=== PATIENT | female | born 1935 | race Caucasian/White ===

== ENCOUNTER 2021-03-13 06:15 | Inpatient (IN) ==
[2021-03-13] MEDS ORDERED: ASPIRIN 81 MG TAB.CHEW CHEWED ONE (06:17)
[2021-03-13] MEDS ORDERED: FUROSEMIDE 40 MG/4 ML VIAL IV ONE ×2 (06:29→07:44)
--- NOTE | 2021-03-13 06:34 | Emergency Department Note ---
SOB HPI General Chief Complaint: Shortness of Breath/Dyspnea Stated Complaint: shortness of breath Time Seen by Provider: 03/13/21 06:17 Source: patient Mode of arrival: wheelchair Limitations: no limitations History of Present Illness HPI Narrative: Narrative: 85-year-old female presents the emergency department complaining of shortness of breath and chest pain as well as epigastric pain. She does have history of open heart surgery including 3 valve replacement including ASD repair as well as bypass. Said this happened back in 1992. States that she has been doing well since. Says she does take Coumadin. Says she does have history of A. fib is unsure how often said tonight she woke up and had a hard time breathing. She does have anxiety. Also CHF where she does take 80 mg of Lasix daily. She has had no cough no congestion denies any fevers. She says the epigastric pain is right in radiating says about a 6 out of 10 no change with eating drinking or laying down. Said that she is never had this pain before. She is denying any other symptoms otherwise. Related Data Home Medications Medication Instructions Recorded Confirmed flaxseed 1,200 mg PO DAILY 08/12/15 01/07/21 glipizide 10 mg PO DAILY 08/12/15 01/07/21 metformin [Glucophage] 1,000 mg PO BID 08/12/15 01/07/21 nitroglycerin 0.4 mg SL Q5M PRN 08/12/15 01/07/21 potassium chloride [K-Tab ER] 20 meq PO DAILY 08/12/15 01/07/21 cholecalciferol (vitamin D3) 1,000 unit PO DAILY 02/01/18 01/07/21 [Vitamin D3] [id number]-lutein 1 ea PO DAILY 02/01/18 01/07/21 [Centrum Silver Tablet] Saccharomyces boulardii 1 tab PO QDAY 10/04/20 01/07/21 albuterol sulfate 90 mcg/actuation 2 puff INHALATION Q4H PRN g 10/04/20 01/07/21 aerosol inhaler aspirin 81 mg tablet 81 mg PO QDAY 10/04/20 01/07/21 blood-glucose meter #1 each 10/04/20 01/07/21 cholecalciferol (vitamin D3) 25 25 mcg PO QDAY 10/04/20 01/07/21 mcg (1,000 unit) tablet clotrimazole 1 % topical cream 1 applic TOPICAL BID 10/04/20 01/07/21 fluticasone propionate 50 2 spray INTRANASAL QDAY 10/04/20 01/07/21 mcg/actuation nasal spray,suspension fosinopril 40 mg tablet 40 mg PO DAILY 10/04/20 01/07/21 furosemide 40 mg tablet 80 mg PO QAM tab 10/04/20 01/07/21 lorazepam 0.5 mg tablet 0.5 mg PO QDAY PRN 10/04/20 01/07/21 metoprolol tartrate 25 mg tablet 25 mg PO BID tab 10/04/20 01/07/21 [id number] 1 tab PO QDAY 10/04/20 01/07/21 omega-3 fatty acids 1 tab PO QDAY 10/04/20 01/07/21 prazosin 1 mg capsule 2 mg PO BID cap 10/04/20 01/07/21 semaglutide 0.25 mg SUB-Q QWEEK 10/04/20 01/07/21 simvastatin 40 mg tablet 40 mg PO QDAY tab 10/04/20 01/07/21 sodium chloride 2.65 % nasal spray 1 % INTRANASAL Q1H ml 10/04/20 01/07/21 aerosol spironolactone 25 mg tablet 25 mg PO QDAY 10/04/20 01/07/21 warfarin 5 mg tablet 7.5 mg PO DAILY 10/04/20 01/07/21 Previous Rx's Medication Instructions Recorded metoprolol tartrate 25 mg PO BID #30 tab 02/01/18 diclofenac sodium 1 % topical gel 2 g .ROUTE .COMPLEX PRN #100 g 01/07/21 Allergies Allergy/AdvReac Type Severity Reaction Status Date / Time cephalexin Allergy Unknown Hives Verified 01/07/21 10:11 clopidogrel [From Plavix] Allergy Unknown Headache, Verified 01/07/21 10:11 Nausea digoxin Allergy Unknown Unknown Verified 01/07/21 10:11 Enoxaparin [From Lovenox] Allergy Unknown Unknown Verified 01/07/21 10:11 hydrocodone Allergy Unknown Nausea Verified 01/07/21 10:11 levofloxacin [From LEVAQUIN] Allergy Unknown UNKNOWN Verified 01/07/21 10:11 meperidine Allergy Unknown Nausea Verified 01/07/21 10:11 metronidazole [From FLAGYL] Allergy Unknown UNKNOWN Verified 01/07/21 10:11 Sulfa (Sulfonamide Allergy Unknown Unknown Verified 01/07/21 10:11 Antibiotics) Beta-Blockers AdvReac Unknown Unknown Verified 01/07/21 10:11 (Beta-Adrenergic Bloc Review of Systems ROS ROS Narrative: Narrative: All systems ED: reviewed and negative except as stated. PFS Narrative Patient History Narrative: Narrative: Medical/Surgical/Family History All Active Problems Chest pain (Acute) Acute dyspnea (Acute) Pulmonary edema (Chronic) Cervicalgia (Chronic) Cervical spondylosis (Chronic) Degenerative cervical disc (Chronic) Facet arthropathy, cervical (Chronic) Cervical radiculopathy (Chronic) Chronic pain (Chronic) Easy bruising (Chronic) Memory loss (Chronic) Arthralgia (Chronic) Constipation (Chronic) Heart palpitations (Chronic) Sinus problem (Chronic) Dry mouth (Chronic) Dry eyes (Chronic) Weight loss (Chronic) Anxiety (Chronic) Fracture closed, nasal bone (Chronic) SOB (shortness of breath) (Chronic) Osteopenia (Chronic) Osteoporosis (Chronic) Joint pain, knee (Chronic) Menopause (Chronic) Edema (Chronic) Dyspnea (Chronic) Diabetes mellitus, type II (Chronic ~06/16/18) Costochondritis (Chronic) Chest pain (Chronic) Cellulitis (Chronic) Anemia (Chronic) Sinusitis (Chronic) Abdominal pain (Chronic) History of surgery (Chronic ~1992) History of appendectomy (Chronic ~11/15/1943) History of cholecystectomy (Chronic ~11/15/1953) History of coronary artery bypass graft (Chronic ~11/15/92) History of surgical removal of lesion (Chronic ~11/15/07) History of abdominal surgery (Chronic ~11/15/01) History of hysterectomy (Chronic ~11/15/01) History of partial surgical removal of colon (Chronic ~11/15/01) History of cataract surgery (Chronic ~11/15/06) History of lumpectomy (Chronic) History of colonoscopy (Chronic ~07/07/12) History of total knee arthroplasty (Chronic) Vocal cord cancer (Chronic) History of throat surgery (Chronic) Malignant tumor of breast (Chronic ~06/16/18) Hypertensive disorder (Chronic ~02/08/18) Hyperlipidemia (Chronic ~02/08/18) Complicated grieving (Chronic ~03/27/18) History of coronary artery stent placement (Chronic ~2006) Coronary arteriosclerosis (Chronic ~06/16/18) Osteoarthritis (Chronic ~06/16/18) Atrial septal defect (Chronic ~06/16/18) Diverticular disease (Chronic ~06/16/18) Malignant tumor of larynx (Chronic ~06/16/18) Malignant neoplasm of skin (Chronic ~06/16/18) Diabetes mellitus (Chronic ~06/16/18) Chronic diastolic heart failure (Chronic ~03/28/19) On anticoagulant therapy (Chronic) Renovascular hypertension (Chronic ~12/21/19) 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) Bronchitis (Chronic) Congestive heart failure (Chronic) Paroxysmal SVT (supraventricular tachycardia) (Chronic) Atrial fibrillation (Chronic) S/P biopsy (Chronic 08/13/15) Medical History Abdominal pain Rt Lower Quadrant Anemia Anxiety Arthralgia Atrial fibrillation Atrial septal defect (~06/16/18) Bronchitis Cellulitis Chest Wall Cervical radiculopathy Cervical radiculopathy due to degenerative joint disease of spine Cervical spondylosis Cervicalgia Chest pain Chronic diastolic heart failure (~03/28/19) Chronic pain Complicated grieving (~03/27/18) Congestive heart failure Constipation Coronary arteriosclerosis (~06/16/18) Costochondritis Degenerative cervical disc Diabetes mellitus, type II (~06/16/18) Diverticular disease (~06/16/18) Dry eyes Dry mouth Dyspnea Easy bruising Edema Facet arthropathy, cervical Fracture closed, nasal bone Heart palpitations Hyperlipidemia (~02/08/18) Hypertensive disorder (~02/08/18) Joint pain, knee Malignant neoplasm of skin (~06/16/18) Malignant tumor of breast (~06/16/18) Right - Lumpectomy and Radiation Malignant tumor of larynx (~06/16/18) Memory loss Menopause On anticoagulant therapy Osteoarthritis (~06/16/18) Osteopenia Osteoporosis Paroxysmal SVT (supraventricular tachycardia) Renovascular hypertension (~12/21/19) Sinus problem Sinusitis SOB (shortness of breath) Vocal cord cancer Squamous Cell Carcinoma Weight loss Surgical History History of abdominal surgery (~11/15/01) Diverticular Abscess History of appendectomy (~11/15/1943) History of cataract surgery (~11/15/06) History of cholecystectomy (~11/15/1953) History of colonoscopy (~07/07/12) History of coronary artery bypass graft (~11/15/92) History of coronary artery stent placement (~2006) History of hysterectomy (~11/15/01) 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 Anish Quintanilla - Left Vocal Cord Family History Brother Acute myocardial infarction Diabetes mellitus Osteoarthritis Pneumonia Sister Diverticular disease Daughter Fibromyalgia Father Leukemia Osteoarthritis Malignant neoplasm of skin Mother , Age 53 CVA (cerebral vascular accident) Family/Other CVA (cerebral vascular accident) Other Colon cancer Social History Smoking Status: Former smoker Alcohol Intake Frequency: does not drink Substance Use: does not use Exam Narrative Narrative: Narrative: Vital signs noted General: Awake. Alert. No distress. Skin: Warm. Dry. No rash. HEENT: NCAT. PERRL. EOMI. No conjunctivitis. No nystagmus. No pharyngitis. Membranes moist. Neck: No PTP. Good ROM. No meningeal signs. No stridor. No thyromegaly. No JVD. Cardiovascular: Tachycardic and regular. No murmur. No rubs. No gallops. Respiratory: No respiratory distress. Breath sounds equal. Lungs clear. Gastrointestinal: Abdomen soft. No tenderness. No distention. Normal bowel sounds. No palpable organomegaly or masses. Back: No deformity. No CVAT. Musculoskeletal: No tenderness. No swelling. No erythema. 2+ bilateral pedal edema. Good peripheral pulses x 4 Lymphatic: No palpable adenopathy. Neurological: No focal neurological deficits observed. General Limitations: no limitations Course Vital Signs Vital signs: Vital Signs Temperature 97.1 F 03/13/21 06:17 Pulse Rate 105 H 03/13/21 06:17 Respiratory Rate 18 03/13/21 06:17 Blood Pressure 152/108 03/13/21 06:17 Pulse Oximetry (%) 95 03/13/21 06:17 Temperature 97.1 F 03/13/21 06:17 Pulse Rate 105 H 03/13/21 06:17 Respiratory Rate 18 03/13/21 06:17 Blood Pressure 152/108 03/13/21 06:17 Pulse Oximetry (%) 95 03/13/21 06:17 MDM MDM Narrative Medical decision making narrative: Narrative: Patient looks well on exam. She does have pitting edema. I did look at her previous history she is always in a BSA on all of her old previous EKGs so this is not new onset of atrial fibrillation. She originally was having a heart rate around 105 when I does show tachycardia in A. fib at 131. I think this is all secondary to most likely fluid overload. Chest x-ray I did interpret myself and does show vascular congestion throughout so I did give patient 40 mg of IV Lasix to help with the diuresis at this time. She also received aspirin to decrease mortality for ACS. Will get basic labs including CBC CMP troponin as well as a BNP. We will also get a lipase secondary to patient having his epigastric pain. Disposition will be pending results Patient still here at the end of my shift will be signed out to the daytime physician. Patient signed out in stable condition please refer to their note for further plan and disposition. Lab Data Result diagrams: 03/13/21 06:25 03/13/21 06:24 Discharge Plan Patient/Caregiver Discharge Instructions Pt seen by EMERGENCY ROOM DOCTOR/PA only: No Clinical Impression: Chest pain, Acute dyspnea Patient Disposition: Still a Patient Follow up with: Miranda Sinha MD [Primary Care Provider] - Prescriptions: No Action aspirin 81 mg tablet 81 mg PO QDAY RF: 0 [place] Allergy and Sinus 2.65 % aerosol,spray 1 % INTRANASAL Q1H RF: 0 [id number] 1 tab PO QDAY RF: 0 clotrimazole 1 % cream 1 applic TOPICAL BID RF: 0 (DME) blood-glucose meter [Contour Next Meter] Misc See Rx Instructions .ROUTE .MEDSUPPLY Qty: 1 RF: 0 omega-3 fatty acids 1 tab PO QDAY RF: 0 fluticasone propionate 50 mcg/actuation spray,suspension 2 spray INTRANASAL QDAY RF: 0 furosemide 40 mg tablet 80 mg PO QAM RF: 0 lorazepam 0.5 mg tablet 0.5 mg PO QDAY PRN (Reason: Anxiety) RF: 0 Ozempic 0.25 mg or 0.5 mg(2 mg/1.5 mL) pen injector 0.25 mg SUB-Q QWEEK RF: 0 Saccharomyces boulardii 1 tab PO QDAY RF: 0 spironolactone 25 mg tablet 25 mg PO QDAY RF: 0 albuterol sulfate [Ventolin HFA] 90 mcg/actuation HFA aerosol inhaler 2 puff INHALATION Q4H PRN (Reason: Shortness Of Breath) RF: 0 cholecalciferol (vitamin D3) 25 mcg (1,000 unit) tablet 25 mcg PO QDAY RF: 0 diclofenac sodium 1 % gel 2 g .ROUTE .COMPLEX PRN (Reason: pain) Qty: 100 RF: 0 metformin [Glucophage] 500 MG tablet 1,000 mg PO BID RF: 0 nitroglycerin 0.4 MG tablet, sublingual 0.4 mg SL Q5M PRN (Reason: Chest Pain) RF: 0 glipizide 5 MG tablet 10 mg PO DAILY RF: 0 flaxseed 1,000 MG capsule 1,200 mg PO DAILY RF: 0 potassium chloride [K-Tab] 20 MEQ tablet extended release 20 meq PO DAILY RF: 0 fosinopril 40 mg tablet 40 mg PO DAILY RF: 0 metoprolol tartrate 25 mg tablet 25 mg PO BID RF: 0 prazosin [Minipress] 1 mg capsule 2 mg PO BID RF: 0 simvastatin 40 mg tablet 40 mg PO QDAY RF: 0 warfarin [Jantoven] 5 mg tablet 7.5 mg PO DAILY RF: 0 Centrum Silver 1 EACH tablet 1 ea PO DAILY RF: 0 cholecalciferol (vitamin D3) [Vitamin D3] 1,000 UNIT tablet 1,000 unit PO DAILY RF: 0 metoprolol tartrate 25 MG tablet 25 mg PO BID Qty: 30 RF: 0
[2021-03-13 07:01] LABS: Basophils # (Auto) 0.07 K/mcL (0.00-0.20); Basophils % (Auto) 0.7 % (0.0-2.0); Lymphocytes # (Auto) 1.21 K/mcL (1.50-4.80); Mean Cell Volume 99.7 fL (80.0-100.0); Mean Corpuscular HGB Conc 33.3 g/dL (31.0-36.0); Mean Platelet Volume 10.4 fL (7.4-10.4); Monocytes # (Auto) 0.93 K/mcL (0.10-0.90); Monocytes % (Auto) 9.2 % (1.0-12.0); Neutrophils % (Auto) 76.1 % (38.0-78.0); Platelet Count 213 K/mcL (140-440); RBC 3.61 M/mcL (4.00-5.20); WBC 10.1 K/mcL (4.5-11.0)
[2021-03-13 07:37] LABS: ALT/SGPT 25 U/L (<40); AST/SGOT 29 U/L (<32); Albumin 4.3 gm/dL (3.2-5.2); Albumin/Globulin Ratio 1.8 (1.0-2.3); Alkaline Phosphatase 81 U/L (39-117); Bilirubin,Total 0.5 mg/dL (0.1-1.0); Blood Urea Nitrogen 19 mg/dL (8-23); Calcium 8.8 mg/dL (8.6-10.4); Carbon Dioxide 24 mmol/L (22-30); Chloride 102 mmol/L (96-108); Globulin 2.4 gm/dL (2.2-3.7); Glomerular Filtration Rate 51; Glucose 225 mg/dL (70-105)
[2021-03-13] MEDS ORDERED: DILTIAZEM 25 MG/5 ML VIAL IV ONE (07:39)
[2021-03-13] MEDS ORDERED: DILTIAZEM 125 MG in DEXTROSE 5% IN WATER 100 ML IV SCH (07:45)
--- NOTE | 2021-03-13 09:02 | Emergency Department Note ---
SOB HPI General Chief Complaint: Shortness of Breath/Dyspnea Stated Complaint: shortness of breath Time Seen by Provider: 03/13/21 06:17 Source: patient Mode of arrival: wheelchair Limitations: no limitations History of Present Illness HPI Narrative: Narrative: Related Data Home Medications Medication Instructions Recorded Confirmed flaxseed 1,200 mg PO DAILY 08/12/15 01/07/21 glipizide 10 mg PO DAILY 08/12/15 01/07/21 metformin [Glucophage] 1,000 mg PO BID 08/12/15 01/07/21 nitroglycerin 0.4 mg SL Q5M PRN 08/12/15 01/07/21 potassium chloride [K-Tab ER] 20 meq PO DAILY 08/12/15 01/07/21 cholecalciferol (vitamin D3) 1,000 unit PO DAILY 02/01/18 01/07/21 [Vitamin D3] [id number]-lycopen-lutein 1 ea PO DAILY 02/01/18 01/07/21 [Centrum Silver Tablet] Saccharomyces boulardii 1 tab PO QDAY 10/04/20 01/07/21 albuterol sulfate 90 mcg/actuation 2 puff INHALATION Q4H PRN g 10/04/20 01/07/21 aerosol inhaler aspirin 81 mg tablet 81 mg PO QDAY 10/04/20 01/07/21 blood-glucose meter #1 each 10/04/20 01/07/21 cholecalciferol (vitamin D3) 25 25 mcg PO QDAY 10/04/20 01/07/21 mcg (1,000 unit) tablet clotrimazole 1 % topical cream 1 applic TOPICAL BID 10/04/20 01/07/21 fluticasone propionate 50 2 spray INTRANASAL QDAY 10/04/20 01/07/21 mcg/actuation nasal spray,suspension fosinopril 40 mg tablet 40 mg PO DAILY 10/04/20 01/07/21 furosemide 40 mg tablet 80 mg PO QAM tab 10/04/20 01/07/21 lorazepam 0.5 mg tablet 0.5 mg PO QDAY PRN 10/04/20 01/07/21 metoprolol tartrate 25 mg tablet 25 mg PO BID tab 10/04/20 01/07/21 cocatpueaodo-zohgzark-hitfve 1 tab PO QDAY 10/04/20 01/07/21 omega-3 fatty acids 1 tab PO QDAY 10/04/20 01/07/21 prazosin 1 mg capsule 2 mg PO BID cap 10/04/20 01/07/21 semaglutide 0.25 mg SUB-Q QWEEK 10/04/20 01/07/21 simvastatin 40 mg tablet 40 mg PO QDAY tab 10/04/20 01/07/21 sodium chloride 2.65 % nasal spray 1 % INTRANASAL Q1H ml 10/04/20 01/07/21 aerosol spironolactone 25 mg tablet 25 mg PO QDAY 10/04/20 01/07/21 warfarin 5 mg tablet 7.5 mg PO DAILY 10/04/20 01/07/21 Previous Rx's Medication Instructions Recorded metoprolol tartrate 25 mg PO BID #30 tab 02/01/18 diclofenac sodium 1 % topical gel 2 g .ROUTE .COMPLEX PRN #100 g 01/07/21 Allergies Allergy/AdvReac Type Severity Reaction Status Date / Time cephalexin Allergy Unknown Hives Verified 01/07/21 10:11 clopidogrel [From Plavix] Allergy Unknown Headache, Verified 01/07/21 10:11 Nausea digoxin Allergy Unknown Unknown Verified 01/07/21 10:11 Enoxaparin [From Lovenox] Allergy Unknown Unknown Verified 01/07/21 10:11 hydrocodone Allergy Unknown Nausea Verified 01/07/21 10:11 levofloxacin [From LEVAQUIN] Allergy Unknown UNKNOWN Verified 01/07/21 10:11 meperidine Allergy Unknown Nausea Verified 01/07/21 10:11 metronidazole [From FLAGYL] Allergy Unknown UNKNOWN Verified 01/07/21 10:11 Sulfa (Sulfonamide Allergy Unknown Unknown Verified 01/07/21 10:11 Antibiotics) Beta-Blockers AdvReac Unknown Unknown Verified 01/07/21 10:11 (Beta-Adrenergic Bloc Review of Systems ROS ROS Narrative: Narrative: PFSH Narrative Patient History Narrative: Narrative: Medical/Surgical/Family History All Active Problems Chest pain (Acute) Acute dyspnea (Acute) Pulmonary edema (Acute) Pulmonary edema (Chronic) Cervicalgia (Chronic) Cervical spondylosis (Chronic) Degenerative cervical disc (Chronic) Facet arthropathy, cervical (Chronic) Cervical radiculopathy (Chronic) Chronic pain (Chronic) Easy bruising (Chronic) Memory loss (Chronic) Arthralgia (Chronic) Constipation (Chronic) Heart palpitations (Chronic) Sinus problem (Chronic) Dry mouth (Chronic) Dry eyes (Chronic) Weight loss (Chronic) Anxiety (Chronic) Fracture closed, nasal bone (Chronic) SOB (shortness of breath) (Chronic) Osteopenia (Chronic) Osteoporosis (Chronic) Joint pain, knee (Chronic) Menopause (Chronic) Edema (Chronic) Dyspnea (Chronic) Diabetes mellitus, type II (Chronic ~06/16/18) Costochondritis (Chronic) Chest pain (Chronic) Cellulitis (Chronic) Anemia (Chronic) Sinusitis (Chronic) Abdominal pain (Chronic) History of surgery (Chronic ~1992) History of appendectomy (Chronic ~11/15/1943) History of cholecystectomy (Chronic ~11/15/1953) History of coronary artery bypass graft (Chronic ~11/15/92) History of surgical removal of lesion (Chronic ~11/15/07) History of abdominal surgery (Chronic ~11/15/01) History of hysterectomy (Chronic ~11/15/01) History of partial surgical removal of colon (Chronic ~11/15/01) History of cataract surgery (Chronic ~11/15/06) History of lumpectomy (Chronic) History of colonoscopy (Chronic ~07/07/12) History of total knee arthroplasty (Chronic) Vocal cord cancer (Chronic) History of throat surgery (Chronic) Malignant tumor of breast (Chronic ~06/16/18) Hypertensive disorder (Chronic ~02/08/18) Hyperlipidemia (Chronic ~02/08/18) Complicated grieving (Chronic ~03/27/18) History of coronary artery stent placement (Chronic ~2006) Coronary arteriosclerosis (Chronic ~06/16/18) Osteoarthritis (Chronic ~06/16/18) Atrial septal defect (Chronic ~06/16/18) Diverticular disease (Chronic ~06/16/18) Malignant tumor of larynx (Chronic ~06/16/18) Malignant neoplasm of skin (Chronic ~06/16/18) Diabetes mellitus (Chronic ~06/16/18) Chronic diastolic heart failure (Chronic ~03/28/19) On anticoagulant therapy (Chronic) Renovascular hypertension (Chronic ~12/21/19) 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) Bronchitis (Chronic) Congestive heart failure (Chronic) Paroxysmal SVT (supraventricular tachycardia) (Chronic) Atrial fibrillation (Chronic) S/P biopsy (Chronic 08/13/15) Medical History Abdominal pain Rt Lower Quadrant Anemia Anxiety Arthralgia Atrial fibrillation Atrial septal defect (~06/16/18) Bronchitis Cellulitis Chest Wall Cervical radiculopathy Cervical radiculopathy due to degenerative joint disease of spine Cervical spondylosis Cervicalgia Chest pain Chronic diastolic heart failure (~03/28/19) Chronic pain Complicated grieving (~03/27/18) Congestive heart failure Constipation Coronary arteriosclerosis (~06/16/18) Costochondritis Degenerative cervical disc Diabetes mellitus, type II (~06/16/18) Diverticular disease (~06/16/18) Dry eyes Dry mouth Dyspnea Easy bruising Edema Facet arthropathy, cervical Fracture closed, nasal bone Heart palpitations Hyperlipidemia (~02/08/18) Hypertensive disorder (~02/08/18) Joint pain, knee Malignant neoplasm of skin (~06/16/18) Malignant tumor of breast (~06/16/18) Right - Lumpectomy and Radiation Malignant tumor of larynx (~06/16/18) Memory loss Menopause On anticoagulant therapy Osteoarthritis (~06/16/18) Osteopenia Osteoporosis Paroxysmal SVT (supraventricular tachycardia) Renovascular hypertension (~12/21/19) Sinus problem Sinusitis SOB (shortness of breath) Vocal cord cancer Squamous Cell Carcinoma Weight loss Surgical History History of abdominal surgery (~11/15/01) Diverticular Abscess History of appendectomy (~11/15/1943) History of cataract surgery (~11/15/06) History of cholecystectomy (~11/15/1953) History of colonoscopy (~07/07/12) History of coronary artery bypass graft (~11/15/92) History of coronary artery stent placement (~2006) History of hysterectomy (~11/15/01) 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 Anish Quintanilla - Left Vocal Cord Family History Brother Acute myocardial infarction Diabetes mellitus Osteoarthritis Pneumonia Sister Diverticular disease Daughter Fibromyalgia Father Leukemia Osteoarthritis Malignant neoplasm of skin Mother , Age 53 CVA (cerebral vascular accident) Family/Other CVA (cerebral vascular accident) Other Colon cancer Social History Smoking Status: Former smoker Alcohol Intake Frequency: does not drink Substance Use: does not use Exam Narrative Narrative: Narrative: General Limitations: no limitations Course Vital Signs Vital signs: Vital Signs Temperature 97.1 F 03/13/21 06:17 Pulse Rate 105 H 03/13/21 06:17 Respiratory Rate 18 03/13/21 06:17 Blood Pressure 152/108 03/13/21 06:17 Pulse Oximetry (%) 95 03/13/21 06:17 Temperature 97.1 F 03/13/21 06:17 Pulse Rate 64 03/13/21 08:43 Respiratory Rate 21 03/13/21 08:43 Blood Pressure 135/80 03/13/21 08:35 Pulse Oximetry (%) 95 03/13/21 08:43 MDM MDM Narrative Medical decision making narrative: Narrative: Lab Data Lab results reviewed: Yes I reviewed the patient's lab results. Result diagrams: 03/13/21 06:25 03/13/21 06:24 Labs: Lab Results 03/13/21 03/13/21 03/13/21 Range/Units 06:24 06:24 06:25 WBC 10.1 (4.5-11.0) K/mcL RBC 3.61 L (4.00-5.20) M/mcL Hgb 12.0 (12.0-15.0) g/dL Hct 36.0 (36.0-48.0) % MCV 99.7 (80.0-100.0) fL MCH 33.2 (26.0-34.0) pg MCHC 33.3 (31.0-36.0) g/dL RDW 14.0 (11.5-14.5) % Plt Count 213 (140-440) K/mcL MPV 10.4 (7.4-10.4) fL Neut % (Auto) 76.1 (38.0-78.0) % Lymph % (Auto) 12.0 L (15.0-49.0) % [place] % (Auto) 9.2 (1.0-12.0) % Eos % (Auto) 2.0 (0.0-7.0) % Baso % (Auto) 0.7 (0.0-2.0) % Lymph # (Auto) 1.21 L (1.50-4.80) K/mcL [place] # (Auto) 0.93 H (0.10-0.90) K/mcL Eos # (Auto) 0.20 (0.00-0.70) K/mcL Baso # (Auto) 0.07 (0.00-0.20) K/mcL Absolute Neutrophils 7.67 (1.80-8.00) K/mcL Sodium 139 (133-145) mmol/L Potassium 3.9 (3.3-5.1) mmol/L Chloride 102 (96-108) mmol/L Carbon Dioxide 24 (22-30) mmol/L Anion Gap 13.0 (8.0-16.0) BUN 19 (8-23) mg/dL Creatinine 1.0 (0.6-1.1) mg/dL GFR Calculation 51 Glucose 225 H (70-105) mg/dL Calcium 8.8 (8.6-10.4) mg/dL Total Bilirubin 0.5 (0.1-1.0) mg/dL AST 29 (<32) U/L ALT 25 (<40) U/L Alkaline Phosphatase 81 (39-117) U/L Troponin T < 0.01 (<0.03) ng/mL NT-Pro-B Natriuret Pep 4235.0 H (<450.0) pg/mL Total Protein 6.7 (5.9-8.4) gm/dL Albumin 4.3 (3.2-5.2) gm/dL Globulin 2.4 (2.2-3.7) gm/dL Albumin/Globulin Ratio 1.8 (1.0-2.3) Lipase 34 (7-60) U/L Radiology Data Radiology results reviewed: Yes I reviewed the patient's radiology results. EKG Data EKG #1: EKG attestation: Yes I reviewed and interpreted this EKG., Yes There are no EKG findings of acute coronary syndrome and Yes This EKG will be read by service aide EKG results narrative: Atrial fibrillation, rate 131, nonspecific interventricular conduction delay Rhythm Strip Data Rhythm Strip Rate: 130 Interpretation: Atrial fibrillation with rapid ventricular response Pulse Oximetry Data Pulse Ox %: 95 Interpretation: Room air, normal CC TIME Critical Care Time Critical Care Time: Yes Total Critical Care Time: 30 Attestation: Approximately 30 minutes of critical care time was used in order to assess and manage the high probability of imminent or life threatening deterioration which required my highest level of preparedness and interventions with frequent patient assessments. This time is excluding time spent on separately billable procedures. I assumed care at the beginning of my shift at 0700 from the initial treating provider. I have reviewed the patient's history at the bedside and examined the patient. I have also reviewed the initial treating provider's documentation. The patient is in atrial fibrillation with rapid ventricular response. The patient was given Cardizem 10 mg IV followed by a drip at 5 mg an hour. The patient's rate was well controlled in the 70-80 range after this medication. The patient does take Lasix 80 mg orally per day and an additional dose of Lasix at 40 mg IV was given by myself for a total of 80 mg. Kamara catheter was placed. On repeat examination the patient is feeling much better. Her labs are unremarkable. The patient will benefit from admission for continued diuresis and rate control I have discussed the case with the admitting hospitalist, Dr. Brady. We will admit to the PCU. Discharge Plan Patient/Caregiver Discharge Instructions Pt seen by TICKET SELLER/PA only: No Clinical Impression: Chest pain, Acute dyspnea, Atrial fibrillation, Pulmonary edema Patient Disposition: Xfer As Inpt ([facility]) Follow up with: Miranda Sinha MD [Primary Care Provider] - Prescriptions: No Action aspirin 81 mg tablet 81 mg PO QDAY RF: 0 [place] Allergy and Sinus 2.65 % aerosol,spray 1 % INTRANASAL Q1H RF: 0 [id number]-swfsktcq-jkdmrt 1 tab PO QDAY RF: 0 clotrimazole 1 % cream 1 applic TOPICAL BID RF: 0 (DME) blood-glucose meter [Contour Next Meter] Misc See Rx Instructions .ROUTE .MEDSUPPLY Qty: 1 RF: 0 omega-3 fatty acids 1 tab PO QDAY RF: 0 fluticasone propionate 50 mcg/actuation spray,suspension 2 spray INTRANASAL QDAY RF: 0 furosemide 40 mg tablet 80 mg PO QAM RF: 0 lorazepam 0.5 mg tablet 0.5 mg PO QDAY PRN (Reason: Anxiety) RF: 0 Ozempic 0.25 mg or 0.5 mg(2 mg/1.5 mL) pen injector 0.25 mg SUB-Q QWEEK RF: 0 Saccharomyces boulardii 1 tab PO QDAY RF: 0 spironolactone 25 mg tablet 25 mg PO QDAY RF: 0 albuterol sulfate [Ventolin HFA] 90 mcg/actuation HFA aerosol inhaler 2 puff INHALATION Q4H PRN (Reason: Shortness Of Breath) RF: 0 cholecalciferol (vitamin D3) 25 mcg (1,000 unit) tablet 25 mcg PO QDAY RF: 0 diclofenac sodium 1 % gel 2 g .ROUTE .COMPLEX PRN (Reason: pain) Qty: 100 RF: 0 metformin [Glucophage] 500 MG tablet 1,000 mg PO BID RF: 0 nitroglycerin 0.4 MG tablet, sublingual 0.4 mg SL Q5M PRN (Reason: Chest Pain) RF: 0 glipizide 5 MG tablet 10 mg PO DAILY RF: 0 flaxseed 1,000 MG capsule 1,200 mg PO DAILY RF: 0 potassium chloride [K-Tab] 20 MEQ tablet extended release 20 meq PO DAILY RF: 0 fosinopril 40 mg tablet 40 mg PO DAILY RF: 0 metoprolol tartrate 25 mg tablet 25 mg PO BID RF: 0 prazosin [Minipress] 1 mg capsule 2 mg PO BID RF: 0 simvastatin 40 mg tablet 40 mg PO QDAY RF: 0 warfarin [Jantoven] 5 mg tablet 7.5 mg PO DAILY RF: 0 Centrum Silver 1 EACH tablet 1 ea PO DAILY RF: 0 cholecalciferol (vitamin D3) [Vitamin D3] 1,000 UNIT tablet 1,000 unit PO DAILY RF: 0 metoprolol tartrate 25 MG tablet 25 mg PO BID Qty: 30 RF: 0
--- NOTE | 2021-03-13 09:22 | XRay Report ---
CLINICAL INFORMATION: dyspnea COMPARISON: 12/25/2020 plain film and chest CT 02/01/2018 FINDINGS: Heart is markedly enlarged-increased. Mediastinum shows mild widening. Pulmonary vessels are moderately distended with moderate interstitial edema throughout both lungs. Underlying chronic bronchitis known from 02/01/[address] IMPRESSION: Moderate CHF. Chronic bronchitis. Interpreted and Authenticated by: Raghavendra Snow 03/13/21
--- NOTE | 2021-03-13 09:22 | Internal Med History&Physical ---
HPI History of Present Illness Patient information: Note initiated : 03/13/21 at 9:16 am Service Date, if different from initiated Date: [] Patient: Carly Jaime 85 y/o F admitted on for Shortness of breath. Chief Complaint: [] History of present illness: Ms. Jaime is a 85 year old F Presents to ED with shortness of breath that started several hours prior to presenting to the ED. She says she went to bed woke up with shortness of breath. She had some abdominal achy pain no chest pain she says but she says it was a little tight. In the ED she was found to be in A. fib RVR. Troponin was unremarkable. Chest x-ray showed CHF. She was given diltiazem bolus and drip and Lasix with improvement in her symptoms. Heart rate was up to 130s better controlled this point. Vital signs are stable. Laboratory unremarkable except for elevated blood glucose. And proBNP quite elevated. She denies any increased swelling in her legs. Does not remember the last time she had an echocardiogram. She does have a mild cough she feels related to allergies. In the ED she had over 775 cc of urine output after the Lasix Review of Systems: Pertinent positives as above plus headache. Denies /fever/chills/nausea/vomiting/diarrhea. Remaining 10 point review of system reviewed negative PFSH PFSH All Active Problems Chest pain (Acute) Acute dyspnea (Acute) Pulmonary edema (Acute) Pulmonary edema (Chronic) Cervicalgia (Chronic) Cervical spondylosis (Chronic) Degenerative cervical disc (Chronic) Facet arthropathy, cervical (Chronic) Cervical radiculopathy (Chronic) Chronic pain (Chronic) Easy bruising (Chronic) Memory loss (Chronic) Arthralgia (Chronic) Constipation (Chronic) Heart palpitations (Chronic) Sinus problem (Chronic) Dry mouth (Chronic) Dry eyes (Chronic) Weight loss (Chronic) Anxiety (Chronic) Fracture closed, nasal bone (Chronic) SOB (shortness of breath) (Chronic) Osteopenia (Chronic) Osteoporosis (Chronic) Joint pain, knee (Chronic) Menopause (Chronic) Edema (Chronic) Dyspnea (Chronic) Diabetes mellitus, type II (Chronic ~06/16/18) Costochondritis (Chronic) Chest pain (Chronic) Cellulitis (Chronic) Anemia (Chronic) Sinusitis (Chronic) Abdominal pain (Chronic) History of surgery (Chronic ~1992) History of appendectomy (Chronic ~11/15/1943) History of cholecystectomy (Chronic ~11/15/1953) History of coronary artery bypass graft (Chronic ~11/15/92) History of surgical removal of lesion (Chronic ~11/15/07) History of abdominal surgery (Chronic ~11/15/01) History of hysterectomy (Chronic ~11/15/01) History of partial surgical removal of colon (Chronic ~11/15/01) History of cataract surgery (Chronic ~11/15/06) History of lumpectomy (Chronic) History of colonoscopy (Chronic ~07/07/12) History of total knee arthroplasty (Chronic) Vocal cord cancer (Chronic) History of throat surgery (Chronic) Malignant tumor of breast (Chronic ~06/16/18) Hypertensive disorder (Chronic ~02/08/18) Hyperlipidemia (Chronic ~02/08/18) Complicated grieving (Chronic ~03/27/18) History of coronary artery stent placement (Chronic ~2006) Coronary arteriosclerosis (Chronic ~06/16/18) Osteoarthritis (Chronic ~06/16/18) Atrial septal defect (Chronic ~06/16/18) Diverticular disease (Chronic ~06/16/18) Malignant tumor of larynx (Chronic ~06/16/18) Malignant neoplasm of skin (Chronic ~06/16/18) Diabetes mellitus (Chronic ~06/16/18) Chronic diastolic heart failure (Chronic ~03/28/19) On anticoagulant therapy (Chronic) Renovascular hypertension (Chronic ~12/21/19) 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) Bronchitis (Chronic) Congestive heart failure (Chronic) Paroxysmal SVT (supraventricular tachycardia) (Chronic) Atrial fibrillation (Chronic) S/P biopsy (Chronic 08/13/15) Medical History Abdominal pain Rt Lower Quadrant Anemia Anxiety Arthralgia Atrial fibrillation Atrial septal defect (~06/16/18) Bronchitis Cellulitis Chest Wall Cervical radiculopathy Cervical radiculopathy due to degenerative joint disease of spine Cervical spondylosis Cervicalgia Chest pain Chronic diastolic heart failure (~03/28/19) Chronic pain Complicated grieving (~03/27/18) Congestive heart failure Constipation Coronary arteriosclerosis (~06/16/18) Costochondritis Degenerative cervical disc Diabetes mellitus, type II (~06/16/18) Diverticular disease (~06/16/18) Dry eyes Dry mouth Dyspnea Easy bruising Edema Facet arthropathy, cervical Fracture closed, nasal bone Heart palpitations Hyperlipidemia (~02/08/18) Hypertensive disorder (~02/08/18) Joint pain, knee Malignant neoplasm of skin (~06/16/18) Malignant tumor of breast (~06/16/18) Right - Lumpectomy and Radiation Malignant tumor of larynx (~06/16/18) Memory loss Menopause On anticoagulant therapy Osteoarthritis (~06/16/18) Osteopenia Osteoporosis Paroxysmal SVT (supraventricular tachycardia) Renovascular hypertension (~12/21/19) Sinus problem Sinusitis SOB (shortness of breath) Vocal cord cancer Squamous Cell Carcinoma Weight loss Surgical History History of abdominal surgery (~11/15/01) Diverticular Abscess History of appendectomy (~11/15/1943) History of cataract surgery (~11/15/06) History of cholecystectomy (~11/15/1953) History of colonoscopy (~07/07/12) History of coronary artery bypass graft (~11/15/92) History of coronary artery stent placement (~2006) History of hysterectomy (~11/15/01) 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 Anish Quintanilla - Left Vocal Cord Family History Brother Acute myocardial infarction Diabetes mellitus Osteoarthritis Pneumonia Sister Diverticular disease Daughter Fibromyalgia Father Leukemia Osteoarthritis Malignant neoplasm of skin Mother , Age 53 CVA (cerebral vascular accident) Family/Other CVA (cerebral vascular accident) Other Colon cancer Social History (Updated 10/08/20 @ 15:50 by Little Gibson) marital status: education level: high school occupational status: retired sexually active: No well-balanced diet: daily or most days alcohol intake frequency: does not drink substance use type: does not use seatbelt use: always firearms in home: Yes MEDS/ALLERGIES Home Medications and Allergies Home Medications Medication Instructions Recorded Confirmed Type flaxseed 1,200 mg PO DAILY 08/12/15 01/07/21 History glipizide 10 mg PO DAILY 08/12/15 01/07/21 History metformin [Glucophage] 1,000 mg PO BID 08/12/15 01/07/21 History nitroglycerin 0.4 mg SL Q5M PRN 08/12/15 01/07/21 History potassium chloride [K-Tab ER] 20 meq PO DAILY 08/12/15 01/07/21 History cholecalciferol (vitamin D3) 1,000 unit PO DAILY 02/01/18 01/07/21 History [Vitamin D3] metoprolol tartrate 25 mg PO BID #30 tab 02/01/18 01/07/21 Rx mcepuiqz-wxv-ZT-lycopen-lutein 1 ea PO DAILY 02/01/18 01/07/21 History [Centrum Silver Tablet] Saccharomyces boulardii 1 tab PO QDAY 10/04/20 01/07/21 History albuterol sulfate 90 mcg/actuation 2 puff INHALATION Q4H PRN g 10/04/2012/17 History aerosol inhaler aspirin 81 mg tablet 81 mg PO QDAY 10/04/20 01/07/21 History blood-glucose meter #1 each 10/04/20 01/07/21 History cholecalciferol (vitamin D3) 25 25 mcg PO QDAY 10/04/20 01/07/21 History mcg (1,000 unit) tablet clotrimazole 1 % topical cream 1 applic TOPICAL BID 10/04/20 01/07/21 History fluticasone propionate 50 2 spray INTRANASAL QDAY 10/04/20 01/07/21 History mcg/actuation nasal spray,suspension fosinopril 40 mg tablet 40 mg PO DAILY 10/04/20 01/07/21 History furosemide 40 mg tablet 80 mg PO QAM tab 10/04/20 01/07/21 History lorazepam 0.5 mg tablet 0.5 mg PO QDAY PRN 10/04/20 01/07/21 History metoprolol tartrate 25 mg tablet 25 mg PO BID tab 10/04/20 01/07/21 History kyhwkrqgbqgw-chqzrebi-zqeuka 1 tab PO QDAY 10/04/20 01/07/21 History omega-3 fatty acids 1 tab PO QDAY 10/04/20 01/07/21 History prazosin 1 mg capsule 2 mg PO BID cap 10/04/20 01/07/21 History semaglutide 0.25 mg SUB-Q QWEEK 10/04/20 01/07/21 History simvastatin 40 mg tablet 40 mg PO QDAY tab 10/04/20 01/07/21 History sodium chloride 2.65 % nasal spray 1 % INTRANASAL Q1H ml 10/04/20 01/07/21 History aerosol spironolactone 25 mg tablet 25 mg PO QDAY 10/04/20 01/07/21 History warfarin 5 mg tablet 7.5 mg PO DAILY 10/04/20 01/07/21 History diclofenac sodium 1 % topical gel 2 g .ROUTE .COMPLEX PRN #100 g 01/07/21 01/07/21 Rx Allergies Allergy/AdvReac Type Severity Reaction Status Date / Time cephalexin Allergy Unknown Hives Verified 01/07/21 10:11 clopidogrel [From Plavix] Allergy Unknown Headache, Verified 01/07/21 10:11 Nausea digoxin Allergy Unknown Unknown Verified 01/07/21 10:11 Enoxaparin [From Lovenox] Allergy Unknown Unknown Verified 01/07/21 10:11 hydrocodone Allergy Unknown Nausea Verified 01/07/21 10:11 levofloxacin [From LEVAQUIN] Allergy Unknown UNKNOWN Verified 01/07/21 10:11 meperidine Allergy Unknown Nausea Verified 01/07/21 10:11 metronidazole [From FLAGYL] Allergy Unknown UNKNOWN Verified 01/07/21 10:11 Sulfa (Sulfonamide Allergy Unknown Unknown Verified 01/07/21 10:11 Antibiotics) Beta-Blockers AdvReac Unknown Unknown Verified 01/07/21 10:11 (Beta-Adrenergic Bloc EXAM Constitutional Vitals: Temp Pulse Resp BP Pulse Ox 97.1 F 64 21 135/80 95 03/13/21 06:17 03/13/21 08:43 03/13/21 08:43 03/13/21 08:35 03/13/21 08:43 Exam: General: Alert, Awake, No acute Distress Eyes/N/T: EOMI, PERRL, Head/Neck: neck supple, normocephalic atraumatic, hepatojugular reflux CV: irreg irreg, No murmurs, normal s1/s2 Pulm: Clear b/l, no wheezing/rhonchi/rales Abd: soft, nontender, +BS x4 Ext: no clubbing/cyanosis, trace b/l LE edema Neuro: Alert, no focal deficits, moves all extremities, CN 2-12 grossly intact, symmetrical strength b/l upper/lower, sensations intact b/l upper/lower Skin: warm/dry DATA Data Completed and Pending Labs: Labs from last 24 hours 03/13/21 03/13/21 03/13/21 08:30 06:25 06:24 WBC 10.1 RBC 3.61 L Hgb 12.0 Hct 36.0 MCV 99.7 MCH 33.2 MCHC 33.3 RDW 14.0 Plt Count 213 MPV 10.4 Neut % (Auto) 76.1 Lymph % (Auto) 12.0 L [place] % (Auto) 9.2 Eos % (Auto) 2.0 Baso % (Auto) 0.7 Lymph # (Auto) 1.21 L [place] # (Auto) 0.93 H Eos # (Auto) 0.20 Baso # (Auto) 0.07 Absolute Neutrophils 7.67 PT Pending INR Pending Sodium Potassium Chloride Carbon Dioxide Anion Gap BUN Creatinine GFR Calculation Glucose Calcium Total Bilirubin AST ALT Alkaline Phosphatase Troponin T < 0.01 NT-Pro-B Natriuret Pep Total Protein Albumin Globulin Albumin/Globulin Ratio Lipase 03/13/21 06:24 WBC RBC Hgb Hct MCV MCH MCHC RDW Plt Count MPV Neut % (Auto) Lymph % (Auto) [place] % (Auto) Eos % (Auto) Baso % (Auto) Lymph # (Auto) [place] # (Auto) Eos # (Auto) Baso # (Auto) Absolute Neutrophils PT INR Sodium 139 Potassium 3.9 Chloride 102 Carbon Dioxide 24 Anion Gap 13.0 BUN 19 Creatinine 1.0 GFR Calculation 51 Glucose 225 H Calcium 8.8 Total Bilirubin 0.5 AST 29 ALT 25 Alkaline Phosphatase 81 Troponin T NT-Pro-B Natriuret Pep 4235.0 H Total Protein 6.7 Albumin 4.3 Globulin 2.4 Albumin/Globulin Ratio 1.8 Lipase 34 A/P Narrative A/P Narrative: A: *A. fib with RVR: *Acute on chronic CHF: *CAD w/CABG-stent: *DM: *Anxiety: *CKD III: *anemia, chronic P: -Wean off diltiazem drip to beta-aliza -IV Lasix,monitor I/o,weights, uop -echo pending -adjust home BB as needed for rate control -cont ACEI, cont ASA/statin -Basal insulin and SSI -clarify meds - -PT/OT -ppx: lovenox-warfarin bridge per pharm DNR Time Spent With Patient Time: Total time spent is greater than 50% in coordination of care (as documented) at patient's floor/unit and/or counseling patient:
[2021-03-13 09:26] LABS: INR 1.3 (0.9-1.1); Prothrombin Time 16.5 sec (11.9-14.5)
[2021-03-13] MEDS ORDERED: ONDANSETRON 4 MG/2 ML VIAL IV PRN (11:23)
[2021-03-13] MEDS ORDERED: LACTULOSE 20 GM/30 ML ORAL.SOL PO PRN (11:23)
[2021-03-13] MEDS ORDERED: SENNOSIDES 1 TABLET PO PRN (11:23)
[2021-03-13] MEDS ORDERED: IPRATROPIUM/ALBUTEROL 3 ML AMPUL.NEB NEB PRN (11:23)
[2021-03-13] MEDS ORDERED: METOPROLOL TARTRATE 5 MG/5 ML VIAL IV PRN (11:23)
[2021-03-13] MEDS ORDERED: POTASSIUM CHLORIDE 20 MEQ TABLET PO PRN ×2 (11:23)
[2021-03-13] MEDS ORDERED: DEXTROSE 31 GM ORAL.SUSP PO PRN (11:23)
[2021-03-13] MEDS ORDERED: POTASSIUM CHLORIDE 40 MEQ in DEXTROSE 5% IN WATER 500 ML IV PRN (11:23)
[2021-03-13] MEDS ORDERED: MAGNESIUM SULFATE 2 GM/50 ML BAG IV PRN (11:23)
[2021-03-13] MEDS ORDERED: DEXTROSE 50% 50 ML VIAL IV PRN (11:23)
[2021-03-13] MEDS: METOPROLOL TARTRATE 25 MG TABLET PO SCH ×2 (12:02→20:09)
[2021-03-13] MEDS: INSULIN LISPRO 1 UNIT/0.01 ML UNIT SQ SCH ×3 (12:10→20:10)
[2021-03-13] MEDS: 0.9 % SODIUM CHLORIDE 10 ML SYRINGE IV SCH ×2 (15:50→20:11)
[2021-03-13] MEDS: ENOXAPARIN 80 MG/0.8 ML SYRINGE SQ SCH (15:52)
[2021-03-13] MEDS: FUROSEMIDE 40 MG/4 ML VIAL IV SCH (16:38)
[2021-03-13] MEDS: DOCUSATE SODIUM 100 MG CAPSULE PO SCH (20:09)
[2021-03-13] MEDS: INSULIN GLARGINE, HUMAN 1 UNIT/0.01 ML SQ SCH (20:10)
[2021-03-14] MEDS: ENOXAPARIN 80 MG/0.8 ML SYRINGE SQ SCH ×3 (01:05→20:33)
[2021-03-14] MEDS: 0.9 % SODIUM CHLORIDE 10 ML SYRINGE IV SCH ×3 (05:04→20:34)
[2021-03-14] MEDS: FUROSEMIDE 40 MG/4 ML VIAL IV SCH (08:11)
[2021-03-14] MEDS: INSULIN LISPRO 1 UNIT/0.01 ML UNIT SQ SCH ×4 (08:19→20:33)
[2021-03-14 08:31] LABS: Basophils # (Auto) 0.08 K/mcL (0.00-0.20); Eosinophils # (Auto) 0.32 K/mcL (0.00-0.70); Eosinophils % (Auto) 4.2 % (0.0-7.0); Hematocrit 39.8 % (36.0-48.0); Hemoglobin 13.1 g/dL (12.0-15.0); Lymphocytes # (Auto) 1.45 K/mcL (1.50-4.80); Lymphocytes % (Auto) 18.9 % (15.0-49.0); Mean Corpuscular HGB Conc 32.9 g/dL (31.0-36.0); Monocytes % (Auto) 11.7 % (1.0-12.0); Neutrophils % (Auto) 64.2 % (38.0-78.0); Platelet Count 221 K/mcL (140-440); RBC 4.02 M/mcL (4.00-5.20); Red Cell Distribution Width 13.7 % (11.5-14.5); WBC 7.7 K/mcL (4.5-11.0)
[2021-03-14 08:52] LABS: ALT/SGPT 22 U/L (<40); AST/SGOT 20 U/L (<32); Albumin 4.3 gm/dL (3.2-5.2); Albumin/Globulin Ratio 1.7 (1.0-2.3); Alkaline Phosphatase 92 U/L (39-117); Bilirubin,Direct 0.2 mg/dL (<0.3); Blood Urea Nitrogen 25 mg/dL (8-23); Calcium 9.3 mg/dL (8.6-10.4); Carbon Dioxide 29 mmol/L (22-30); Chloride 97 mmol/L (96-108); Globulin 2.5 gm/dL (2.2-3.7); Glomerular Filtration Rate 51; Glucose 181 mg/dL (70-105); Lactate Dehydrogenase 191 U/L (135-225); Phosphorous 3.1 mg/dL (2.5-4.5); Triglycerides 128 mg/dL (<150); Uric Acid 7.4 mg/dL (2.5-8.0)
[2021-03-14] MEDS ORDERED: ALBUTEROL SULFATE 200 PUFF INHALER INH PRN (09:04)
[2021-03-14] MEDS ORDERED: NITROGLYCERIN 0.4 MG TAB.SUBL SL PRN (09:10)
[2021-03-14] MEDS ORDERED: SODIUM CHLORIDE NASAL 1 SPRAY BOTTLE NAS PRN (09:22)
--- NOTE | 2021-03-14 09:22 | Internal Med Progress Note ---
SUBJECTIVE Subjective Patient information: Note initiated : 03/14/21 at 9:18 am Service Date, if different from initiated Date: [] Patient: Carly Jaime 85 y/o F admitted on 03/13/21 for Shortness of breath. Chief Complaint: [CHF exacerbation and atrial fibrillation] History of present illness: Ms. Jaime is a 85 year old F Presents to ED with shortness of breath that started several hours prior to presenting to the ED. She says she went to bed woke up with shortness of breath. She had some abdominal achy pain no chest pain she says but she says it was a little tight. In the ED she was found to be in A. fib RVR. Troponin was unremarkable. Chest x-ray showed CHF. She was given diltiazem bolus and drip and Lasix with improvement in her symptoms. Heart rate was up to 130s better controlled this point. Vital signs are stable. Laboratory unremarkable except for elevated blood glucose. And proBNP quite elevated. She denies any increased swelling in her legs. Does not remember the last time she had an echocardiogram. She does have a mild cough she feels related to allergies. In the ED she had over 775 cc of urine output after the Lasix 03/14: Negative fluid balance of -2000cc over the past 24 hours as per nurse. On supplemental oxygen up to 2L/min overnight, currently on room air. c/o general body weakness, mild. Denies SOB. Denies chest pain or palpitation. Constitutional Vitals: Vital Signs Temp Pulse Resp BP Pulse Ox 36.5 C 71 20 130/93 97 03/14/21 08:00 03/14/21 08:00 03/14/21 08:00 03/14/21 08:00 03/14/21 08:00 Period Temp Pulse Resp BP Sys/Ho Pulse Ox Last 24 Hr 36.2 C-36.9 C 50-111 14-25 109-176/50-120 93-100 Intake and Output 03/13/21 03/14/21 03/14/21 21:59 05:59 13:59 Intake Total 900 0 300 Output Total 1825 152 127 Balance -925 -152 173 Weight 83.064 kg Intake & Output: Intake & Output 03/13/21 03/14/21 03/14/21 21:59 05:59 13:59 Intake Total 900 0 300 Output Total 1825 152 127 Balance -925 -152 173 Weight 83.064 kg Intake: Oral 900 0 300 Output: Urine Catheter Amount 1300 Void Amount 525 150 125 # of times incontinent of urine 2 2 Other: Meal Dinner Breakfast Percent of Meal Consumed 100% 100% Feeding Ability Assist with Tray Set Up Independent Urine Appearance Clear Clear Clear Urine Color Pale Bright Yellow Bright Yellow Urine Odor Normal Strong General appearance: cooperative and no acute distress Head Head exam: Present atraumatic and normocephalic Eye Eye exam: Present EOMI and PERRL ENT ENT exam: Present mucous membranes moist, normal exam and normal external ear exam Neck Neck exam: Present normal inspection; Absent lymphadenopathy, tenderness and thyromegaly Respiratory Respiratory exam: Absent accessory muscle use, respiratory distress and wheezes Cardiovascular Cardiovascular exam: Present irregular rhythm and systolic murmur; Absent JVD GI/Abdominal GI/Abdominal exam: Present normal bowel sounds and soft; Absent organomegaly and tenderness Extremities Exam Extremities exam: Present full ROM, normal capillary refill, normal inspection and pedal edema; Absent tenderness Neurological Exam Neurological exam: Present alert, CN II-XII intact and oriented X3; Absent motor sensory deficit Psychiatric Psychiatric exam: Present normal affect and normal mood; Absent anxious and depressed Skin Skin exam: Present dry and intact OBJ DATA Labs CBC & Chem 7: 03/14/21 06:15 03/14/21 06:15 Labs: Abnormal Lab Results 03/14/21 03/14/21 03/13/21 06:15 06:15 08:30 RBC MPV 11.0 H Lymph % (Auto) Lymph # (Auto) 1.45 L [place] # (Auto) PT 16.5 H INR 1.3 H BUN 25 H Glucose 181 H NT-Pro-B Natriuret Pep 03/13/21 03/13/21 06:25 06:24 RBC 3.61 L MPV Lymph % (Auto) 12.0 L Lymph # (Auto) 1.21 L [place] # (Auto) 0.93 H PT INR BUN Glucose 225 H NT-Pro-B Natriuret Pep 4235.0 H Meds: Medications Acetaminophen (Acetaminophen 325 Mg Tablet) 650 mg PO Q6HP PRN PRN Reason: PAIN/FEVER > 101 Albuterol Sulfate (Albuterol Sulfate 200 Puff Inhaler) 2 puff INH Q4HP PRN PRN Reason: Shortness Of Breath Albuterol/Ipratropium (Ipratropium/Albuterol 3 Ml Ampul.Neb) 3 ml NEB Q4HP PRN PRN Reason: Shortness Of Breath Aspirin (Aspirin 81 Mg Tab.Chew) 81 mg PO DAILY [facility] Clotrimazole (Clotrimazole Crm 1% 1 Dose Tube) dose TOPICAL BID JAMIN Dextrose (Dextrose 50% 50 Ml Vial) 0 ml IV UD PRN PRN Reason: Hypoglycemia Diagnostic Test (Pha) (Accu-Chek 1 Each Strip) 1 each [facility] Last Admin: 03/14/21 07:45 Dose: 1 each Documented by: Docusate Sodium (Docusate Sodium 100 Mg Capsule) 100 mg PO BID [facility] Last Admin: 03/13/21 20:09 Dose: 100 mg Documented by: Enoxaparin Sodium (Enoxaparin 80 Mg/0.8 Ml Syringe) 80 mg SQ BID [facility] Last Admin: 03/14/21 01:05 Dose: 80 mg Documented by: Fish Oil (Fish Oil 1,000 Mg Capsule) 1,000 mg PO DAILY [facility] Fluticasone Propionate (Fluticasone Propionate Burney.Merlin) 2 spray NS HS [facility] Furosemide (Furosemide 40 Mg Tablet) 80 mg PO QAM [facility] Glucose (Dextrose 31 Gm Oral.Susp) 15 gm PO PRN PRN PRN Reason: Hypoglycemia Potassium Chloride 40 meq/ (Dextrose) 520 mls @ 130 mls/hr IV UD PRN PRN Reason: Potassium < 3 Magnesium Sulfate (Magnesium Sulfate) 2 gm in 50 mls @ 50 mls/hr IV UD PRN PRN Reason: Magnesium </= 1.6 Insulin Glargine (Insulin Glargine, Human 1 Unit/0.01 Ml) 10 unit SQ [facility] Last Admin: 03/13/21 20:10 Dose: 10 unit Documented by: Insulin Human Lispro (Insulin Lispro 1 Unit/0.01 Ml Unit) 0 unit SQ [facility]; Protocol Last Admin: 03/14/21 08:19 Dose: 4 unit Documented by: Iron Carb/Multivit/City [employer]r/Folic Acid (Multivit,Ther Iron,Ca,Fa & Min 1 Tablet) 1 tab PO DAILY [facility] Lactulose (Lactulose 20 Gm/30 Ml Oral.Callie) 20 gm PO DAILYP PRN PRN Reason: Constipation Lisinopril (Lisinopril 20 Mg Tablet) 20 mg PO DAILY [facility] Lorazepam (Lorazepam 0.5 Mg Tablet) 0.5 mg PO DAILYP PRN PRN Reason: Anxiety Metoprolol Tartrate (Metoprolol Tartrate 5 Mg/5 Ml Vial) 5 mg IV Q2HP PRN PRN Reason: Tachyarrhythmias HR>110 Metoprolol Tartrate (Metoprolol Tartrate 25 Mg Tablet) 25 mg PO BID [facility] Last Admin: 03/13/21 20:09 Dose: 25 mg Documented by: Nitroglycerin (Nitroglycerin 0.4 Mg Tab.Subl) 0.4 mg SL Q5M PRN PRN Reason: Chest Pain Non-Formulary Medication (Sodium Chloride [[place] Allergy And Sinus]) 1 % INTRANASAL Q1H PRN PRN Reason: Congestion Non-Formulary Medication (Diclofenac Sodium) 2 g .ROUTE .COMPLEX PRN PRN Reason: pain Ondansetron HCl (Ondansetron 4 Mg/2 Ml Vial) 4 mg IV Q4HP PRN PRN Reason: Nausea And Vomiting Potassium Chloride (Potassium Chloride 20 Meq Tablet) 40 meq PO UD PRN PRN Reason: Potssium is 3-3.5 Potassium Chloride (Potassium Chloride 20 Meq Tablet) 40 meq PO UD PRN PRN Reason: Potassium < 3 Prazosin HCl (Prazosin 1 Mg Capsule) 2 mg PO BID [facility] Senna (Sennosides 1 Tablet) 2 tab PO DAILYP PRN PRN Reason: Constipation Simvastatin (Simvastatin 40 Mg Tablet) 20 mg PO QDAY [facility] Sodium Chloride (0.9 % Sodium Chloride 10 Ml Syringe) 10 ml IV Q8 [facility] Last Admin: 03/14/21 05:04 Dose: 10 ml Documented by: Spironolactone (Spironolactone 25 Mg Tablet) 25 mg PO QDAY [facility] Vitamin D (Vitamin D3 1,000 Unit Tablet) 1,000 unit PO QDAY [facility] Warfarin Sodium (Warfarin 5 Mg Tablet) 5 mg PO DAILY [facility] A/P Assessment and plan (1) Diabetes mellitus, type II: Status: Chronic (2) Chronic diastolic heart failure: Status: Chronic (3) Atrial fibrillation: Status: Chronic Narrative A/P Narrative: 1. CHF exacerbation: Stays in inpatient PCU Supplemental oxygen as needed titrate to achieve spo2 >=92% 2D echocardiogram performed, results pending Strict intake and output Daily weigh 2L fluid restriction Metoprolol tartrate Lasix-->transition from 40mg IV BID to 80mg PO daily Resume Aldactone Resume Lisinopril 2. Atrial fibrillation: Continue Metoprolol tartrate PO for rate control Warfarin with daily INR for dose adjustment. Goal INR 2-3 Lovenox bridging 3. T2DM: HgA1c Insulin Lantus 10 unit HS for better glycemic control Correctional scale insulin AC HS Accu Chek Ac HS Hypoglycemia protocol Diabetic diet 4. h/o CAD: Continue Aspirin Continue statin Continue Metoprolol tartrate Time Spent With Patient Time: Total time spent is greater than 50% in coordination of care (as documented) at patient's floor/unit and/or counseling patient: Total time spent with greater than 50% in coordination of care (as documented) at patient's floor/unit and/or counseling patient:: 15 - 24 minutes QUALITY VTE Deep Vein Thrombosis/Pulmonary Embolism Present on Admission: No
[2021-03-14 09:34] LABS: POC INR 1.4 (0.8-1.2); POC Pro Time 16.4 sec (11.9-14.5)
[2021-03-14] MEDS: DOCUSATE SODIUM 100 MG CAPSULE PO SCH ×2 (09:49→20:17)
[2021-03-14] MEDS: METOPROLOL TARTRATE 25 MG TABLET PO SCH ×2 (09:50→20:32)
[2021-03-14] MEDS ORDERED: Diclofenac Sodium 1 % gel TOPICAL PRN (10:14)
[2021-03-14] MEDS ORDERED: WARFARIN 5 MG TABLET PO ONE (14:00)
[2021-03-14] MEDS: FLUTICASONE PROPIONATE SPRAY.NAS NS SCH (20:23)
[2021-03-14] MEDS: PRAZOSIN 1 MG CAPSULE PO SCH (20:32)
[2021-03-14] MEDS: INSULIN GLARGINE, HUMAN 1 UNIT/0.01 ML SQ SCH (20:33)
[2021-03-14] MEDS: CLOTRIMAZOLE CRM 1% 1 DOSE TUBE TOPICAL SCH (20:34)
[2021-03-15] MEDS: LORazepam 0.5 MG TABLET PO PRN ×2 (00:27→22:03)
[2021-03-15] MEDS: ACETAMINOPHEN 325 MG TABLET PO PRN ×2 (00:27→13:04)
[2021-03-15] MEDS: 0.9 % SODIUM CHLORIDE 10 ML SYRINGE IV SCH ×3 (05:19→20:08)
[2021-03-15 07:28] LABS: Basophils # (Auto) 0.07 K/mcL (0.00-0.20); Eosinophils % (Auto) 2.9 % (0.0-7.0); Hematocrit 37.1 % (36.0-48.0); Hemoglobin 12.4 g/dL (12.0-15.0); Lymphocytes # (Auto) 1.38 K/mcL (1.50-4.80); Lymphocytes % (Auto) 20.4 % (15.0-49.0); Mean Cell Volume 98.7 fL (80.0-100.0); Mean Corpuscular HGB Conc 33.4 g/dL (31.0-36.0); Mean Platelet Volume 10.7 fL (7.4-10.4); Monocytes # (Auto) 0.77 K/mcL (0.10-0.90); Monocytes % (Auto) 11.4 % (1.0-12.0); Neutrophils % (Auto) 64.3 % (38.0-78.0); Platelet Count 197 K/mcL (140-440); RBC 3.76 M/mcL (4.00-5.20); Red Cell Distribution Width 13.5 % (11.5-14.5); WBC 6.8 K/mcL (4.5-11.0)
[2021-03-15 07:45] LABS: INR 1.2 (0.9-1.1)
[2021-03-15] MEDS: INSULIN LISPRO 1 UNIT/0.01 ML UNIT SQ SCH ×4 (07:59→20:07)
[2021-03-15] MEDS: PRAZOSIN 1 MG CAPSULE PO SCH ×2 (08:23→20:03)
[2021-03-15] MEDS: SPIRONOLACTONE 25 MG TABLET PO SCH (08:23)
[2021-03-15 08:27] LABS: ALT/SGPT 15 U/L (<40); AST/SGOT 15 U/L (<32); Albumin 3.7 gm/dL (3.2-5.2); Albumin/Globulin Ratio 1.4 (1.0-2.3); Alkaline Phosphatase 79 U/L (39-117); Bilirubin,Total 0.7 mg/dL (0.1-1.0); Blood Urea Nitrogen 29 mg/dL (8-23); Carbon Dioxide 29 mmol/L (22-30); Chloride 98 mmol/L (96-108); Globulin 2.7 gm/dL (2.2-3.7); Glomerular Filtration Rate 51; Glucose 180 mg/dL (70-105)
--- NOTE | 2021-03-15 08:36 | Internal Med Progress Note ---
SUBJECTIVE Subjective Patient information: Note initiated : 03/15/21 at 8:30 am Service Date, if different from initiated Date: [] Patient: Carly Jaime 85 y/o F admitted on 03/13/21 for Shortness of breath. Chief Complaint: [CHF exacerbation] History of present illness: Ms. Jaime is a 85 year old F Presents to ED with shortness of breath that started several hours prior to presenting to the ED. She says she went to bed woke up with shortness of breath. She had some abdominal achy pain no chest pain she says but she says it was a little tight. In the ED she was found to be in A. fib RVR. Troponin was unremarkable. Chest x-ray showed CHF. She was given diltiazem bolus and drip and Lasix with improvement in her symptoms. Heart rate was up to 130s better controlled this point. Vital signs are stable. Laboratory unremarkable except for elevated blood glucose. And proBNP quite elevated. She denies any increased swelling in her legs. Does not remember the last time she had an echocardiogram. She does have a mild cough she feels related to allergies. In the ED she had over 775 cc of urine output after the Lasix 03/14: Negative fluid balance of -2000cc over the past 24 hours as per nurse. On supplemental oxygen up to 2L/min overnight, currently on room air. c/o general body weakness, mild. Denies SOB. Denies chest pain or palpitation. 03/15: On between 0-2L/min oxygen overnight. Soft blood pressure as low as 80s/50s mmHg overnight. Currently denies any SOB or general body weakness or dizziness/lightheadedness. Constitutional Vitals: Vital Signs Temp Pulse Resp BP Pulse Ox 36.1 C L 71 20 129/92 94 03/15/21 08:02 03/14/21 08:00 03/15/21 08:02 03/15/21 08:02 03/15/21 08:02 Period Temp Pulse Resp BP Sys/Ho Pulse Ox Last 24 Hr 36.1 C-36.6 C 14-24 69-133/37-107 88-98 Intake and Output 03/14/21 03/15/21 03/15/21 21:59 05:59 13:59 Intake Total 0 360 Output Total 645 202 Balance -645 158 Weight 82.599 kg Intake & Output: Intake & Output 03/14/21 03/15/21 03/15/21 21:59 05:59 13:59 Intake Total 0 360 Output Total 645 202 Balance -645 158 Weight 82.599 kg Intake: IV 0 Cardizem 125 mg In Dextrose 5% 0 in Water 100 ml @ 5 MG/HR 5 mls /hr IV Q12H JAMIN Rx#:[id number] Oral 360 Output: Void Amount 645 200 # of times incontinent of urine 2 Other: Urine Appearance Clear Urine Color Bright Yellow Bright Yellow Urine Odor Strong Stool Size Smear Stool Color Brown Stool Consistency Soft General appearance: cooperative and no acute distress Head Head exam: Present atraumatic and normocephalic Eye Eye exam: Present EOMI and PERRL ENT ENT exam: Present mucous membranes moist, normal exam and normal external ear exam Neck Neck exam: Present normal inspection; Absent lymphadenopathy, tenderness and thyromegaly Respiratory Respiratory exam: Absent accessory muscle use, respiratory distress and wheezes Cardiovascular Cardiovascular exam: Present irregular rhythm and systolic murmur; Absent JVD GI/Abdominal GI/Abdominal exam: Present normal bowel sounds and soft; Absent organomegaly and tenderness Extremities Exam Extremities exam: Present full ROM, normal capillary refill, normal inspection and pedal edema; Absent tenderness Neurological Exam Neurological exam: Present alert, CN II-XII intact and oriented X3; Absent motor sensory deficit Psychiatric Psychiatric exam: Present normal affect and normal mood; Absent anxious and depressed Skin Skin exam: Present dry and intact OBJ DATA Labs CBC & Chem 7: 03/15/21 05:05 03/15/21 05:05 Labs: Abnormal Lab Results 03/15/21 03/15/21 03/15/21 05:05 05:05 05:05 RBC 3.76 L MPV 10.7 H Lymph % (Auto) Lymph # (Auto) 1.38 L Dent # (Auto) POC PT PT 16.0 H POC INR INR 1.2 H BUN 29 H Glucose 180 H NT-Pro-B Natriuret Pep 03/14/21 03/14/21 03/14/21 09:27 06:15 06:15 RBC MPV 11.0 H Lymph % (Auto) Lymph # (Auto) 1.45 L Dent # (Auto) POC PT 16.4 H PT POC INR 1.4 H INR BUN 25 H Glucose 181 H NT-Pro-B Natriuret Pep 03/13/21 03/13/21 03/13/21 08:30 06:25 06:24 RBC 3.61 L MPV Lymph % (Auto) 12.0 L Lymph # (Auto) 1.21 L Dent # (Auto) 0.93 H POC PT PT 16.5 H POC INR INR 1.3 H BUN Glucose 225 H NT-Pro-B Natriuret Pep 4235.0 H Meds: Medications Acetaminophen (Acetaminophen 325 Mg Tablet) 650 mg PO Q6HP PRN PRN Reason: PAIN/FEVER > 101 Last Admin: 03/15/21 00:27 Dose: 650 mg Documented by: Albuterol Sulfate (Albuterol Sulfate 200 Puff Inhaler) 2 puff INH Q4HP PRN PRN Reason: Shortness Of Breath Albuterol/Ipratropium (Ipratropium/Albuterol 3 Ml Ampul.Neb) 3 ml NEB Q4HP PRN PRN Reason: Shortness Of Breath Aspirin (Aspirin 81 Mg Tab.Chew) 81 mg PO DAILY [facility] Clotrimazole (Clotrimazole Crm 1% 1 Dose Tube) 1 dose TOPICAL BID [facility] Last Admin: 03/14/21 20:34 Dose: Not Given Documented by: Dextrose (Dextrose 50% 50 Ml Vial) 0 ml IV UD PRN PRN Reason: Hypoglycemia Diagnostic Test (Pha) (Accu-Chek 1 Each Strip) 1 each FS ACHS [facility] Last Admin: 03/15/21 07:56 Dose: 1 each Documented by: Docusate Sodium (Docusate Sodium 100 Mg Capsule) 100 mg PO BID [facility] Last Admin: 03/14/21 20:17 Dose: Not Given Documented by: Enoxaparin Sodium (Enoxaparin 80 Mg/0.8 Ml Syringe) 80 mg SQ BID [facility] Last Admin: 03/14/21 20:33 Dose: 80 mg Documented by: Fish Oil (Fish Oil 1,000 Mg Capsule) 1,000 mg PO DAILY [facility] Fluticasone Propionate (Fluticasone Propionate [place]) 2 spray NS HS [facility] Last Admin: 03/14/21 20:23 Dose: Not Given Documented by: Furosemide (Furosemide 40 Mg Tablet) 80 mg PO QAM [facility] Glucose (Dextrose 31 Gm Oral.Susp) 15 gm PO PRN PRN PRN Reason: Hypoglycemia Potassium Chloride 40 meq/ (Dextrose) 520 mls @ 130 mls/hr IV UD PRN PRN Reason: Potassium < 3 Magnesium Sulfate (Magnesium Sulfate) 2 gm in 50 mls @ 50 mls/hr IV UD PRN PRN Reason: Magnesium </= 1.6 Insulin Glargine (Insulin Glargine, Human 1 Unit/0.01 Ml) 10 unit SQ HS [facility] Last Admin: 03/14/21 20:33 Dose: 10 unit Documented by: Insulin Human Lispro (Insulin Lispro 1 Unit/0.01 Ml Unit) 0 unit SQ ACHS [facility]; Protocol Last Admin: 03/15/21 07:59 Dose: 2 unit Documented by: Iron Carb/Multivit/[place]/Folic Acid (Multivit,Ther Iron,Ca,Fa & Min 1 Tablet) 1 tab PO DAILY [facility] Lactulose (Lactulose 20 Gm/30 Ml Oral.Callie) 20 gm PO DAILYP PRN PRN Reason: Constipation Lisinopril (Lisinopril 20 Mg Tablet) 2.5 mg PO DAILY [facility] Lorazepam (Lorazepam 0.5 Mg Tablet) 0.5 mg PO DAILYP PRN PRN Reason: Anxiety Last Admin: 03/15/21 00:27 Dose: 0.5 mg Documented by: Metoprolol Tartrate (Metoprolol Tartrate 5 Mg/5 Ml Vial) 5 mg IV Q2HP PRN PRN Reason: Tachyarrhythmias HR>110 Metoprolol Tartrate (Metoprolol Tartrate 25 Mg Tablet) 25 mg PO BID [facility] Last Admin: 03/14/21 20:32 Dose: 25 mg Documented by: Nitroglycerin (Nitroglycerin 0.4 Mg Tab.Subl) 0.4 mg SL Q5M PRN PRN Reason: Chest Pain Ondansetron HCl (Ondansetron 4 Mg/2 Ml Vial) 4 mg IV Q4HP PRN PRN Reason: Nausea And Vomiting Diclofenac Sodium 1 (% Gel) 1 dose TOPICAL TIDP PRN PRN Reason: Pain Potassium Chloride (Potassium Chloride 20 Meq Tablet) 40 meq PO UD PRN PRN Reason: Potssium is 3-3.5 Potassium Chloride (Potassium Chloride 20 Meq Tablet) 40 meq PO UD PRN PRN Reason: Potassium < 3 Prazosin HCl (Prazosin 1 Mg Capsule) 2 mg PO BID [facility] Last Admin: 03/15/21 08:23 Dose: Not Given Documented by: Senna (Sennosides 1 Tablet) 2 tab PO DAILYP PRN PRN Reason: Constipation Simvastatin (Simvastatin 40 Mg Tablet) 20 mg PO QDAY [facility] Sodium Chloride (0.9 % Sodium Chloride 10 Ml Syringe) 10 ml IV Q8 [facility] Last Admin: 03/15/21 05:19 Dose: 10 ml Documented by: Sodium Chloride (Sodium Chloride Nasal 1 [place] Bottle) 1 spray DAWSON Q1HP PRN PRN Reason: Congestion Spironolactone (Spironolactone 25 Mg Tablet) 25 mg PO QDAY [facility] Last Admin: 03/15/21 08:23 Dose: Not Given Documented by: Trazodone HCl (Trazodone Hcl 50 Mg Tablet) 50 mg PO HSP PRN PRN Reason: Insomnia Vitamin D (Vitamin D3 1,000 Unit Tablet) 1,000 unit PO QDAY [facility] Warfarin Sodium (Warfarin Per Pharmacy) 1 order PO UD [facility] Warfarin Sodium (Warfarin 5 Mg Tablet) 5 mg PO ONCE@1400 ONE Stop: 03/15/21 14:01 A/P Assessment and plan (1) Diabetes mellitus, type II: Status: Chronic (2) Chronic diastolic heart failure: Status: Chronic (3) Atrial fibrillation: Status: Chronic Narrative A/P Narrative: 1. CHF exacerbation: Stays in inpatient PCU Supplemental oxygen as needed titrate to achieve spo2 >=92% 2D echocardiogram performed-->systolic dysfunction with LVEF 25-30%, with moderate aortic stenosis and mild to moderate aortic regurgitation Strict intake and output Daily weigh 2L fluid restriction Metoprolol tartrate Lasix 80mg PO daily Hold Aldactone today given soft blood pressure overnight Hold Lisinopril today given soft blood pressure overnight , Lisinopril 20-->2.5mg PO daily starting tomorrow 2. Atrial fibrillation: Continue Metoprolol tartrate PO for rate control Warfarin with daily INR for dose adjustment. Goal INR 2-3 Lovenox bridging 3. T2DM: HgA1c Insulin Lantus 10 unit HS Correctional scale insulin AC HS Accu Chek Ac HS Hypoglycemia protocol Diabetic diet 4. h/o CAD: Continue Aspirin Continue statin Continue Metoprolol tartrate Time Spent With Patient Time: Total time spent is greater than 50% in coordination of care (as documente d) at patient's floor/unit and/or counseling patient: QUALITY VTE Deep Vein Thrombosis/Pulmonary Embolism Present on Admission: No
[2021-03-15] MEDS ORDERED: LISINOPRIL 20 MG TABLET PO SCH (09:00)
[2021-03-15] MEDS ORDERED: FLAXSEED 1000 MG PO SCH (09:00)
[2021-03-15] MEDS: MULTIVIT,THER IRON,CA,FA & MIN 1 TABLET PO SCH (09:02)
[2021-03-15] MEDS: ENOXAPARIN 80 MG/0.8 ML SYRINGE SQ SCH ×2 (09:02→20:07)
[2021-03-15] MEDS: METOPROLOL TARTRATE 25 MG TABLET PO SCH ×2 (09:03→20:07)
[2021-03-15] MEDS: FUROSEMIDE 40 MG TABLET PO SCH (09:03)
[2021-03-15] MEDS: DOCUSATE SODIUM 100 MG CAPSULE PO SCH ×2 (09:03→20:03)
[2021-03-15] MEDS: ASPIRIN 81 MG TAB.CHEW PO SCH (09:03)
[2021-03-15] MEDS: CLOTRIMAZOLE CRM 1% 1 DOSE TUBE TOPICAL SCH ×2 (09:04→20:03)
[2021-03-15] MEDS: LISINOPRIL 2.5 MG TABLET PO SCH (09:06)
[2021-03-15] MEDS: VITAMIN D3 1,000 UNIT TABLET PO SCH (09:15)
[2021-03-15] MEDS: FISH OIL 1,000 MG CAPSULE PO SCH (09:15)
[2021-03-15] MEDS: SIMVASTATIN 40 MG TABLET PO SCH (09:15)
[2021-03-15] MEDS ORDERED: WARFARIN 5 MG TABLET PO ONE (14:00)
[2021-03-15] MEDS: FLUTICASONE PROPIONATE SPRAY.NAS NS SCH (20:03)
[2021-03-15] MEDS: INSULIN GLARGINE, HUMAN 1 UNIT/0.01 ML SQ SCH (20:08)
[2021-03-15] MEDS ORDERED: traZODone HCL 50 MG TABLET PO PRN (21:00)
[2021-03-16] MEDS: ACETAMINOPHEN 325 MG TABLET PO PRN (02:18)
[2021-03-16] MEDS: 0.9 % SODIUM CHLORIDE 10 ML SYRINGE IV SCH (05:46)
[2021-03-16 07:44] LABS: INR 1.2 (0.9-1.1); Prothrombin Time 15.7 sec (11.9-14.5)
[2021-03-16 08:03] LABS: ALT/SGPT 18 U/L (<40); AST/SGOT 15 U/L (<32); Albumin 4.1 gm/dL (3.2-5.2); Albumin/Globulin Ratio 1.5 (1.0-2.3); Alkaline Phosphatase 89 U/L (39-117); Bilirubin,Total 0.5 mg/dL (0.1-1.0); Blood Urea Nitrogen 34 mg/dL (8-23); Calcium 9.1 mg/dL (8.6-10.4); Carbon Dioxide 29 mmol/L (22-30); Chloride 98 mmol/L (96-108); Globulin 2.7 gm/dL (2.2-3.7); Glomerular Filtration Rate 45; Glucose 138 mg/dL (70-105)
[2021-03-16 08:06] LABS: Basophils # (Auto) 0.08 K/mcL (0.00-0.20); Basophils % (Auto) 1.3 % (0.0-2.0); Eosinophils # (Auto) 0.39 K/mcL (0.00-0.70); Eosinophils % (Auto) 6.5 % (0.0-7.0); Hematocrit 40.7 % (36.0-48.0); Hemoglobin 13.3 g/dL (12.0-15.0); Lymphocytes # (Auto) 1.92 K/mcL (1.50-4.80); Lymphocytes % (Auto) 31.9 % (15.0-49.0); Mean Cell Volume 100.2 fL (80.0-100.0); Mean Corpuscular HGB Conc 32.7 g/dL (31.0-36.0); Mean Platelet Volume 10.7 fL (7.4-10.4); Monocytes # (Auto) 0.93 K/mcL (0.10-0.90); Monocytes % (Auto) 15.4 % (1.0-12.0); Neutrophils % (Auto) 44.9 % (38.0-78.0); Platelet Count 213 K/mcL (140-440); RBC 4.06 M/mcL (4.00-5.20); Red Cell Distribution Width 13.5 % (11.5-14.5)
--- NOTE | 2021-03-16 08:18 | Internal Med Progress Note ---
SUBJECTIVE Subjective Patient information: Note initiated : 03/16/21 at 8:12 am Service Date, if different from initiated Date: [] Patient: Carly Jaime 85 y/o F admitted on 03/13/21 for Shortness of breath. Chief Complaint: [CHF exacerbation] [facility]ime [address]OB[address] 1935 [address]Service Date:03/13/21 Admit Date: 03/13/21 [place], [place] [address]Wruvzr # [id number] Shane Krishnamurthy M.D. MR #: [id number] Internal Med Progress NoteSigned SUBJECTIVE Subjective Patient information: Note initiated : 03/15/21 at 8:30 am Service Date, if different from initiated Date: [] Patient: Carly Jaime 85 y/o F admitted on 03/13/21 for Shortness of breath. Chief Complaint: [CHF exacerbation] History of present illness: Ms. Jaime is a 85 year old F Presents to ED with shortness of breath that started several hours prior to presenting to the ED. She says she went to bed woke up with shortness of breath. She had some abdominal achy pain no chest pain she says but she says it was a little tight. In the ED she was found to be in A. fib RVR. Troponin was unremarkable. Chest x-ray showed CHF. She was given diltiazem bolus and drip and Lasix with improvement in her symptoms. Heart rate was up to 130s better controlled this point. Vital signs are stable. Laboratory unremarkable except for elevated blood glucose. And proBNP quite elevated. She denies any increased swelling in her legs. Does not remember the last time she had an echocardiogram. She does have a mild cough she feels related to allergies. In the ED she had over 775 cc of urine output after the Lasix 03/14: Negative fluid balance of -2000cc over the past 24 hours as per nurse. On supplemental oxygen up to 2L/min overnight, currently on room air. c/o general body weakness, mild. Denies SOB. Denies chest pain or palpitation. 03/15: On between 0-2L/min oxygen overnight. Soft blood pressure as low as 80s/50s mmHg overnight. Currently denies any SOB or general body weakness or dizziness/lightheadedness. 5/2: Been on room air overnight. Lowest blood pressure was 90s/70s overnight. INR still subtherapeutic at 1.2 this morning. Currently denies any SOB or general body weakness or dizziness/lightheadedness. Constitutional Vitals: Vital Signs Temp Pulse Resp BP Pulse Ox 36.6 C 71 16 150/85 97 03/16/21 04:01 03/14/21 08:00 03/16/21 06:01 03/16/21 06:01 03/16/21 06:42 Period Temp Pulse Resp BP Sys/Ho Pulse Ox Last 24 Hr 36.1 C-36.6 C 16-20 92-150/63-89 93-100 Intake and Output 03/15/21 03/16/21 03/16/21 21:59 05:59 13:59 Intake Total 300 Output Total 200 152 Balance 100 -152 Weight 82.582 kg Intake & Output: Intake & Output 03/15/21 03/16/21 03/16/21 21:59 05:59 13:59 Intake Total 300 Output Total 200 152 Balance 100 -152 Weight 82.582 kg Intake: Oral 300 Output: Void Amount 200 150 # of times incontinent of urine 2 Other: Meal Dinner Percent of Meal Consumed 100% Feeding Ability Independent Urine Appearance Clear Clear Urine Color Bright Yellow Bright Yellow Urine Odor Normal Stool Size Moderate Stool Color Brown Stool Consistency Soft Formed Loose # Bowel Movements 1 General appearance: cooperative and no acute distress Head Head exam: Present atraumatic and normocephalic Eye Eye exam: Present EOMI and PERRL ENT ENT exam: Present mucous membranes moist, normal exam and normal external ear exam Neck Neck exam: Present normal inspection; Absent lymphadenopathy, tenderness and thyromegaly Respiratory Respiratory exam: Absent accessory muscle use, respiratory distress and wheezes Cardiovascular Cardiovascular exam: Present normal rate and rhythm and irregular rhythm; Absent JVD GI/Abdominal GI/Abdominal exam: Present normal bowel sounds and soft; Absent organomegaly and tenderness Extremities Exam Extremities exam: Present full ROM, normal capillary refill and normal inspection; Absent tenderness Neurological Exam Neurological exam: Present alert, CN II-XII intact and oriented X3; Absent motor sensory deficit Psychiatric Psychiatric exam: Present normal affect and normal mood; Absent anxious and depressed Skin Skin exam: Present dry and intact OBJ DATA Labs CBC & Chem 7: 03/16/21 04:58 03/16/21 04:58 Labs: Abnormal Lab Results 03/16/21 03/16/21 03/16/21 04:58 04:58 04:58 RBC MCV 100.2 H MPV 10.7 H [place]pp % (Auto) 15.4 H Lymph # (Auto) [place] # (Auto) 0.93 H POC PT PT 15.7 H POC INR INR 1.2 H BUN 34 H Glucose 138 H 03/15/21 03/15/21 03/15/21 05:05 05:05 05:05 RBC 3.76 L MCV MPV 10.7 H [place]pp % (Auto) Lymph # (Auto) 1.38 L [place] # (Auto) POC PT PT 16.0 H POC INR INR 1.2 H BUN 29 H Glucose 180 H 03/14/21 03/14/21 03/14/21 09:27 06:15 06:15 RBC MCV MPV 11.0 H [place]pp % (Auto) Lymph # (Auto) 1.45 L [place] # (Auto) POC PT 16.4 H PT POC INR 1.4 H INR BUN 25 H Glucose 181 H 03/13/21 08:30 RBC MCV MPV [place] % (Auto) Lymph # (Auto) Tripp # (Auto) POC PT PT 16.5 H POC INR INR 1.3 H BUN Glucose Meds: Medications Acetaminophen (Acetaminophen 325 Mg Tablet) 650 mg PO Q6HP PRN PRN Reason: PAIN/FEVER > 101 Last Admin: 03/16/21 02:18 Dose: 650 mg Documented by: Albuterol Sulfate (Albuterol Sulfate 200 Puff Inhaler) 2 puff INH Q4HP PRN PRN Reason: Shortness Of Breath Albuterol/Ipratropium (Ipratropium/Albuterol 3 Ml Ampul.Neb) 3 ml NEB Q4HP PRN PRN Reason: Shortness Of Breath Aspirin (Aspirin 81 Mg Tab.Chew) 81 mg PO DAILY [facility] Last Admin: 03/15/21 09:03 Dose: 81 mg Documented by: Clotrimazole (Clotrimazole Crm 1% 1 Dose Tube) 1 dose TOPICAL BID [facility] Last Admin: 03/15/21 20:03 Dose: Not Given Documented by: Dextrose (Dextrose 50% 50 Ml Vial) 0 ml IV UD PRN PRN Reason: Hypoglycemia Diagnostic Test (Pha) (Accu-Chek 1 Each Strip) 1 each FS [facility] Last Admin: 03/16/21 08:08 Dose: 1 each Documented by: Docusate Sodium (Docusate Sodium 100 Mg Capsule) 100 mg PO BID [facility] Last Admin: 03/15/21 20:03 Dose: Not Given Documented by: Enoxaparin Sodium (Enoxaparin 80 Mg/0.8 Ml Syringe) 80 mg SQ BID [facility] Last Admin: 03/15/21 20:07 Dose: 80 mg Documented by: Fish Oil (Fish Oil 1,000 Mg Capsule) 1,000 mg PO DAILY [facility] Last Admin: 03/15/21 09:15 Dose: 1,000 mg Documented by: Fluticasone Propionate (Fluticasone Propionate [place]) 2 spray NS [facility] Last Admin: 03/15/21 20:03 Dose: Not Given Documented by: Furosemide (Furosemide 40 Mg Tablet) [facility] Last Admin: 03/15/21 09:03 Dose: 80 mg Documented by: Glucose (Dextrose 31 Gm Oral.Susp) 15 gm PO PRN PRN PRN Reason: Hypoglycemia Potassium Chloride 40 meq/ (Dextrose) 520 mls @ 130 mls/hr IV UD PRN PRN Reason: Potassium < 3 Magnesium Sulfate (Magnesium Sulfate) 2 gm in 50 mls @ 50 mls/hr IV UD PRN PRN Reason: Magnesium </= 1.6 Insulin Glargine (Insulin Glargine, Human 1 Unit/0.01 Ml) 10 unit SQ [facility] Last Admin: 03/15/21 20:08 Dose: 10 unit Documented by: Insulin Human Lispro (Insulin Lispro 1 Unit/0.01 Ml Unit) 0 unit SQ [facility]; Protocol Last Admin: 03/15/21 20:07 Dose: 6 unit Documented by: Iron Carb/Multivit/[place]/Folic Acid (Multivit,Ther Iron,Ca,Fa & Min 1 Tablet) 1 tab PO DAILY [facility] Last Admin: 03/15/21 09:02 Dose: 1 tab Documented by: Lactulose (Lactulose 20 Gm/30 Ml Oral.Callie) 20 gm PO DAILYP PRN PRN Reason: Constipation Lisinopril (Lisinopril 2.5 Mg Tablet) 2.5 mg PO DAILY [facility] Last Admin: 03/15/21 09:06 Dose: Not Given Documented by: Lorazepam (Lorazepam 0.5 Mg Tablet) 0.5 mg PO DAILYP PRN PRN Reason: Anxiety Last Admin: 03/15/21 22:03 Dose: 0.5 mg Documented by: Metoprolol Tartrate (Metoprolol Tartrate 5 Mg/5 Ml Vial) 5 mg IV Q2HP PRN PRN Reason: Tachyarrhythmias HR>110 Metoprolol Tartrate (Metoprolol Tartrate 25 Mg Tablet) 25 mg PO BID [facility] Last Admin: 03/15/21 20:07 Dose: 25 mg Documented by: Nitroglycerin (Nitroglycerin 0.4 Mg Tab.Subl) 0.4 mg SL Q5M PRN PRN Reason: Chest Pain Ondansetron HCl (Ondansetron 4 Mg/2 Ml Vial) 4 mg IV Q4HP PRN PRN Reason: Nausea And Vomiting Diclofenac Sodium 1 (% Gel) 1 dose TOPICAL TIDP PRN PRN Reason: Pain Potassium Chloride (Potassium Chloride 20 Meq Tablet) 40 meq PO UD PRN PRN Reason: Potssium is 3-3.5 Potassium Chloride (Potassium Chloride 20 Meq Tablet) 40 meq PO UD PRN PRN Reason: Potassium < 3 Prazosin HCl (Prazosin 1 Mg Capsule) 2 mg PO BID [facility] Last Admin: 03/15/21 20:03 Dose: Not Given Documented by: Senna (Sennosides 1 Tablet) 2 tab PO DAILYP PRN PRN Reason: Constipation Simvastatin (Simvastatin 40 Mg Tablet) 20 mg PO QDAY [facility] Last Admin: 03/15/21 09:15 Dose: 20 mg Documented by: Sodium Chloride (0.9 % Sodium Chloride 10 Ml Syringe) 10 ml IV Q8 [facility] Last Admin: 03/16/21 05:46 Dose: 10 ml Documented by: Sodium Chloride (Sodium Chloride Nasal 1 [place] Bottle) 1 spray DAWSON Q1HP PRN PRN Reason: Congestion Spironolactone (Spironolactone 25 Mg Tablet) 25 mg PO QDAY [facility] Last Admin: 03/15/21 08:23 Dose: Not Given Documented by: Trazodone HCl (Trazodone Hcl 50 Mg Tablet) 50 mg PO HSP PRN PRN Reason: Insomnia Vitamin D (Vitamin D3 1,000 Unit Tablet) 1,000 unit PO QDAY [facility] Last Admin: 03/15/21 09:15 Dose: 1,000 unit Documented by: Warfarin Sodium (Warfarin Per Pharmacy) 1 order PO UD [facility] A/P Assessment and plan (1) Diabetes mellitus, type II: Status: Chronic (2) Chronic diastolic heart failure: Status: Chronic (3) Atrial fibrillation: Status: Chronic Narrative A/P Narrative: 1. CHF exacerbation: Stays in inpatient PCU Supplemental oxygen as needed titrate to achieve spo2 >=92% 2D echocardiogram performed-->systolic dysfunction with LVEF 25-30%, with moderate aortic stenosis and mild to moderate aortic regurgitation Strict intake and output Daily weigh 2L fluid restriction Metoprolol tartrate 25mg PO BID Lasix 80mg PO daily Resume Aldactone 25mg PO daily Lisinopril 2.5mg PO daily 2. Atrial fibrillation: Continue Metoprolol tartrate 25mg PO BID for rate control Warfarin with daily INR for dose adjustment. Goal INR 2-3 Lovenox bridging 3. T2DM: HgA1c Insulin Lantus 10 unit HS Correctional scale insulin AC HS Accu Chek Ac HS Hypoglycemia protocol Diabetic diet 4. h/o CAD: Continue Aspirin Continue statin Continue Metoprolol tartrate 25mg PO BID Time Spent With Patient Time: Total time spent is greater than 50% in coordination of care (as do cumented) at patient's floor/unit and/or counseling patient: QUALITY VTE Deep Vein Thrombosis/Pulmonary Embolism Present on Admission: No
[2021-03-16] MEDS: INSULIN LISPRO 1 UNIT/0.01 ML UNIT SQ SCH (08:20)
[2021-03-16] MEDS: PRAZOSIN 1 MG CAPSULE PO SCH (08:21)
[2021-03-16] MEDS: ENOXAPARIN 80 MG/0.8 ML SYRINGE SQ SCH (08:51)
[2021-03-16] MEDS: MULTIVIT,THER IRON,CA,FA & MIN 1 TABLET PO SCH (08:52)
[2021-03-16] MEDS: FUROSEMIDE 40 MG TABLET PO SCH (08:52)
[2021-03-16] MEDS: DOCUSATE SODIUM 100 MG CAPSULE PO SCH (08:52)
[2021-03-16] MEDS: METOPROLOL TARTRATE 25 MG TABLET PO SCH (08:52)
[2021-03-16] MEDS: SPIRONOLACTONE 25 MG TABLET PO SCH (08:52)
[2021-03-16] MEDS: CLOTRIMAZOLE CRM 1% 1 DOSE TUBE TOPICAL SCH (08:52)
[2021-03-16] MEDS: ASPIRIN 81 MG TAB.CHEW PO SCH (08:52)
[2021-03-16] MEDS: LISINOPRIL 2.5 MG TABLET PO SCH (09:11)
[2021-03-16] MEDS: FISH OIL 1,000 MG CAPSULE PO SCH (09:11)
[2021-03-16] MEDS: SIMVASTATIN 40 MG TABLET PO SCH (09:11)
[2021-03-16] MEDS: VITAMIN D3 1,000 UNIT TABLET PO SCH (09:11)
--- NOTE | 2021-03-16 09:32 | Discharge Summary ---
Discharge Provider Provider Patient information: Note initiated : 03/16/21 at 9:29 am Service Date, if different from initiated Date: [] Patient: Carly Jaime 85 y/o F admitted on 03/13/21 for Shortness of breath. Chief Complaint: [CHF exacerbation ] Date of admission: 03/13/21 10:48 Discharge date: 03/16/21 Primary care physician: Miranda Sinha Consults: 03/13/21 Consult to Physician [CONS] Stat Comment: Consulting Provider: Ghassan aMrtinez Reason For Exam: Physician to Consult Discharge Meds Discharge Medications Home Medications flaxseed 1,200 mg PO DAILY 08/12/15 [History Confirmed 03/13/21 Last Taken 03/13/21 07:00] glipizide 10 mg PO DAILY 08/12/15 [History Confirmed 03/13/21 Last Taken 03/13/21 07:00] metformin [Glucophage] 1,000 mg PO BID 08/12/15 [History Confirmed 03/13/21 Last Taken 03/12/21 19:00] nitroglycerin 0.4 mg SL Q5M PRN 08/12/15 [History Confirmed 03/13/21 Last Taken Unknown] Centrum Silver 1 ea PO DAILY 02/01/18 [History Confirmed 03/13/21 Last Taken 03/13/21 07:00] metoprolol tartrate 25 mg PO BID #30 tab 02/01/18 [Rx Confirmed 03/13/21 Last Taken 03/12/21 19:00] albuterol sulfate 90 mcg/actuation aerosol inhaler 2 puff INHALATION Q4H PRN g 10/04/20 [History Confirmed 03/13/21 Last Taken Unknown] aspirin 81 mg tablet 81 mg PO QDAY 10/04/20 [History Confirmed 03/13/21 Last Taken 03/12/21 07:00] blood-glucose meter #1 each 10/04/20 [History Confirmed 03/13/21 Last Taken Unknown] cholecalciferol (vitamin D3) 25 mcg (1,000 unit) tablet 25 mcg PO QDAY 10/04/20 [History Confirmed 03/13/21 Last Taken 03/12/21 07:00] clotrimazole 1 % topical cream 1 applic TOPICAL BID 10/04/20 [History Confirmed 03/13/21 Last Taken 03/13/21 07:00] fluticasone propionate 50 mcg/actuation nasal spray,suspension 2 spray INTRANASAL QHS 10/04/20 [History Confirmed 03/13/21 Last Taken 03/12/21 19:00] fosinopril 40 mg tablet 40 mg PO DAILY 10/04/20 [History Confirmed 03/13/21 Last Taken 03/12/21 19:00] furosemide 40 mg tablet 80 mg PO QAM tab 10/04/20 [History Confirmed 03/13/21 Last Taken 03/12/21 03:00] lorazepam 0.5 mg tablet 0.5 mg PO QDAY PRN 10/04/20 [History Confirmed 03/13/21 Last Taken Unknown] omega-3 fatty acids 1 tab PO QDAY 10/04/20 [History Confirmed 03/13/21 Last Taken 03/13/21 07:00] simvastatin 40 mg tablet 20 mg PO QDAY tab 10/04/20 [History Confirmed 03/13/21 Last Taken Unknown] sodium chloride 2.65 % nasal spray aerosol 1 % INTRANASAL Q1H PRN ml 10/04/20 [History Confirmed 03/13/21 Last Taken 03/12/21 19:00] spironolactone 25 mg tablet 25 mg PO QDAY 10/04/20 [History Confirmed 03/13/21 Last Taken 03/12/21 19:00] warfarin 5 mg tablet 5 mg PO DAILY 10/04/20 [History Confirmed 03/13/21 Last Taken 03/12/21 07:00] diclofenac sodium 1 % topical gel 2 g .ROUTE .COMPLEX PRN #100 g 01/07/21 [Rx Confirmed 03/13/21 Last Taken Unknown] COURSE Hospital Course Hospital course: CHF exacerbation: Strict intake and output measurement, daily weigh, and 2L/day fluid restriction applied. Aggressive diuretics initially IV Lasix and later transitioned to oral Lasix, together with metoprolol, Lisinopril, and Spironolactone also provided. Supplemental oxygen provided to [facility] oxygen saturation >=92%. By 03/16/21 patient able to tolerate room air. Atrial fibrillation: Diltiazem drip was initially provided and later being transitioned to oral metoprolol tartrate for heart rate control. Warfarin dosage adjustment with daily INR check. INR goal 2-3. INR still subtherapeutic at 1.2 on 03/16/21, but patient insisted to be discharged home and stated instead that she would go to her PCP clinical to have her INR check daily for Warfarin dosage adjustment. Instruction also given to patient to call PCP office Wednesday to request 1 Week PCP follow up appointment. All questions answered prior to patient being physically discharged. Discharge diagnosis: CHF exacerbation Time Spent with Patient Time attestation: Total time spent providing and/or coordinating discharge services: Time spent: Greater than 30 minutes EXAM Constitutional Vitals: Temp Pulse Resp BP Pulse Ox 36.6 C 71 16 150/85 97 03/16/21 04:01 03/14/21 08:00 03/16/21 06:01 03/16/21 06:01 03/16/21 06:42 General appearance: cooperative and no acute distress Head Head exam: Present atraumatic and normocephalic Eye Eye exam: Present EOMI and PERRL ENT ENT exam: Present mucous membranes moist, normal exam and normal external ear exam Neck Neck exam: Present normal inspection; Absent lymphadenopathy, tenderness and thyromegaly Respiratory Respiratory exam: Absent accessory muscle use, respiratory distress and wheezes Cardiovascular Cardiovascular exam: Present normal rate and rhythm; Absent JVD GI/Abdominal GI/Abdominal exam: Present normal bowel sounds and soft; Absent organomegaly and tenderness Extremities Exam Extremities exam: Present full ROM, normal capillary refill and normal inspection; Absent tenderness Neurological Exam Neurological exam: Present alert, CN II-XII intact and oriented X3; Absent motor sensory deficit Psychiatric Psychiatric exam: Present normal affect and normal mood; Absent anxious and depressed Skin Skin exam: Present dry and intact Discharge Data Data Completed and Pending Labs on day of discharge: Labs from last 24 hours 03/16/21 03/16/21 03/16/21 04:58 04:58 04:58 WBC 6.0 RBC 4.06 Hgb 13.3 Hct 40.7 MCV 100.2 H MCH 32.8 MCHC 32.7 RDW 13.5 Plt Count 213 MPV 10.7 H Neut % (Auto) 44.9 Lymph % (Auto) 31.9 [place] % (Auto) 15.4 H Eos % (Auto) 6.5 Baso % (Auto) 1.3 Lymph # (Auto) 1.92 [place] # (Auto) 0.93 H Eos # (Auto) 0.39 Baso # (Auto) 0.08 Absolute Neutrophils 2.70 PT 15.7 H INR 1.2 H Sodium 139 Potassium 3.8 Chloride 98 Carbon Dioxide 29 Anion Gap 12.0 BUN 34 H Creatinine 1.1 GFR Calculation 45 Glucose 138 H Calcium 9.1 Total Bilirubin 0.5 AST 15 ALT 18 Alkaline Phosphatase 89 Total Protein 6.8 Albumin 4.1 Globulin 2.7 Albumin/Globulin Ratio 1.5 Discharge Plan Patient/Caregiver Discharge Instructions Activity: increase activity as tolerated Diet: Cardiac Instructions: Heart Failure (DC), A-fib (Atrial Fibrillation) (GEN) Activity Restrictions/Additional Instructions: This discharge packet is provided to you to help keep you informed about your care. We want to ensure you get everything you need when you go home. You will also be receiving a call from us in a few days to follow up with you and see how you are doing since your discharge. This gives us a chance to listen to any concerns you maybe experiencing since you were discharged or any additional needs you may have, as well as providing us feedback on your care experience. We strive to always provide excellent care and thank you for your feedback and for choosing [facility]. 1 week PCP follow up appointment Need daily INR check through clinic until INR is therapeutic 2-3 for Coumadin dosage adjustment. Prescriptions: Continued aspirin 81 mg tablet 81 mg PO QDAY RF: 0 [facility] 2.65 % aerosol,spray 1 % INTRANASAL Q1H PRN (Reason: Congestion) RF: 0 clotrimazole 1 % cream 1 applic TOPICAL BID RF: 0 (DME) blood-glucose meter [Contour Next Meter] Misc See Rx Instructions .ROUTE .MEDSUPPLY Qty: 1 RF: 0 omega-3 fatty acids 1 tab PO QDAY RF: 0 fluticasone propionate 50 mcg/actuation spray,suspension 2 spray INTRANASAL QHS RF: 0 furosemide 40 mg tablet 80 mg PO QAM RF: 0 lorazepam 0.5 mg tablet 0.5 mg PO QDAY PRN (Reason: Anxiety) RF: 0 spironolactone 25 mg tablet 25 mg PO QDAY RF: 0 albuterol sulfate [Ventolin HFA] 90 mcg/actuation HFA aerosol inhaler 2 puff INHALATION Q4H PRN (Reason: Shortness Of Breath) RF: 0 cholecalciferol (vitamin D3) 25 mcg (1,000 unit) tablet 25 mcg PO QDAY RF: 0 diclofenac sodium 1 % gel 2 g .ROUTE .COMPLEX PRN (Reason: pain) Qty: 100 RF: 0 metformin [Glucophage] 500 MG tablet 1,000 mg PO BID RF: 0 nitroglycerin 0.4 MG tablet, sublingual 0.4 mg SL Q5M PRN (Reason: Chest Pain) RF: 0 glipizide 5 MG tablet 10 mg PO DAILY RF: 0 flaxseed 1,000 MG capsule 1,200 mg PO DAILY RF: 0 fosinopril 40 mg tablet 40 mg PO DAILY RF: 0 simvastatin 40 mg tablet 20 mg PO QDAY RF: 0 warfarin [Jantoven] 5 mg tablet 5 mg PO DAILY RF: 0 Centrum Silver 1 EACH tablet 1 ea PO DAILY RF: 0 metoprolol tartrate 25 MG tablet 25 mg PO BID Qty: 30 RF: 0 Discontinued prazosin [Minipress] 1 mg capsule 2 mg PO BID RF: 0 Follow Up Plan Follow up with: Miranda Sinha MD [Primary Care Provider] - (The office is closed on Wednesday; please call on Wednesday to schedule a post hospital follow up appointment.) Patient Disposition: Home, Self-Care Rehab Potential: Good Overall status at discharge: patient is back to baseline Discharge Orders: Discharge Order (Routine); Ordered 03/16/21 Ordered By: Shane SHAW VTE Deep Vein Thrombosis/Pulmonary Embolism Present on Admission: No
[2021-03-16] MEDS ORDERED: WARFARIN 7.5 MG TABLET PO ONE (14:00)
== END 2021-03-16 11:48 | disposition home or self-care (01) | DRG 291 ==
LOC: ED 06:15 → ICU 10:48
PROVIDERS: ADMIT Internal Medicine; ATTEND Internal Medicine

== ENCOUNTER 2022-02-24 08:20 | Inpatient (IN) ==
--- NOTE | 2022-02-24 08:24 | Emergency Department Note ---
HPI General Chief complaint: Fall Stated complaint: fall, right arm pain, decreased ROM Time Seen by Provider: 02/24/22 08:24 Source: patient Mode of arrival: wheelchair Limitations: no limitations History of Present Illness HPI Narrative: 86-year-old female with past medical history of afib on warfarin, CHF, cervical radiculopathy, diabetes, hypertension, hyperlipidemia, and CAD presenting with right arm pain after fall. Patient reportedly fell sometime last night as she was found by staff at her living facility on the ground. Patient is not sure if she hit her head. She currently has pain in her right arm from the shoulder down to the elbow. Range of motion is limited secondary to pain. Denies any wr ist or hand pain. She has chronic cervical neck pain which is unchanged. She also endorses some mild pain in her midline lower back. No lower extremity pain. Denies fever, cough, shortness of breath, chest pain, vomiting, diarrhea, dysuria, blood in stool, melena, or abdominal pain. She has chronic bilateral lower extremity edema which is unchanged. She is on a diuretic. Has been compliant with her medications. Related Data Home Medications Medication Instructions Recorded Confirmed flaxseed 1,000 mg capsule 1,200 mg PO DAILY 08/12/15 09/16/21 glipizide 5 mg tablet 10 mg PO DAILY 08/12/15 09/16/21 metformin 500 mg tablet 1,000 mg PO BID 08/12/15 09/16/21 (Glucophage) nitroglycerin 0.4 mg sublingual 0.4 mg SL Q5M PRN 08/12/15 09/16/21 tablet [id number] acid 0.4 1 ea PO DAILY 02/01/18 09/16/21 mg-lycopene 300 mcg-lutein 250 mcg tablet (Centrum Silver) albuterol sulfate 90 mcg/actuation 2 puff INHALATION Q4H PRN g 10/04/20 09/16/21 aerosol inhaler (Ventolin HFA) aspirin 81 mg tablet 81 mg PO QDAY 10/04/20 09/16/21 blood-glucose meter (Contour Next #1 each 10/04/20 09/16/21 Meter) cholecalciferol (vitamin D3) 25 25 mcg PO QDAY 10/04/20 09/16/21 mcg (1,000 unit) tablet clotrimazole 1 % topical cream 1 applic TOPICAL BID 10/04/20 09/16/21 fluticasone propionate 50 2 spray INTRANASAL QHS 10/04/20 09/16/21 mcg/actuation nasal spray,suspension fosinopril 40 mg tablet 40 mg PO DAILY 10/04/20 09/16/21 furosemide 40 mg tablet 80 mg PO QAM tab 10/04/20 09/16/21 lorazepam 0.5 mg tablet 0.5 mg PO QDAY PRN 10/04/20 09/16/21 omega-3 fatty acids [Fish Oil 1 tab PO QDAY 10/04/20 09/16/21 Concentrate] simvastatin 40 mg tablet 20 mg PO QDAY tab 10/04/20 09/16/21 sodium chloride 2.65 % nasal spray 1 % INTRANASAL Q1H PRN ml 10/04/20 09/16/21 aerosol ([facility]) spironolactone 25 mg tablet 25 mg PO QDAY 10/04/20 09/16/21 warfarin 5 mg tablet (Jantoven) 5 mg PO DAILY 10/04/20 09/16/21 Previous Rx's Medication Instructions Recorded metoprolol tartrate 25 mg tablet 25 mg PO BID #30 tab 02/01/18 diclofenac sodium 1 % topical gel 2 g .ROUTE .COMPLEX PRN #100 g 01/07/21 naloxone 4 mg/actuation nasal spray 4 mg INTRANASAL Q2M #2 ea 08/18/21 tramadol 50 mg tablet 50 mg PO Q6-8H PRN #120 tab 09/16/21 Allergies Allergy/AdvReac Type Severity Reaction Status Date / Time digoxin Allergy Unknown Unknown Verified 02/24/22 08:25 cephalexin AdvReac Severe Hives Verified 02/24/22 08:25 Sulfa (Sulfonamide AdvReac Severe Rash Verified 02/24/22 08:25 Antibiotics) levofloxacin [From LEVAQUIN] AdvReac Intermediate Rash Verified 02/24/22 08:25 metronidazole [From FLAGYL] AdvReac Intermediate Rash Verified 02/24/22 08:25 clopidogrel [From Plavix] AdvReac Mild Headache, Verified 02/24/22 08:25 Nausea hydrocodone AdvReac Mild Nausea, Verified 02/24/22 08:25 confusion meperidine AdvReac Mild Confusion Verified 02/24/22 08:25 Review of Systems ROS ROS Narrative: Narrative: Constitutional: Denies fever or chills Eyes: Denies vision change ENT ED: Denies throat pain Cardiovascular: Denies chest pain Respiratory: Denies shortness of breath or cough Gastrointestinal: Denies abdominal pain, nausea, vomiting or diarrhea Genitourinary: Denies dysuria or hematuria Musculoskeletal: Reports back pain; Denies joint swelling Integumentary: Denies rash Neurological: Denies headache, weakness or dizziness Psychiatric: Denies anxiety Endocrine: Denies fatigue Hematological/Lymphatic: Denies easy bleeding PFSH Narrative Patient History Narrative: Narrative: Medical/Surgical/Family History All Active Problems Atrial fibrillation (Acute) Dyspnea (Acute) CHF (congestive heart failure) (Acute) Abrasion of skin (Acute) Supratherapeutic INR (Acute) CHF exacerbation (Acute) MARYCHUY (acute kidney injury) (Acute) CHF (congestive heart failure) (Acute) Supratherapeutic INR (Acute) Spondylosis without myelopathy or radiculopathy, cervical region (Acute) Chest pain (Acute) Acute dyspnea (Acute) Pulmonary edema (Acute) Pulmonary edema (Chronic) Cervicalgia (Chronic) Cervical spondylosis (Chronic) Degenerative cervical disc (Chronic) Facet arthropathy, cervical (Chronic) Cervical radiculopathy (Chronic) Chronic pain (Chronic) Easy bruising (Chronic) Memory loss (Chronic) Arthralgia (Chronic) Constipation (Chronic) Heart palpitations (Chronic) Sinus problem (Chronic) Dry mouth (Chronic) Dry eyes (Chronic) Weight loss (Chronic) Anxiety (Chronic) Fracture closed, nasal bone (Chronic) SOB (shortness of breath) (Chronic) Osteopenia (Chronic) Osteoporosis (Chronic) Joint pain, knee (Chronic) Menopause (Chronic) Edema (Chronic) Dyspnea (Chronic) Diabetes mellitus, type II (Chronic ~06/16/18) Costochondritis (Chronic) Chest pain (Chronic) Cellulitis (Chronic) Anemia (Chronic) Sinusitis (Chronic) Abdominal pain (Chronic) History of surgery (Chronic ~1992) History of appendectomy (Chronic ~11/15/1943) History of cholecystectomy (Chronic ~11/15/1953) History of coronary artery bypass graft (Chronic ~11/15/92) History of surgical removal of lesion (Chronic ~11/15/07) History of abdominal surgery (Chronic ~11/15/01) History of hysterectomy (Chronic ~11/15/01) History of partial surgical removal of colon (Chronic ~11/15/01) History of cataract surgery (Chronic ~11/15/06) History of lumpectomy (Chronic) History of colonoscopy (Chronic ~07/07/12) History of total knee arthroplasty (Chronic) Vocal cord cancer (Chronic) History of throat surgery (Chronic) Malignant tumor of breast (Chronic ~06/16/18) Hypertensive disorder (Chronic ~02/08/18) Hyperlipidemia (Chronic ~02/08/18) Complicated grieving (Chronic ~03/27/18) History of coronary artery stent placement (Chronic ~2006) Coronary arteriosclerosis (Chronic ~06/16/18) Osteoarthritis (Chronic ~06/16/18) Atrial septal defect (Chronic ~06/16/18) Diverticular disease (Chronic ~06/16/18) Malignant tumor of larynx (Chronic ~06/16/18) Malignant neoplasm of skin (Chronic ~06/16/18) Diabetes mellitus (Chronic ~06/16/18) Chronic diastolic heart failure (Chronic ~03/28/19) On anticoagulant therapy (Chronic) Renovascular hypertension (Chronic ~12/21/19) 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) Bronchitis (Chronic) Congestive heart failure (Chronic) Paroxysmal SVT (supraventricular tachycardia) (Chronic) Atrial fibrillation (Chronic) S/P biopsy (Chronic 08/13/15) Medical History Abdominal pain Rt Lower Quadrant Anemia Anxiety Arthralgia Atrial fibrillation Atrial septal defect (~06/16/18) Bronchitis Cellulitis Chest Wall Cervical radiculopathy Cervical radiculopathy due to degenerative joint disease of spine Cervical spondylosis Cervicalgia Chest pain Chronic diastolic heart failure (~03/28/19) Chronic pain Complicated grieving (~03/27/18) Congestive heart failure Constipation Coronary arteriosclerosis (~06/16/18) Costochondritis Degenerative cervical disc Diabetes mellitus, type II (~06/16/18) Diverticular disease (~06/16/18) Dry eyes Dry mouth Dyspnea Easy bruising Edema Facet arthropathy, cervical Fracture closed, nasal bone Heart palpitations Hyperlipidemia (~02/08/18) Hypertensive disorder (~02/08/18) Joint pain, knee Malignant neoplasm of skin (~06/16/18) Malignant tumor of breast (~06/16/18) Right - Lumpectomy and Radiation Malignant tumor of larynx (~06/16/18) Memory loss Menopause On anticoagulant therapy Osteoarthritis (~06/16/18) Osteopenia Osteoporosis Paroxysmal SVT (supraventricular tachycardia) Renovascular hypertension (~12/21/19) Sinus problem Sinusitis SOB (shortness of breath) Spondylosis without myelopathy or radiculopathy, cervical region Vocal cord cancer Squamous Cell Carcinoma Weight loss Surgical History History of abdominal surgery (~11/15/01) Diverticular Abscess History of appendectomy (~11/15/1943) History of cataract surgery (~11/15/06) History of cholecystectomy (~11/15/1953) History of colonoscopy (~07/07/12) History of coronary artery bypass graft (~11/15/92) History of coronary artery stent placement (~2006) History of hysterectomy (~11/15/01) 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 Anish Quintanilla - Left Vocal Cord Family History Brother Acute myocardial infarction Diabetes mellitus Osteoarthritis Pneumonia Sister Diverticular disease Daughter Fibromyalgia Father Leukemia Osteoarthritis Malignant neoplasm of skin Mother , Age 53 CVA (cerebral vascular accident) Family/Other CVA (cerebral vascular accident) Other Colon cancer Social History Smoking Status: Former smoker Alcohol Intake Frequency: does not drink Substance Use: does not use Exam Narrative Narrative: Narrative: General Limitations: no limitations General appearance: Present alert and in no apparent distress Head Head: Present atraumatic and normocephalic Eye Eye: Present normal appearance, PERRL, EOMI and visual lambert intact; Absent scleral icterus, conjunctival injection or nystagmus ENT ENT: Present mucous membranes moist Neck Neck: Present normal inspection, full ROM, trachea midline and other (No midline cervical tenderness to palpation); Absent lymphadenopathy Chest Chest: Present symmetric chest wall rise Respiratory Respiratory: Present normal lung sounds bilaterally; Absent respiratory distress, wheezes, stridor, accessory muscle use or prolonged expiratory phase Cardiovascular Cardiovascular: Present regular rate and normal rhythm; Absent systolic murmur or diastolic murmur Adbominal Abdominal: Present soft; Absent distention, tenderness, guarding, rebound, rigidity, organomegaly or mass Extremities Extremities: Present other (1+ bilateral lower extremity edema to the midcalf) Expanded Upper Extremity Shoulder: Present normal inspection, tenderness and other (Right shoulder range of motion limited secondary to pain); Absent deformity Arm: Present normal inspection and tenderness; Absent deformity Elbow: Present normal inspection, tenderness and other (Right elbow range of motion limited secondary to pain); Absent deformity Forearm/Wrist: Present normal inspection and full ROM; Absent tenderness, deformity or tenderness over anatomical snuff box Hand: Present normal inspection and full ROM; Absent tenderness or swelling Vascular: Normal capillary refill and radial pulse Back Back: Present L-S tenderness; Absent CVA tenderness (R) or CVA tenderness (L) Neurological Neurological: Present alert, oriented X3 and CN II-XII intact; Absent motor sensory deficit Psychiatric Psychiatric: Present normal affect and normal mood Skin Skin: Present warm (WNL) and dry Course Consultations Consultation #1: Dr. Martinez, hospitalist Time: 11:40 Vital Signs Vital signs: Vital Signs Temperature 96.8 F L 02/24/22 08:21 Pulse Rate 85 02/24/22 08:21 Respiratory Rate 18 02/24/22 08:21 Blood Pressure 111/65 02/24/22 08:21 Pulse Oximetry (%) 97 02/24/22 08:21 Temperature 96.8 F L 02/24/22 08:21 Pulse Rate 93 H 02/24/22 10:16 Respiratory Rate 18 02/24/22 08:21 Blood Pressure 102/66 02/24/22 11:31 Pulse Oximetry (%) 94 02/24/22 10:16 [facility] Narrative Medical decision making narrative: 86-year-old female presenting with right arm pain after a fall. Unknown head injury and she is on warfarin. No external signs of trauma but she does have limited range of motion in the right shoulder and elbow as well as tenderness. Neurovascularly intact. Will obtain labs including INR, EKG, x-rays, and CT head. 0920: EKG shows atrial fibrillation with no ischemic changes and is unchanged from previous EKG. 0925: Imaging negative for acute traumatic injury or fracture. 1200: Labs notable for acute on chronic renal insufficiency with a creatinine of 1.9. Baseline appears to be around 1.4. Potassium is mildly elevated at 5.5, no EKG changes noted. INR is supratherapeutic at 8.4. No evidence of acute bleeding, hemoglobin is stable at 11.6. 1mg vitamin K p.o. given. Given her MARYCHUY, supratherapeutic INR, and tenuous volume status with her history of CHF, I believe she should be admitted for gentle hydration and monitoring of her INR until it is in a more therapeutic range. She was given a 500cc normal saline bolus. Patient endorsed to Dr. Martinez for admission. Lab Data Lab results reviewed: Yes I reviewed the patient's lab results. Result diagrams: 02/24/22 09:14 Labs: Lab Results 02/24/22 02/24/22 02/24/22 Range/Units 09:14 09:14 09:14 WBC 10.3 (4.5-11.0) K/mcL RBC 3.55 L (3.59-5.38) M/mcL Hgb 11.6 (11.2-15.7) g/dL Hct 35.3 (34.1-44.9) % POC Hct 36 (36-48) % MCV 99.4 (80.0-100.0) fL MCH 32.7 (26.0-34.0) pg MCHC 32.9 (31.0-36.0) g/dL RDW 14.3 (11.5-14.5) % Plt Count 210 (140-440) K/mcL MPV 11.0 H (7.4-10.4) fL Neut % (Auto) 76.2 (38.0-78.0) % Lymph % (Auto) 12.9 L (15.5-49.0) % [place] % (Auto) 10.2 (1.0-12.0) % Eos % (Auto) 0.3 (0.0-7.0) % Baso % (Auto) 0.4 (0.0-2.0) % Lymph # (Auto) 1.33 L (1.50-4.80) K/mcL [place] # (Auto) 1.05 H (0.10-0.90) K/mcL Eos # (Auto) 0.03 (0.00-0.70) K/mcL Baso # (Auto) 0.04 (0.00-0.30) K/mcL Absolute Neutrophils 7.88 (1.80-8.00) K/mcL PT 73.1 H (11.9-14.5) sec INR 8.4 H* (0.9-1.1) POC Sodium 134 (133-145) mEq/L POC Potassium 5.5 H (3.3-5.1) mEql/L POC Chloride 101 (96-108) mEq/L POC Total CO2 22 (22-30) mmol/L POC BUN 43 H (6-20) mg/dL POC Creatinine 1.9 H (0.6-1.2) mg/dL POC Glucose 183 H (70-105) mg/dL POC WB Ioniz Calcium 1.20 (1.16-1.32) mmEq/L Radiology Data Radiology results reviewed: Yes I reviewed the patient's radiology results. Radiology results narrative: Ordering Physician:Lazaro Bull M.D. Date of Service:02/24/22 Procedure(s):CT head/brain wo con INDICATION: fall, on warfarin COMPARISON: None. TECHNIQUE: Axial noncontrast-enhanced images through the brain. Sagittally and coronally reformatted images. FINDINGS: Cerebral hemispheres:No acute intra-axial hemorrhage. There is cerebral atrophy with mildly enlarged superficial subarachnoid spaces and significant ventriculomegaly. There is severe white matter abnormality consistent with small vessel ischemic change in this 86-year-old patient. There is a focal area of encephalomalacia in the right frontal lobe. Appearance is consistent with nonacute infarction. This is probably watershed territory. No acute intra-axial abnormality. No localized mass effect. No midline shift. Brainstem and cerebellum:No intra-axial abnormality Extra-axial:No acute hemorrhage. No subdural or epidural hematoma. No subarachnoid hemorrhage. Basilar cisterns are normal Calvarial:No calvarial fracture. No lytic lesion Temporal bones are negative. No destructive lesions Soft tissue, orbits, sinuses:Orbits and visualized facial soft tissues and paranasal sinuses are negative IMPRESSION: 1. Cerebral atrophy and white matter abnormality as above 2. Nonacute right frontal infarction 3. No acute intracranial hemorrhage. No acute abnormality The exam was performed using radiation dose optimization techniques including, but not limited to, automated exposure control, adjustment of the mA and/or kV according to patient size and use of iterative reconstruction technique. Interpreted and Authenticated by: Raghavendra Chun 02/24/22 Ordering Physician:Lazaro Bull M.D. Date of Service:02/24/22 Procedure(s):XR elbow RT complete 3VW INDICATION: fall, R elbow pain TECHNIQUE: AP, oblique, lateral right elbow COMPARISON: None. FINDINGS: Degenerative joint disease. Degenerative changes are most severe in the ulnar trochlear joint. No right elbow fracture. No plain film evidence for hemarthrosis. No soft tissue gas or radiopaque foreign body IMPRESSION: 1. Degenerative joint disease 2. No right elbow fracture Interpreted and Authenticated by: Raghavendra Chun 02/24/22 Ordering Physician:Lazaro Bull M.D. Date of Service:02/24/22 Procedure(s):XR lumbar spine 2-3V INDICATION: fall, low back pain TECHNIQUE: AP, lateral, L5-S1 spot view COMPARISON: None FINDINGS: Intervertebral discs:Severe multilevel degenerative disc disease. There is marked disc narrowing at L1-2, L2-3, L3-4, L4-5, L5-S1. There are vacuum discs at L1-2, L2-3, L3-4. Vertebral bodies and facets:Normal lumbar vertebral body heights. No compression deformities. Facets are normally aligned. There is severe facet arthropathy at L3-4, L4-5, L5-S1. There is left convex lumbar scoliosis Sacrum and sacroiliac joints:No detectable sacral fracture. Soft tissues:There is calcification of the abdominal aorta. No abdominal aortic aneurysm. There is a stent in the left upper quadrant. IMPRESSION: 1. Severe multilevel degenerative disc disease and facet arthropathy 2. No acute posttraumatic abnormality Interpreted and Authenticated by: Raghavendra Chun 02/24/22 0 0 Pest Control Supervisor: <Electronically signed by Raghavendra Chun M.D. in OV> 02/24/22 09 Ordering Physician:Lazaro Bull M.D. Date of Service:02/24/22 Procedure(s):XR shoulder comp RT min 2VW INDICATION: fall, R shoulder pain TECHNIQUE: AP internal and external rotation, Y view COMPARISON: Previous right shoulder dated 03/07/2020 FINDINGS: Degenerative joint disease in the right acromioclavicular joint and glenohumeral joint. No acute fracture. No glenohumeral subluxation or dislocation. Scapula and clavicle are negative. Visualized right ribs are negative IMPRESSION: 1. Degenerative joint disease 2. No right shoulder fracture Interpreted and Authenticated by: Raghavendra Chun 02/24/22 3 3 Pest Control Supervisor: <Electronically signed by Raghavendra Chun M.D. in OV> 02/24/22 0916 EKG Data EKG #1: EKG attestation: Yes I reviewed and interpreted this EKG. and Yes There are no EKG findings of acute coronary syndrome EKG results narrative: Atrial fibrillation at [address] elevation or depression. Appears unchanged from previous EKG. When compared to previous EKG there are: no significant changes Interpretation: no acute changes Discharge Plan Patient/Caregiver Discharge Instructions Pt seen by MANUFACTURING PLANNER/PA only: No Clinical Impression: MARYCHUY (acute kidney injury), CHF (congestive heart failure), Supratherapeutic INR Patient Disposition: Xfer As Inpt ([facility]) Condition: Fair Follow up with: Tawnya Metz FNP [Primary Care Provider] - Prescriptions: No Action aspirin 81 mg tablet 81 mg PO QDAY 0RF [facility] Sinus 2.65 % aerosol,spray 1 % INTRANASAL Q1H PRN (Reason: Congestion) 0RF Rx Instructions: While Awake clotrimazole 1 % cream 1 applic TOPICAL BID 0RF (DME) blood-glucose meter [Contour Next Meter] Misc See Rx Instructions .ROUTE .MEDSUPPLY Qty: 1 0RF Rx Instructions: As directed omega-3 fatty acids 1 tab PO QDAY 0RF fluticasone propionate 50 mcg/actuation spray,suspension 2 spray INTRANASAL QHS 0RF Rx Instructions: administer into each nostril furosemide 40 mg tablet 80 mg PO QAM 0RF Rx Instructions: May take 1 addt'l tablet if you are short of breath lorazepam 0.5 mg tablet 0.5 mg PO QDAY PRN (Reason: Anxiety) 0RF spironolactone 25 mg tablet 25 mg PO QDAY 0RF albuterol sulfate [Ventolin HFA] 90 mcg/actuation HFA aerosol inhaler 2 puff INHALATION Q4H PRN (Reason: Shortness Of Breath) 0RF cholecalciferol (vitamin D3) 25 mcg (1,000 unit) tablet 25 mcg PO QDAY 0RF diclofenac sodium 1 % gel 2 g .ROUTE .COMPLEX PRN (Reason: pain) Qty: 100 0RF Rx Instructions: 2 grams ; apply 1-2 grams to neck area up to TID PRN; naloxone 4 mg/actuation spray,non-aerosol 4 mg intranasal Q2M Qty: 2 0RF Rx Instructions: spray 1 dose into ONE nostril; alternate nostrils w each dose until help arrives tramadol 50 mg tablet 50 mg PO Q6-8H PRN (Reason: pain) Qty: 120 1RF metformin [Glucophage] 500 MG tablet 1,000 mg PO BID 0RF nitroglycerin 0.4 MG tablet, sublingual 0.4 mg SL Q5M PRN (Reason: Chest Pain) 0RF Rx Instructions: May repeat in 5 minutes, if chest pain persists go to the ED. glipizide 5 MG tablet 10 mg PO DAILY 0RF flaxseed 1,000 MG capsule 1,200 mg PO DAILY 0RF fosinopril 40 mg tablet 40 mg PO DAILY 0RF Rx Instructions: Take only 1/2 tab if SBP less than 100 simvastatin 40 mg tablet 20 mg PO QDAY 0RF warfarin [Jantoven] 5 mg tablet 5 mg PO DAILY 0RF Centrum Silver 1 EACH tablet 1 ea PO DAILY 0RF metoprolol tartrate 25 MG tablet 25 mg PO BID Qty: 30 0RF
--- NOTE | 2022-02-24 09:08 | Cat Scan Report ---
INDICATION: fall, on warfarin COMPARISON: None. TECHNIQUE: Axial noncontrast-enhanced images through the brain. Sagittally and coronally reformatted images. FINDINGS: Cerebral hemispheres:No acute intra-axial hemorrhage. There is cerebral atrophy with mildly enlarged superficial subarachnoid spaces and significant ventriculomegaly. There is severe white matter abnormality consistent with small vessel ischemic change in this 86-year-old patient. There is a focal area of encephalomalacia in the right frontal lobe. Appearance is consistent with nonacute infarction. This is probably watershed territory. No acute intra-axial abnormality. No localized mass effect. No midline shift. Brainstem and cerebellum:No intra-axial abnormality Extra-axial:No acute hemorrhage. No subdural or epidural hematoma. No subarachnoid hemorrhage. Basilar cisterns are normal Calvarial:No calvarial fracture. No lytic lesion Temporal bones are negative. No destructive lesions Soft tissue, orbits, sinuses:Orbits and visualized facial soft tissues and paranasal sinuses are negative IMPRESSION: 1. Cerebral atrophy and white matter abnormality as above 2. Nonacute right frontal infarction 3. No acute intracranial hemorrhage. No acute abnormality The exam was performed using radiation dose optimization techniques including, but not limited to, automated exposure control, adjustment of the mA and/or kV according to patient size and use of iterative reconstruction technique. Interpreted and Authenticated by: Raghavendra Chun 02/24/22
--- NOTE | 2022-02-24 09:14 | XRay Report ---
INDICATION: fall, R elbow pain TECHNIQUE: AP, oblique, lateral right elbow COMPARISON: None. FINDINGS: Degenerative joint disease. Degenerative changes are most severe in the ulnar trochlear joint. No right elbow fracture. No plain film evidence for hemarthrosis. No soft tissue gas or radiopaque foreign body IMPRESSION: 1. Degenerative joint disease 2. No right elbow fracture Interpreted and Authenticated by: Raghavendra Chun 02/24/22
--- NOTE | 2022-02-24 09:17 | XRay Report ---
INDICATION: fall, low back pain TECHNIQUE: AP, lateral, L5-S1 spot view COMPARISON: None FINDINGS: Intervertebral discs:Severe multilevel degenerative disc disease. There is marked disc narrowing at L1-2, L2-3, L3-4, L4-5, L5-S1. There are vacuum discs at L1-2, L2-3, L3-4. Vertebral bodies and facets:Normal lumbar vertebral body heights. No compression deformities. Facets are normally aligned. There is severe facet arthropathy at L3-4, L4-5, L5-S1. There is left convex lumbar scoliosis Sacrum and sacroiliac joints:No detectable sacral fracture. Soft tissues:There is calcification of the abdominal aorta. No abdominal aortic aneurysm. There is a stent in the left upper quadrant. IMPRESSION: 1. Severe multilevel degenerative disc disease and facet arthropathy 2. No acute posttraumatic abnormality Interpreted and Authenticated by: Raghavendra Chun 02/24/22
--- NOTE | 2022-02-24 09:20 | XRay Report ---
INDICATION: fall, R shoulder pain TECHNIQUE: AP internal and external rotation, Y view COMPARISON: Previous right shoulder dated 03/07/2020 FINDINGS: Degenerative joint disease in the right acromioclavicular joint and glenohumeral joint. No acute fracture. No glenohumeral subluxation or dislocation. Scapula and clavicle are negative. Visualized right ribs are negative IMPRESSION: 1. Degenerative joint disease 2. No right shoulder fracture Interpreted and Authenticated by: Raghavendra Chun 02/24/22
[2022-02-24 09:21] LABS: POC Blood Urea Nitrogen 43 mg/dL (6-20); POC CO2 22 mmol/L (22-30); POC Chloride 101 mEq/L (96-108); POC Creatinine 1.9 mg/dL (0.6-1.2); POC Glucose, Random 183 mg/dL (70-105); POC Hematocrit 36 % (36-48); POC Potassium 5.5 mEql/L (3.3-5.1); POC Sodium 134 mEq/L (133-145)
[2022-02-24] MEDS ORDERED: 0.9 % SODIUM CHLORIDE 500 ML IV ONE (09:25)
[2022-02-24 09:44] LABS: Basophils # (Auto) 0.04 K/mcL (0.00-0.30); Basophils % (Auto) 0.4 % (0.0-2.0); Eosinophils # (Auto) 0.03 K/mcL (0.00-0.70); Eosinophils % (Auto) 0.3 % (0.0-7.0); Hematocrit 35.3 % (34.1-44.9); Hemoglobin 11.6 g/dL (11.2-15.7); Lymphocytes # (Auto) 1.33 K/mcL (1.50-4.80); Lymphocytes % (Auto) 12.9 % (15.5-49.0); Mean Cell Volume 99.4 fL (80.0-100.0); Mean Corpuscular HGB Conc 32.9 g/dL (31.0-36.0); Monocytes # (Auto) 1.05 K/mcL (0.10-0.90); Monocytes % (Auto) 10.2 % (1.0-12.0); Neutrophils % (Auto) 76.2 % (38.0-78.0); Platelet Count 210 K/mcL (140-440); RBC 3.55 M/mcL (3.59-5.38); Red Cell Distribution Width 14.3 % (11.5-14.5); WBC 10.3 K/mcL (4.5-11.0)
[2022-02-24 10:20] LABS: INR 8.4 (0.9-1.1); Prothrombin Time 73.1 sec (11.9-14.5)
[2022-02-24] MEDS ORDERED: PHYTONADIONE 10 MG/ML AMPUL PO ONE (10:27)
--- NOTE | 2022-02-24 11:59 | Internal Med History&Physical ---
HPI History of Present Illness Patient information: Note initiated : 02/24/22 at 11:50 am Service Date, if different from initiated Date: [] Patient: Carly Jaime 86 y/o F admitted on for Fall, Rt Arm Pain, Decreased ROM. Chief Complaint: [] History of present illness: Ms. Jaime is a 86 year old F Presents the ED after a fall last night at her care facility. She was found sitting on the ground. She does not know if she hit her head. 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 She has pain on her right arm and did have x-rays which were unremarkable. No chest pain cough or shortness of breath. No headaches. She did have some upset stomach and nausea last night. Did have diarrhea several days ago. She had [id number]-[id number] lab testing which showed an INR of 8.4. Creatinine is 1.9 with previous readings in January and early February reading 1.4 and 1.5. Testing mildly elevated at 5.5. Patient was seen on February 17 for shortness of breath was treated for CHF exacerbation and told to take extra Lasix for 5 days. Last INR in our system is from January 25 which shows 4.3. Review of Systems: Pertinent positives as above. Denies headache/fever/chills/nausea/vomiting/chest pain/cough/dyspnea/diarrhea. Remaining 10 point review of system reviewed negative. PFSH PFSH All Active Problems Atrial fibrillation (Acute) Dyspnea (Acute) CHF (congestive heart failure) (Acute) Abrasion of skin (Acute) Supratherapeutic INR (Acute) CHF exacerbation (Acute) MARYCHUY (acute kidney injury) (Acute) CHF (congestive heart failure) (Acute) Supratherapeutic INR (Acute) Spondylosis without myelopathy or radiculopathy, cervical region (Acute) Chest pain (Acute) Acute dyspnea (Acute) Pulmonary edema (Acute) Pulmonary edema (Chronic) Cervicalgia (Chronic) Cervical spondylosis (Chronic) Degenerative cervical disc (Chronic) Facet arthropathy, cervical (Chronic) Cervical radiculopathy (Chronic) Chronic pain (Chronic) Easy bruising (Chronic) Memory loss (Chronic) Arthralgia (Chronic) Constipation (Chronic) Heart palpitations (Chronic) Sinus problem (Chronic) Dry mouth (Chronic) Dry eyes (Chronic) Weight loss (Chronic) Anxiety (Chronic) Fracture closed, nasal bone (Chronic) SOB (shortness of breath) (Chronic) Osteopenia (Chronic) Osteoporosis (Chronic) Joint pain, knee (Chronic) Menopause (Chronic) Edema (Chronic) Dyspnea (Chronic) Diabetes mellitus, type II (Chronic ~06/16/18) Costochondritis (Chronic) Chest pain (Chronic) Cellulitis (Chronic) Anemia (Chronic) Sinusitis (Chronic) Abdominal pain (Chronic) History of surgery (Chronic ~1992) History of appendectomy (Chronic ~11/15/1943) History of cholecystectomy (Chronic ~11/15/1953) History of coronary artery bypass graft (Chronic ~11/15/92) History of surgical removal of lesion (Chronic ~11/15/07) History of abdominal surgery (Chronic ~11/15/01) History of hysterectomy (Chronic ~11/15/01) History of partial surgical removal of colon (Chronic ~11/15/01) History of cataract surgery (Chronic ~11/15/06) History of lumpectomy (Chronic) History of colonoscopy (Chronic ~07/07/12) History of total knee arthroplasty (Chronic) Vocal cord cancer (Chronic) History of throat surgery (Chronic) Malignant tumor of breast (Chronic ~06/16/18) Hypertensive disorder (Chronic ~02/08/18) Hyperlipidemia (Chronic ~02/08/18) Complicated grieving (Chronic ~03/27/18) History of coronary artery stent placement (Chronic ~2006) Coronary arteriosclerosis (Chronic ~06/16/18) Osteoarthritis (Chronic ~06/16/18) Atrial septal defect (Chronic ~06/16/18) Diverticular disease (Chronic ~06/16/18) Malignant tumor of larynx (Chronic ~06/16/18) Malignant neoplasm of skin (Chronic ~06/16/18) Diabetes mellitus (Chronic ~06/16/18) Chronic diastolic heart failure (Chronic ~03/28/19) On anticoagulant therapy (Chronic) Renovascular hypertension (Chronic ~12/21/19) 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) Bronchitis (Chronic) Congestive heart failure (Chronic) Paroxysmal SVT (supraventricular tachycardia) (Chronic) Atrial fibrillation (Chronic) S/P biopsy (Chronic 09/29/15) Medical History Abdominal pain Rt Lower Quadrant Anemia Anxiety Arthralgia Atrial fibrillation Atrial septal defect (~06/16/18) Bronchitis Cellulitis Chest Wall Cervical radiculopathy Cervical radiculopathy due to degenerative joint disease of spine Cervical spondylosis Cervicalgia Chest pain Chronic diastolic heart failure (~03/28/19) Chronic pain Complicated grieving (~03/27/18) Congestive heart failure Constipation Coronary arteriosclerosis (~06/16/18) Costochondritis Degenerative cervical disc Diabetes mellitus, type II (~06/16/18) Diverticular disease (~06/16/18) Dry eyes Dry mouth Dyspnea Easy bruising Edema Facet arthropathy, cervical Fracture closed, nasal bone Heart palpitations Hyperlipidemia (~02/08/18) Hypertensive disorder (~02/08/18) Joint pain, knee Malignant neoplasm of skin (~06/16/18) Malignant tumor of breast (~06/16/18) Right - Lumpectomy and Radiation Malignant tumor of larynx (~06/16/18) Memory loss Menopause On anticoagulant therapy Osteoarthritis (~06/16/18) Osteopenia Osteoporosis Paroxysmal SVT (supraventricular tachycardia) Renovascular hypertension (~12/21/19) Sinus problem Sinusitis SOB (shortness of breath) Spondylosis without myelopathy or radiculopathy, cervical region Vocal cord cancer Squamous Cell Carcinoma Weight loss Surgical History History of abdominal surgery (~11/15/01) Diverticular Abscess History of appendectomy (~11/15/1943) History of cataract surgery (~11/15/06) History of cholecystectomy (~11/15/1953) History of colonoscopy (~07/07/12) History of coronary artery bypass graft (~11/15/92) History of coronary artery stent placement (~2006) History of hysterectomy (~11/15/01) 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 Anish Quintanilla - Left Vocal Cord Family History Brother Acute myocardial infarction Diabetes mellitus Osteoarthritis Pneumonia Sister Diverticular disease Daughter Fibromyalgia Father Leukemia Osteoarthritis Malignant neoplasm of skin Mother , Age 53 CVA (cerebral vascular accident) Family/Other CVA (cerebral vascular accident) Other Colon cancer Social History (Updated 10/08/20 @ 15:50 by Little Gibson) marital status: education level: high school occupational status: retired sexually active: No well-balanced diet: daily or most days alcohol intake frequency: does not drink substance use type: does not use seatbelt use: always firearms in home: Yes MEDS/ALLERGIES Home Medications and Allergies Home Medications Medication Instructions Recorded Confirmed Type flaxseed 1,000 mg capsule 1,200 mg PO DAILY 08/12/15 09/16/21 History glipizide 5 mg tablet 10 mg PO DAILY 08/12/15 09/16/21 History metformin 500 mg tablet 1,000 mg PO BID 08/12/15 09/16/21 History (Glucophage) nitroglycerin 0.4 mg sublingual 0.4 mg SL Q5M PRN 08/12/15 09/16/21 History tablet metoprolol tartrate 25 mg tablet 25 mg PO BID #30 tab 02/01/18 09/16/21 Rx kvnnodjf-ftl-ruuvc acid 0.4 1 ea PO DAILY 02/01/18 09/16/21 History mg-lycopene 300 mcg-lutein 250 mcg tablet (Centrum Silver) albuterol sulfate 90 mcg/actuation 2 puff INHALATION Q4H PRN g 10/04/20 09/16/21 History aerosol inhaler (Ventolin HFA) aspirin 81 mg tablet 81 mg PO QDAY 10/04/20 09/16/21 History blood-glucose meter (Contour Next #1 each 10/04/20 09/16/21 History Meter) cholecalciferol (vitamin D3) 25 25 mcg PO QDAY 10/04/20 09/16/21 History mcg (1,000 unit) tablet clotrimazole 1 % topical cream 1 applic TOPICAL BID 10/04/20 09/16/21 History fluticasone propionate 50 2 spray INTRANASAL QHS 10/04/20 09/16/21 History mcg/actuation nasal spray,suspension fosinopril 40 mg tablet 40 mg PO DAILY 10/04/20 09/16/21 History furosemide 40 mg tablet 80 mg PO QAM tab 10/04/20 09/16/21 History lorazepam 0.5 mg tablet 0.5 mg PO QDAY PRN 10/04/20 09/16/21 History omega-3 fatty acids [Fish Oil 1 tab PO QDAY 10/04/20 09/16/21 History Concentrate] simvastatin 40 mg tablet 20 mg PO QDAY tab 10/04/20 09/16/21 History sodium chloride 2.65 % nasal spray 1 % INTRANASAL Q1H PRN ml 10/04/20 09/16/21 History aerosol (Reading Allergy and Sinus) spironolactone 25 mg tablet 25 mg PO QDAY 10/04/20 09/16/21 History warfarin 5 mg tablet (Jantoven) 5 mg PO DAILY 10/04/20 09/16/21 History diclofenac sodium 1 % topical gel 2 g .ROUTE .COMPLEX PRN #100 g 01/07/21 09/16/21 Rx naloxone 4 mg/actuation nasal spray 4 mg INTRANASAL Q2M #2 ea 08/18/21 09/16/21 Rx tramadol 50 mg tablet 50 mg PO Q6-8H PRN #120 tab 09/16/21 09/16/21 Rx Allergies Allergy/AdvReac Type Severity Reaction Status Date / Time digoxin Allergy Unknown Unknown Verified 02/24/22 08:25 cephalexin AdvReac Severe Hives Verified 02/24/22 08:25 Sulfa (Sulfonamide AdvReac Severe Rash Verified 02/24/22 08:25 Antibiotics) levofloxacin [From LEVAQUIN] AdvReac Intermediate Rash Verified 02/24/22 08:25 metronidazole [From FLAGYL] AdvReac Intermediate Rash Verified 02/24/22 08:25 clopidogrel [From Plavix] AdvReac Mild Headache, Verified 02/24/22 08:25 Nausea hydrocodone AdvReac Mild Nausea, Verified 02/24/22 08:25 confusion meperidine AdvReac Mild Confusion Verified 02/24/22 08:25 EXAM Constitutional Vitals: Temp Pulse Resp BP Pulse Ox 96.8 F L 93 H 18 102/66 94 02/24/22 08:21 02/24/22 10:16 02/24/22 08:21 02/24/22 11:31 02/24/22 10:16 Exam: General: Alert, Awake, No acute Distress Eyes/N/T: EOMI, PERRL, dryMM Head/Neck: neck supple, normocephalic atraumatic CV: irreg irreg, 2/6 SM, normal s1/s2 Pulm: Mild bibasilar Rales, no wheezing Abd: soft, nontender, +BS x4 Ext: no clubbing/cyanosis, 1-2+ b/l LE edema Neuro: Alert, no focal deficits, moves all extremities, CN 2-12 grossly intact, symmetrical strength b/l upper/lower, sensations intact b/l upper/lower Skin: warm/dry DATA Data Completed and Pending Labs: Labs from last 24 hours 02/24/22 02/24/22 02/24/22 09:14 09:14 09:14 WBC 10.3 RBC 3.55 L Hgb 11.6 Hct 35.3 POC Hct 36 MCV 99.4 MCH 32.7 MCHC 32.9 RDW 14.3 Plt Count 210 MPV 11.0 H Neut % (Auto) 76.2 Lymph % (Auto) 12.9 L [place] % (Auto) 10.2 Eos % (Auto) 0.3 Baso % (Auto) 0.4 Lymph # (Auto) 1.33 L [place] # (Auto) 1.05 H Eos # (Auto) 0.03 Baso # (Auto) 0.04 Absolute Neutrophils 7.88 PT 73.1 H INR 8.4 H* POC Sodium 134 POC Potassium 5.5 H POC Chloride 101 POC Total CO2 22 POC BUN 43 H POC Creatinine 1.9 H POC Glucose 183 H POC WB Ioniz Calcium 1.20 A/P Narrative A/P Narrative: A: *Fall/generalized weakness: *MARYCHUY on CKD III: *Hyperkalemia, mild *h/o systolic(25-30) CHF & RV heart failure: *Afib: on wafarin *INR supratherapeutic: *CAD w/CABG-stent: *HTN/HLD: *DM: *Anxiety: *CKD III: *anemia, chronic *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
[2022-02-24] MEDS ORDERED: POTASSIUM CHLORIDE 20 MEQ TABLET PO PRN ×2 (12:37)
[2022-02-24] MEDS ORDERED: POTASSIUM CHLORIDE 40 MEQ in DEXTROSE 5% IN WATER 500 ML IV PRN (12:37)
[2022-02-24] MEDS ORDERED: METOCLOPRAMIDE 10 MG/2 ML VIAL IV PRN (12:37)
[2022-02-24] MEDS ORDERED: POLYETHYLENE GLYCOL 3350 17 GM PACKET PO PRN (12:37)
[2022-02-24] MEDS ORDERED: ONDANSETRON 4 MG/2 ML VIAL IV PRN (12:37)
[2022-02-24] MEDS ORDERED: MAGNESIUM SULFATE 2 GM/50 ML BAG IV PRN (12:37)
[2022-02-24 15:47] LABS: Prothrombin Time 70.4 sec (11.9-14.5)
[2022-02-24] MEDS: IPRATROPIUM/ALBUTEROL 3 ML AMPUL.NEB NEB PRN (16:12)
[2022-02-24] MEDS ORDERED: NITROGLYCERIN 0.4 MG TAB.SUBL SL PRN (16:16)
[2022-02-24] MEDS: 0.9 % SODIUM CHLORIDE 10 ML SYRINGE IV SCH ×2 (16:17→21:25)
[2022-02-24] MEDS ORDERED: Diclofenac Sodium 1 % gel TOPICAL PRN (16:23)
[2022-02-24] MEDS: traMADol 50 MG TABLET PO PRN (16:28)
[2022-02-24] MEDS ORDERED: METOPROLOL TARTRATE 25 MG TABLET PO SCH (21:00)
[2022-02-24] MEDS: METOPROLOL TARTRATE 25 MG TABLET PO SCH (21:07)
[2022-02-24] MEDS: SIMVASTATIN 20 MG TABLET PO SCH (21:24)
[2022-02-25] MEDS: 0.9 % SODIUM CHLORIDE 10 ML SYRINGE IV SCH ×3 (06:10→22:46)
[2022-02-25] MEDS: traMADol 50 MG TABLET PO PRN ×2 (06:11→13:59)
[2022-02-25 06:54] LABS: ALT/SGPT 150 U/L (<40); AST/SGOT 229 U/L (<32); Albumin 3.9 gm/dL (3.2-5.2); Albumin/Globulin Ratio 1.3 (1.0-2.3); Alkaline Phosphatase 90 U/L (39-117); Bilirubin,Direct 0.3 mg/dL (<0.3); Bilirubin,Total 0.8 mg/dL (0.1-1.0); Blood Urea Nitrogen 54 mg/dL (8-23); Calcium 9.4 mg/dL (8.6-10.4); Carbon Dioxide 18 mmol/L (22-30); Chloride 96 mmol/L (96-108); Glomerular Filtration Rate 25; Glucose 174 mg/dL (70-105); Lactate Dehydrogenase 393 U/L (135-225); Phosphorous 5.4 mg/dL (2.5-4.5); Triglycerides 90 mg/dL (<150); Uric Acid 12.6 mg/dL (2.5-8.0)
[2022-02-25 06:57] LABS: Prothrombin Time 48.6 sec (11.9-14.5)
--- NOTE | 2022-02-25 07:17 | Internal Med Progress Note ---
SUBJECTIVE Subjective Patient information: Note initiated : 02/25/22 at 7:12 am Service Date, if different from initiated Date: [] Patient: Carly Jaime 86 y/o F admitted on 02/24/22 for Fall, Rt Arm Pain, Decreased ROM. Chief Complaint: [] Interval history: History of present illness: Ms. Jaime is a 86 year old F Presents the ED after a fall last night at her care facility. She was found sitting on the ground. She does not know if she hit her head. 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 She has pain on her right arm and did have x-rays which were unremarkable. No chest pain cough or shortness of breath. No headaches. She did have some upset stomach and nausea last night. Did have diarrhea several days ago. She had umeth-pz-mgsf lab testing which showed an INR of 8.4. Creatinine is 1.9 with previous readings in January and early February reading 1.4 and 1.5. Testing mildly elevated at 5.5. Patient was seen on February 17 for shortness of breath was treated for CHF exacerbation and told to take extra Lasix for 5 days. Last INR in our system is from January 25 which shows 4.3. 4 Still waiting for urine studies. No complaints overnight. INR 5 this morning. Potassium elevated sodium low. Metabolic acidosis. Upset stomach. Chest x-ray reported with possible mild interstitial edema Review of Systems: denies headache/fever/chills/nausea/vomiting/chest pain/cough/dyspnea/diarrhea. Otherwise see above. Constitutional Vitals: Vital Signs Temp Pulse Resp BP Pulse Ox 96.3 F L 90 24 H 99/69 98 02/25/22 06:58 02/25/22 06:58 02/25/22 06:58 02/25/22 06:58 02/25/22 06:58 Period Temp Pulse Resp BP Sys/Ho Pulse Ox Last 24 Hr 96.3 F-97.2 F 72-109 18-24 90-111/65-95 90-100 Intake and Output 02/24/22 02/25/22 02/25/22 21:59 05:59 13:59 Intake Total 110 Output Total 1 2 Balance -1 108 Weight 84.822 kg Intake & Output: Intake & Output 04/11/0502/25/22 02/25/22 21:59 05:59 13:59 Intake Total 110 Output Total 1 2 Balance -1 108 Weight 84.822 kg Intake: Oral 110 Output: Void Amount 0 # of times incontinent of urine 1 2 Other: Urine Color Bright Yellow Urine Odor Strong # Voids 1 Exam: General: Alert, Awake, No acute Distress Eyes/N/T: EOMI, Head/Neck: neck supple, CV: irreg irreg, 2/6 SM, Pulm: Mild bibasilar Rales, no wheezing Abd: soft, nontender, +BS x4 Ext: no clubbing/cyanosis, 1-2+ b/l LE edema Neuro: Alert, no focal deficits, moves all extremities, Skin: warm/dry OBJ DATA Labs CBC & Chem 7: 02/24/22 09:14 02/25/22 05:13 Labs: Abnormal Lab Results 02/25/22 02/25/22 02/24/22 05:13 05:13 12:53 RBC MPV Lymph % (Auto) Lymph # (Auto) [place] # (Auto) PT 48.6 H 70.4 H INR 5.0 H 8.0 H* Sodium 131 L POC Potassium Potassium 5.6 H Carbon Dioxide 18 L Anion Gap 17.0 H POC BUN BUN 54 H Creatinine 1.8 H POC Creatinine Glucose 174 H POC Glucose Uric Acid 12.6 H Phosphorus 5.4 H Direct Bilirubin 0.3 H AST 229 H ALT 150 H Lactate Dehydrogenase 393 H 02/24/22 02/24/22 02/24/22 09:14 09:14 09:14 RBC 3.55 L MPV 11.0 H Lymph % (Auto) 12.9 L Lymph # (Auto) 1.33 L [place] # (Auto) 1.05 H PT 73.1 H INR 8.4 H* Sodium POC Potassium 5.5 H Potassium Carbon Dioxide Anion Gap POC BUN 43 H BUN Creatinine POC Creatinine 1.9 H Glucose POC Glucose 183 H Uric Acid Phosphorus Direct Bilirubin AST ALT Lactate Dehydrogenase Meds: Medications Acetaminophen (Acetaminophen 325 Mg Tablet) 650 mg PO Q6HP PRN; Protocol PRN Reason: Per Pain Protocol/Fever > 101 Albuterol/Ipratropium (Ipratropium/Albuterol 3 Ml Ampul.Neb) 3 ml NEB Q4HP PRN PRN Reason: Shortness Of Breath Last Admin: 02/24/22 16:12 Dose: 3 ml Documented by: Aspirin (Aspirin 81 Mg Tab.Chew) 81 mg PO DAILY [facility] Glipizide (Glipizide 5 Mg Tablet) 10 mg PO DAILY [facility] Potassium Chloride 40 meq/ (Dextrose) 520 mls @ 130 mls/hr IV UD PRN PRN Reason: Potassium < 3 Magnesium Sulfate (Magnesium Sulfate) 2 gm in 50 mls @ 50 mls/hr IV UD PRN PRN Reason: Magnesium </= 1.6 Lorazepam (Lorazepam 0.5 Mg Tablet) 0.5 mg PO DAILYP PRN PRN Reason: Anxiety Metoclopramide HCl (Metoclopramide 10 Mg/2 Ml Vial) 10 mg IV Q6HP PRN PRN Reason: Nausea And Vomiting Metoprolol Tartrate (Metoprolol Tartrate 5 Mg/5 Ml Vial) 5 mg IV Q2HP PRN PRN Reason: Tachyarrhythmias HR>110 Metoprolol Tartrate (Metoprolol Tartrate 25 Mg Tablet) 25 mg PO BID [facility] Last Admin: 02/24/22 21:07 Dose: Not Given Documented by: Nitroglycerin (Nitroglycerin 0.4 Mg Tab.Subl) 0.4 mg SL Q5M PRN PRN Reason: Chest Pain Ondansetron HCl (Ondansetron 4 Mg/2 Ml Vial) 4 mg IV Q4HP PRN PRN Reason: Nausea And Vomiting Diclofenac Sodium 1 (% Gel) 2 dose TOPICAL TIDP PRN PRN Reason: pain Polyethylene Glycol (Polyethylene Glycol 3350 17 Gm Packet) 17 gm PO DAILYP PRN PRN Reason: Constipation Potassium Chloride (Potassium Chloride 20 Meq Tablet) 40 meq PO UD PRN PRN Reason: Potssium is 3-3.5 Potassium Chloride (Potassium Chloride 20 Meq Tablet) 40 meq PO UD PRN PRN Reason: Potassium < 3 Simvastatin (Simvastatin 20 Mg Tablet) 20 mg PO HS [facility] Last Admin: 02/24/22 21:24 Dose: 20 mg Documented by: Sodium Chloride (0.9 % Sodium Chloride 10 Ml Syringe) 10 ml IV Q8 [facility] Last Admin: 02/25/22 06:10 Dose: 10 ml Documented by: Tramadol HCl (Tramadol 50 Mg Tablet) 50 mg PO Q6-8HP PRN PRN Reason: Pain Last Admin: 02/25/22 06:11 Dose: 50 mg Documented by: Vitamin D (Vitamin D3 25 Mcg Tablet) 25 mcg PO QDAY JAMIN A/P Narrative A/P Narrative: A: *Fall/generalized weakness: *MARYCHUY on CKD III: *Hyperkalemia/hyperphos: *Hyponatremia: *Met acidosis: *Transaminitis: *Acute hypoxic respiratory failure: -on 2L NC *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: *Volume status difficult to determine: seems intravascularly dry but extravascularly wet *Afib: on warfarin *INR supratherapeutic: *CAD w/CABG-stent: *HTN/HLD: *DM: *Anxiety: *CKD III: *anemia, chronic *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: P: -hold warfarin, then restart to pharm dosing -f/u renal fxn, check FEurea, still pending UA -liver u/s, CXR -pt/to -hold diuretics until urine studies return -TEDS and elevate legs while in bed -cont BB, hold ACEI and f/u renal fxn adn low BP -cont ASA/statin -SSI -PT/OT -ppx: warfarin held and restart when INR appropriate DNR Time Spent With Patient Time: Total time spent is greater than 50% in coordination of care (as documented) at patient's floor/unit and/or counseling patient: Total time spent with greater than 50% in coordination of care (as documented) at patient's floor/unit and/or counseling patient:: 25 - 35 minutes QUALITY VTE Deep Vein Thrombosis/Pulmonary Embolism Present on Admission: No
[2022-02-25] MEDS ORDERED: DEXTROSE 31 GM ORAL.SUSP PO PRN (07:18)
[2022-02-25] MEDS ORDERED: DEXTROSE 50% 50 ML VIAL IV PRN (07:18)
--- NOTE | 2022-02-25 08:02 | XRay Report ---
INDICATION: ?edema, h/o chf, hypoxia TECHNIQUE: AP portable semiupright chest x-ray COMPARISON: Previous examinations dated 02/16/2022, 01/25/2022, 03/13/2021 FINDINGS: Previous median sternotomy. There is cardiomegaly, unchanged. Vascularity is prominent consistent pulmonary congestion. Mild interstitial edema is suspected. No focal parenchymal infiltrate. Pleural effusions are not identified on this PA radiograph IMPRESSION: 1. Cardiomegaly and pulmonary congestion. Possible mild interstitial edema 2. No acute focal parenchymal infiltrate Interpreted and Authenticated by: Raghavendra Chun 02/25/22
[2022-02-25] MEDS ORDERED: CALCIUM CARBONATE 500 MG TAB.CHEW CHEWED PRN (08:43)
[2022-02-25] MEDS ORDERED: ALBUMIN HUMAN 12.5 GM/50 ML BAG IV ONE (08:52)
[2022-02-25 08:59] LABS: Appearance,Urine HAZY (Clear); Bilirubin,Urine Negative (Negative); Color,Urine AMBER; Culture Indicated,Urine No; Glucose,Urine (UA) Negative (Negative); Ketones,Urine Negative (Negative); Leukocyte Esterase,Urine Negative /uL (Negative); Nitrate,Urine Negative (Negative); Protein,Urine Negative (Negative); Specific Gravity,Urine 1.014 (1.000-1.035); Urine Blood Negative (Negative); Urobilinogen,Urine Negative
[2022-02-25] MEDS ORDERED: VITAMIN D3 25 MCG TABLET PO SCH (09:00)
[2022-02-25] MEDS ORDERED: glipiZIDE 5 MG TABLET PO SCH (09:00)
[2022-02-25] MEDS: METOPROLOL TARTRATE 25 MG TABLET PO SCH ×2 (09:01→21:04)
[2022-02-25] MEDS: ASPIRIN 81 MG TAB.CHEW PO SCH (09:01)
[2022-02-25] MEDS: SODIUM BICARBONATE 650 MG TABLET PO SCH ×3 (09:01→22:48)
[2022-02-25] MEDS: INSULIN LISPRO 1 UNIT/0.01 ML UNIT SQ SCH ×4 (09:26→22:44)
--- NOTE | 2022-02-25 09:56 | Ultrasound Report ---
INDICATION: transaminitis TECHNIQUE: Grayscale and color flow Doppler spectral imaging COMPARISON: None. FINDINGS: Gallbladder:Previous cholecystectomy Common bile duct:No intra or extrahepatic bile duct dilatation.. Common bile duct measures6 mm Liver:Liver is mildly dense and attenuates sound relative to the right kidney. This may be consistent with mild hepatic steatosis. No focal mass. Liver contour is smooth.. Liver [id number] cm Portal vein:Normal hepatopedal portal venous flow Pancreas:Visualized portions of the pancreas are normal IMPRESSION: 1. Somewhat dense liver consistent with hepatic steatosis. No focal abnormality 2. Previous cholecystectomy Interpreted and Authenticated by: Raghavendra Chun 02/25/22
[2022-02-25 10:20] LABS: Sodium, Urine Random 12 mmol/L; Urea Nitrogen, Urine 462 mg/dL
--- NOTE | 2022-02-25 11:47 | EKG ---
[facility] Test Date: 2022-02-24 Pat Name: Carly Jaime Department: ED Room: Gender: Female [employer]: : 1935 Requested By: Lazaro Bull Order Number: [id number] Reading MD: Jorge A Alanis D.O. Measurements Intervals [place] Rate: 89 P: OK: QRS: 224 QRSD: 175 T: 170 QT: 467 QTc: 569 Interpretive Statements Atrial fibrillation Nonspecific intraventricular conduction delay Abnormal T, consider ischemia, lateral leads Electronically Signed On 02-25-2022 11:47:51 PDT by Jorge A Alanis D.O. /store/M0/[id number]
[2022-02-25] MEDS: LORazepam 0.5 MG TABLET PO PRN (12:18)
[2022-02-25] MEDS ORDERED: 0.9 % SODIUM CHLORIDE 250 ML IV ONE (13:33)
[2022-02-25] MEDS: METOPROLOL TARTRATE 5 MG/5 ML VIAL IV PRN ×2 (18:23→21:04)
--- NOTE | 2022-02-25 18:47 | XRay Report ---
INDICATION: shortness of breath TECHNIQUE: AP portable semiupright chest x-ray COMPARISON: None FINDINGS: Previous median sternotomy. There is cardiomegaly. Prominent vascularity and pulmonary edema pattern. Findings are consistent with congestive heart failure. Clinical correlation and follow-up radiographs are recommended. IMPRESSION: Cardiomegaly and findings consistent with congestive heart failure Interpreted and Authenticated by: Raghavendra Chun 02/25/22
[2022-02-25] MEDS ORDERED: FUROSEMIDE 40 MG/4 ML VIAL IV ONE ×2 (18:58)
--- NOTE | 2022-02-25 19:06 | Event Note ---
Event Note Event Note: Noted to have labored breathing with tachypnea. Blood pressures been low but no change. Heart rate was tachycardic. Chest x-ray with more pulmonary edema than previous x-ray, patient given IV Lopressor and Lasix ordered. Patient transition to PCU status.
[2022-02-25] MEDS ORDERED: ESMOLOL 2,500 MG in PREMIX 1 BAG IV PRN (19:22)
[2022-02-25] MEDS: OPIUM/BELLADONNA ALKALOIDS 30 MG SUPP.RECT PR PRN (20:19)
[2022-02-25] MEDS ORDERED: SODIUM POLYSTYRENE SULFONATE 15 GM/60 ML SUSPENSION PO ONE (20:20)
[2022-02-25] MEDS ORDERED: DIGOXIN 500 MCG/2 ML AMPUL IV ONE ×2 (20:22→20:55)
[2022-02-25] MEDS: DIGOXIN 500 MCG/2 ML AMPUL IV SCH ×2 (21:05→22:45)
[2022-02-25] MEDS: 0.9 % SODIUM CHLORIDE 250 ML IV SCH (21:07)
[2022-02-25] MEDS: SIMVASTATIN 20 MG TABLET PO SCH (22:45)
[2022-02-26] MEDS ORDERED: 0.9 % SODIUM CHLORIDE 250 ML IV ONE (01:40)
[2022-02-26] MEDS: DIGOXIN 500 MCG/2 ML AMPUL IV SCH ×3 (01:50→15:41)
[2022-02-26] MEDS: OPIUM/BELLADONNA ALKALOIDS 30 MG SUPP.RECT PR PRN (01:51)
[2022-02-26] MEDS: traMADol 50 MG TABLET PO PRN (04:48)
[2022-02-26] MEDS: 0.9 % SODIUM CHLORIDE 10 ML SYRINGE IV SCH ×3 (05:51→20:58)
[2022-02-26 06:20] LABS: INR 4.5 (0.9-1.1); Prothrombin Time 45.1 sec (11.9-14.5)
[2022-02-26 07:00] LABS: ALT/SGPT 550 U/L (<40); AST/SGOT 827 U/L (<32); Albumin 3.7 gm/dL (3.2-5.2); Albumin/Globulin Ratio 1.5 (1.0-2.3); Alkaline Phosphatase 110 U/L (39-117); Bilirubin,Direct 0.5 mg/dL (<0.3); Blood Urea Nitrogen 69 mg/dL (8-23); Calcium 8.9 mg/dL (8.6-10.4); Carbon Dioxide 17 mmol/L (22-30); Chloride 97 mmol/L (96-108); Globulin 2.5 gm/dL (2.2-3.7); Glomerular Filtration Rate 19; Glucose 170 mg/dL (70-105); Lactate Dehydrogenase 1169 U/L (135-225); Triglycerides 87 mg/dL (<150); Uric Acid 14.2 mg/dL (2.5-8.0)
--- NOTE | 2022-02-26 07:51 | Internal Med Progress Note ---
SUBJECTIVE Subjective Patient information: Note initiated : 02/26/22 at 7:47 am Service Date, if different from initiated Date: [] Patient: Carly Jaime 86 y/o F admitted on 02/24/22 for Fall, Rt Arm Pain, Decreased ROM. Chief Complaint: [] Interval history: History of present illness: Ms. Jaime is a 86 year old F Presents the ED after a fall last night at her care facility. She was found sitting on the ground. She does not know if she hit her head. 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 She has pain on her right arm and did have x-rays which were unremarkable. No chest pain cough or shortness of breath. No headaches. She did have some upset stomach and nausea last night. Did have diarrhea several days ago. She had [id number] lab testing which showed an INR of 8.4. Creatinine is 1.9 with previous readings in January and early February reading 1.4 and 1.5. Testing mildly elevated at 5.5. Patient was seen on February 17 for shortness of breath was treated for CHF exacerbation and told to take extra Lasix for 5 days. Last INR in our system is from January 25 which shows 4.3. 02/25 Still waiting for urine studies. No complaints overnight. INR 5 this morning. Potassium elevated sodium low. Metabolic acidosis. Upset stomach. Chest x-ray reported with possible mild interstitial edema 02/26 Patient had episode yesterday evening of tachypnea. Chest x-ray did have some or interstitial findings and patient was given Lasix but now considering the might be an aspiration event given what nurses have been noticed when she is eating and drinking. Poor urine output yesterday evening even after Lasix. Give trial of IV fluid today. Kamara for close monitoring of urine output as she is incontinent. Speech therapy evaluation and updated echo. Patient pleasant and no acute distress. Review of Systems: denies headache/fever/chills/nausea/vomiting/chest pain/cough/dyspnea/diarrhea. Otherwise see above. Constitutional Vitals: Vital Signs Temp Pulse Resp BP Pulse Ox 97.1 F 109 H 22 94/76 98 02/26/22 05:55 02/25/22 19:10 02/26/22 02:37 02/26/22 02:03 02/26/22 05:55 Period Temp Pulse Resp BP Sys/Ho Pulse Ox Last 24 Hr 96.5 F-97.8 F 28-112 19-33 56-115/46-93 79-99 Intake and Output 02/25/22 02/26/22 02/26/22 21:59 05:59 13:59 Intake Total 1380 250 Output Total 4 107 Balance 1376 143 Weight 84.822 kg Intake & Output: Intake & Output 02/25/22 02/26/22 02/26/22 21:59 05:59 13:59 Intake Total 1380 250 Output Total 4 107 Balance 1376 143 Weight 84.822 kg Intake: IV 250 250 Sodium Chloride 0.9% 250 ml @ 250 250 100 mls/hr IV BOLUS ONE Rx#: [id number] Oral 1130 Output: Urine Catheter Amount 72 Void Amount 35 # of times incontinent of urine 4 Other: Meal Dinner Percent of Meal Consumed 0% Feeding Ability Independent Urine Appearance Clear Uretheral (Kamara) Clear Clear Urine Color Pale Uretheral (Kamara) Pale Pale Urine Odor Normal Exam: General: Alert, Awake, No acute Distress Eyes/N/T: EOMI, Head/Neck: neck supple, no JVD CV: irreg irreg, 2/6 SM, Pulm: Mild rhonchi, more clear than yesterday, occasional wheeze Abd: soft, nontender, +BS x4 Ext: no clubbing/cyanosis, trace-1+ b/l LE edema Neuro: Alert, no focal deficits, moves all extremities, Skin: warm/dry OBJ DATA Labs CBC & Chem 7: 02/24/22 09:14 02/26/22 05:00 Labs: Abnormal Lab Results 02/26/22 02/26/22 02/25/22 05:00 05:00 08:00 RBC MPV Lymph % (Auto) Lymph # (Auto) [place] # (Auto) PT 45.1 H INR 4.5 H Sodium 131 L POC Potassium Potassium 5.5 H Carbon Dioxide 17 L Anion Gap 17.0 H POC BUN BUN 69 H Creatinine 2.2 H POC Creatinine Glucose 170 H POC Glucose Hemoglobin A1c Uric Acid 14.2 H Phosphorus 6.0 H* Direct Bilirubin 0.5 H GGT 65 H AST 827 H ALT 550 H Lactate Dehydrogenase 1169 H Urine Appearance Hazy A 02/25/22 02/25/2202/25/22 05:13 05:13 05:13 RBC MPV Lymph % (Auto) Lymph # (Auto) [place] # (Auto) PT 48.6 H INR 5.0 H Sodium 131 L POC Potassium Potassium 5.6 H Carbon Dioxide 18 L Anion Gap 17.0 H POC BUN BUN 54 H Creatinine 1.8 H POC Creatinine Glucose 174 H POC Glucose Hemoglobin A1c 7.0 H Uric Acid 12.6 H Phosphorus 5.4 H Direct Bilirubin 0.3 H GGT AST 229 H ALT 150 H Lactate Dehydrogenase 393 H Urine Appearance 02/24/22 02/24/22 02/24/22 12:53 09:14 09:14 RBC MPV Lymph % (Auto) Lymph # (Auto) [place] # (Auto) PT 70.4 H 73.1 H INR 8.0 H* 8.4 H* Sodium POC Potassium 5.5 H Potassium Carbon Dioxide Anion Gap POC BUN 43 H BUN Creatinine POC Creatinine 1.9 H Glucose POC Glucose 183 H Hemoglobin A1c Uric Acid Phosphorus Direct Bilirubin GGT AST ALT Lactate Dehydrogenase Urine Appearance 02/24/22 09:14 RBC 3.55 L MPV 11.0 H Lymph % (Auto) 12.9 L Lymph # (Auto) 1.33 L [place] # (Auto) 1.05 H PT INR Sodium POC Potassium Potassium Carbon Dioxide Anion Gap POC BUN BUN Creatinine POC Creatinine Glucose POC Glucose Hemoglobin A1c Uric Acid Phosphorus Direct Bilirubin GGT AST ALT Lactate Dehydrogenase Urine Appearance Meds: Medications Acetaminophen (Acetaminophen 325 Mg Tablet) 650 mg PO Q6HP PRN; Protocol PRN Reason: Per Pain Protocol/Fever > 101 Albuterol/Ipratropium (Ipratropium/Albuterol 3 Ml Ampul.Neb) 3 ml NEB Q4HP PRN PRN Reason: Shortness Of Breath Last Admin: 02/24/22 16:12 Dose: 3 ml Documented by: Aspirin (Aspirin 81 Mg Tab.Chew) 81 mg PO DAILY [facility] Last Admin: 02/25/22 09:01 Dose: 81 mg Documented by: Belladonna Alkaloids/Opium (Opium/Belladonna Alkaloids 30 Mg Supp.Rect) 30 mg ME Q4HP PRN PRN Reason: BLADDER SPASMS Last Admin: 02/26/22 01:51 Dose: 30 mg Documented by: Calcium Carbonate/Glycine (Calcium Carbonate 500 Mg Tab.Chew) 500 mg CHEWED Q4HP PRN PRN Reason: Dyspepsia Dextrose (Dextrose 50% 50 Ml Vial) 0 ml IV UD PRN PRN Reason: Per Sliding Scale Diagnostic Test (Pha) (Accu-Chek 1 Each Strip) 1 each FS [facility] Last Admin: 02/26/22 07:13 Dose: 1 each Documented by: Glucose (Dextrose 31 Gm Oral.Susp) 15 gm PO PRN PRN PRN Reason: Hypoglycemia Hydroxyzine HCl (Hydroxyzine 25 Mg Tablet) 50 mg PO TIDP PRN PRN Reason: anxiety or insomnia Potassium Chloride 40 meq/ (Dextrose) 520 mls @ 130 mls/hr IV UD PRN PRN Reason: Potassium < 3 Magnesium Sulfate (Magnesium Sulfate) 2 gm in 50 mls @ 50 mls/hr IV UD PRN PRN Reason: Magnesium </= 1.6 Esmolol HCl 2,500 mg/ Premix 250 mls @ 25.447 mls/hr IV .Q9H50M PRN; Protocol PRN Reason: tachy Sodium Chloride (Sodium Chloride 0.9%) 250 mls @ 20 mls/hr IV .[id number] [facility] Last Admin: 02/25/22 21:07 Dose: Not Given Documented by: Insulin Human Lispro (Insulin Lispro 1 Unit/0.01 Ml Unit) 0 unit SQ [facility]; Protocol Last Admin: 02/25/22 22:44 Dose: Not Given Documented by: Lorazepam (Lorazepam 0.5 Mg Tablet) 0.5 mg PO DAILYP PRN PRN Reason: Anxiety Last Admin: 02/25/22 12:18 Dose: 0.5 mg Documented by: Metoclopramide HCl (Metoclopramide 10 Mg/2 Ml Vial) 10 mg IV Q6HP PRN PRN Reason: Nausea And Vomiting Metoprolol Tartrate (Metoprolol Tartrate 5 Mg/5 Ml Vial) 5 mg IV Q2HP PRN PRN Reason: Tachyarrhythmias HR>110 Last Admin: 02/25/22 21:04 Dose: 5 mg Documented by: Metoprolol Tartrate (Metoprolol Tartrate 25 Mg Tablet) 12.5 mg PO BID [facility] Last Admin: 02/25/22 21:04 Dose: 12.5 mg Documented by: Nitroglycerin (Nitroglycerin 0.4 Mg Tab.Subl) 0.4 mg SL Q5M PRN PRN Reason: Chest Pain Ondansetron HCl (Ondansetron 4 Mg/2 Ml Vial) 4 mg IV Q4HP PRN PRN Reason: Nausea And Vomiting Diclofenac Sodium 1 (% Gel) 2 dose TOPICAL TIDP PRN PRN Reason: pain Polyethylene Glycol (Polyethylene Glycol 3350 17 Gm Packet) 17 gm PO DAILYP PRN PRN Reason: Constipation Simvastatin (Simvastatin 20 Mg Tablet) 20 mg PO HS [facility] Last Admin: 02/25/22 22:45 Dose: Not Given Documented by: Sodium Chloride (0.9 % Sodium Chloride 10 Ml Syringe) 10 ml IV Q8 [facility] Last Admin: 02/26/22 05:51 Dose: 10 ml Documented by: Tramadol HCl (Tramadol 50 Mg Tablet) 50 mg PO Q6-8HP PRN PRN Reason: Pain Last Admin: 02/26/22 04:48 Dose: 50 mg Documented by: A/P Narrative A/P Narrative: A: *Fall/generalized weakness: *MARYCHUY on CKD III: possible cardiorenal *Hyperkalemia/hyperphos: *Hyponatremia: *Met acidosis: *Transaminitis 2/2 Fatty liver: *Acute hypoxic respiratory failure: suspect aspiration vs ?CHF(less likely) -on 2L NC *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: *Volume status difficult to determine: seems intravascularly dry *Concern for aspiration: *Afib: on warfarin *INR supratherapeutic: *CAD w/CABG-stent: *HTN/HLD: *DM: A1c 7.0 *Anxiety: *CKD III: *anemia, chronic *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: P: -hold warfarin, then restart to pharm dosing -IVF gentle today, hold diuretics for now -f/u renal fxn, -pt/to -TEDS and elevate legs while in bed -cont BB, hold ACEI for MARYCHUY and low BP -cont ASA/statin -SSI -ST eval -PT/OT -ppx: warfarin held and restart when INR appropriate, pharmacy to dose DNR Time Spent With Patient Time: Total time spent is greater than 50% in coordination of care (as documented) at patient's floor/unit and/or counseling patient: Total time spent with greater than 50% in coordination of care (as documented) at patient's floor/unit and/or counseling patient:: 35 - 50 minutes QUALITY VTE Deep Vein Thrombosis/Pulmonary Embolism Present on Admission: No
[2022-02-26] MEDS ORDERED: LACTATED RINGERS 250 ML IV SCH (08:00)
[2022-02-26] MEDS ORDERED: SODIUM BICARBONATE VIAL 150 MEQ in WATER FOR INJECTION,STERILE 850 ML IV ONE (08:00)
[2022-02-26] MEDS: LACTATED RINGERS 250 ML IV SCH ×2 (08:11→11:54)
[2022-02-26] MEDS: INSULIN LISPRO 1 UNIT/0.01 ML UNIT SQ SCH ×4 (08:46→20:35)
[2022-02-26] MEDS: IPRATROPIUM/ALBUTEROL 3 ML AMPUL.NEB NEB PRN (09:07)
[2022-02-26] MEDS: SODIUM POLYSTYRENE SULFONATE 15 GM/60 ML SUSPENSION PR ONE ×2 (10:14→10:59)
[2022-02-26] MEDS ORDERED: SODIUM POLYSTYRENE SULFONATE 15 GM/60 ML SUSPENSION PO ONE (10:59)
[2022-02-26] MEDS: ASPIRIN 81 MG TAB.CHEW PO SCH (11:44)
[2022-02-26] MEDS: METOPROLOL TARTRATE 25 MG TABLET PO SCH ×3 (11:44→21:12)
[2022-02-26] MEDS: 0.9 % SODIUM CHLORIDE 250 ML IV SCH ×2 (11:54→20:35)
--- NOTE | 2022-02-26 12:37 | EKG ---
[facility] Test Date: 2022-02-25 Pat Name: Carly Jaime Department: [facility] Room: 112 Gender: Female [employer] Supervisor: : [id number] Requested By: Ghassan Martinez Order Number: [id number] Reading MD: Wayne Joy Measurements Intervals [place] Rate: 107 P: MT: QRS: 160 QRSD: 184 T: 10 QT: 415 QTc: 554 Interpretive Statements Atrial fibrillation Nonspecific intraventricular conduction delay Electronically Signed On 02-26-2022 12:37:40 PDT by Wayne Joy /store/[email or web address]/[id number]
[2022-02-26] MEDS: ACETAMINOPHEN 325 MG TABLET PO PRN (15:50)
[2022-02-26] MEDS: LORazepam 0.5 MG TABLET PO PRN (16:21)
[2022-02-26 20:41] LABS: POC Calcium, Ionized 1.13 (1.16-1.32); POC Creatinine 2.3 (0.6-1.2); POC Potassium 3.9 (3.3-5.1)
[2022-02-26] MEDS: SIMVASTATIN 20 MG TABLET PO SCH (20:58)
[2022-02-26] MEDS: MELATONIN 3 MG TABLET PO SCH (20:59)
[2022-02-27] MEDS: traMADol 50 MG TABLET PO PRN ×4 (01:00→20:48)
[2022-02-27] MEDS: hydrOXYzine 25 MG TABLET PO PRN ×2 (03:44→20:47)
[2022-02-27] MEDS: 0.9 % SODIUM CHLORIDE 10 ML SYRINGE IV SCH ×3 (05:35→22:00)
[2022-02-27 07:03] LABS: INR 3.4 (0.9-1.1); Prothrombin Time 36.1 sec (11.9-14.5)
[2022-02-27 07:14] LABS: Digoxin 1.9 ng/mL
[2022-02-27 07:15] LABS: ALT/SGPT 412 U/L (<40); AST/SGOT 331 U/L (<32); Albumin 3.7 gm/dL (3.2-5.2); Albumin/Globulin Ratio 1.5 (1.0-2.3); Alkaline Phosphatase 112 U/L (39-117); Bilirubin,Direct 0.3 mg/dL (<0.3); Bilirubin,Total 0.8 mg/dL (0.1-1.0); Blood Urea Nitrogen 66 mg/dL (8-23); Calcium 8.9 mg/dL (8.6-10.4); Carbon Dioxide 23 mmol/L (22-30); Chloride 98 mmol/L (96-108); Globulin 2.4 gm/dL (2.2-3.7); Glomerular Filtration Rate 25; Glucose 131 mg/dL (70-105); Lactate Dehydrogenase 400 U/L (135-225); Phosphorous 3.8 mg/dL (2.5-4.5); Triglycerides 87 mg/dL (<150); Uric Acid 14.5 mg/dL (2.5-8.0)
[2022-02-27] MEDS: INSULIN LISPRO 1 UNIT/0.01 ML UNIT SQ SCH ×4 (07:47→21:32)
--- NOTE | 2022-02-27 07:49 | Internal Med Progress Note ---
SUBJECTIVE Subjective Patient information: Note initiated : 02/27/22 at 7:40 am Service Date, if different from initiated Date: [] Patient: Carly Jaime 86 y/o F admitted on 02/24/22 for Fall, Rt Arm Pain, Decreased ROM. Chief Complaint: [] Interval history: History of present illness: Ms. Jaime is a 86 year old F Presents the ED after a fall last night at her care facility. She was found sitting on the ground. She does not know if she hit her head. 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 She has pain on her right arm and did have x-rays which were unremarkable. No chest pain cough or shortness of breath. No headaches. She did have some upset stomach and nausea last night. Did have diarrhea several days ago. She had [id number] lab testing which showed an INR of 8.4. Creatinine is 1.9 with previous readings in January and early February reading 1.4 and 1.5. Testing mildly elevated at 5.5. Patient was seen on February 17 for shortness of breath was treated for CHF exacerbation and told to take extra Lasix for 5 days. Last INR in our system is from January 25 which shows 4.3. 02/25 Still waiting for urine studies. No complaints overnight. INR 5 this morning. Potassium elevated sodium low. Metabolic acidosis. Upset stomach. Chest x-ray reported with possible mild interstitial edema 02/26 Patient had episode yesterday evening of tachypnea. Chest x-ray did have some or interstitial findings and patient was given Lasix but now considering the might be an aspiration event given what nurses have been noticed when she is eating and drinking. Poor urine output yesterday evening even after Lasix. Give trial of IV fluid today. Kamara for close monitoring of urine output as she is incontinent. Speech therapy evaluation and updated echo. Patient pleasant and no acute distress. 02/27 Clinically patient responded well to gentle IV fluids and digoxin yesterday. Unfortunately this is a very temporary bandage on a failing heart and multiple ways. Patient has no new complaints. Urine output did improve with IV fluids. Renal function and electrolytes better. Did discuss with patient if she is ever thought about hospice who says she has thought about hospice and feels that may be appropriate. Review of Systems: denies headache/fever/chills/nausea/vomiting/chest pain/cough/dyspnea/diarrhea. Otherwise see above. Constitutional Vitals: Vital Signs Temp Pulse Resp BP Pulse Ox 96.9 F L 64 16 115/64 97 02/27/22 05:42 02/27/22 05:42 02/27/22 07:01 02/27/22 07:01 02/27/22 07:01 Period Temp Pulse Resp BP Sys/Ho Pulse Ox Last 24 Hr 96.5 F-97.9 F 44-82 12-30 85-122/44-86 89-99 Intake and Output 02/26/22 02/27/22 02/27/22 21:59 05:59 13:59 Intake Total 1210 Output Total 250 375 Balance 960 -375 Weight 84.822 kg Intake & Output: Intake & Output 02/26/22 02/27/22 02/27/22 21:59 05:59 13:59 Intake Total 1210 Output Total 250 375 Balance 960 -375 Weight 84.822 kg Intake: IV 850 Sodium Bicarbonate Vial 150 Meq 850 In Water 850 ml @ 100 mls/hr IV Q10H ONE Rx#:[id number] Oral 360 Output: Urine Catheter Amount 250 375 Other: Urine Appearance Clear Clear Uretheral (Akmara) Clear Urine Color Pale Pale Uretheral (Kamara) Pale Urine Odor Normal Exam: General: Alert, Awake, No acute Distress Eyes/N/T: EOMI, Head/Neck: neck supple, CV: irreg irreg, 2/6 SM, Pulm: Mild rhonchi, more clear than yesterday, occasional wheeze Abd: soft, nontender, +BS x4 Ext: no clubbing/cyanosis, trace b/l LE edema Neuro: Alert, no focal deficits, moves all extremities, Skin: warm/dry OBJ DATA Labs CBC & Chem 7: 02/24/22 09:14 02/27/22 05:30 Labs: Abnormal Lab Results 02/27/22 02/27/22 02/26/22 05:30 05:30 20:38 RBC POC Hct 32.0 L MPV Lymph % (Auto) Lymph # (Auto) [place] # (Auto) PT 36.1 H INR 3.4 H Sodium POC Potassium Potassium Carbon Dioxide Anion Gap POC BUN 80 H BUN 66 H Creatinine 1.8 H POC Creatinine 2.3 H Glucose 131 H POC Glucose 135 H Hemoglobin A1c Uric Acid 14.5 H POC WB Ioniz Calcium 1.13 L Phosphorus Direct Bilirubin 0.3 H GGT 63 H AST 331 H ALT 412 H Lactate Dehydrogenase 400 H Urine Appearance 02/26/22 02/26/22 02/25/22 05:00 05:00 08:00 RBC POC Hct MPV Lymph % (Auto) Lymph # (Auto) [place] # (Auto) PT 45.1 H INR 4.5 H Sodium 131 L POC Potassium Potassium 5.5 H Carbon Dioxide 17 L Anion Gap 17.0 H POC BUN BUN 69 H Creatinine 2.2 H POC Creatinine Glucose 170 H POC Glucose Hemoglobin A1c Uric Acid 14.2 H POC WB Ioniz Calcium Phosphorus 6.0 H* Direct Bilirubin 0.5 H GGT 65 H AST 827 H ALT 550 H Lactate Dehydrogenase 1169 H Urine Appearance Hazy A 02/25/22 02/25/22 02/25/22 05:13 05:13 05:13 RBC POC Hct MPV Lymph % (Auto) Lymph # (Auto) [place] # (Auto) PT 48.6 H INR 5.0 H Sodium 131 L POC Potassium Potassium 5.6 H Carbon Dioxide 18 L Anion Gap 17.0 H POC BUN BUN 54 H Creatinine 1.8 H POC Creatinine Glucose 174 H POC Glucose Hemoglobin A1c 7.0 H Uric Acid 12.6 H POC WB Ioniz Calcium Phosphorus 5.4 H Direct Bilirubin 0.3 H GGT AST 229 H ALT 150 H Lactate Dehydrogenase 393 H Urine Appearance 02/24/22 02/24/22 02/24/22 12:53 09:14 09:14 RBC POC Hct MPV Lymph % (Auto) Lymph # (Auto) [place] # (Auto) PT 70.4 H 73.1 H INR 8.0 H* 8.4 H* Sodium POC Potassium 5.5 H Potassium Carbon Dioxide Anion Gap POC BUN 43 H BUN Creatinine POC Creatinine 1.9 H Glucose POC Glucose 183 H Hemoglobin A1c Uric Acid POC WB Ioniz Calcium Phosphorus Direct Bilirubin GGT AST ALT Lactate Dehydrogenase Urine Appearance 02/24/22 09:14 RBC 3.55 L POC Hct MPV 11.0 H Lymph % (Auto) 12.9 L Lymph # (Auto) 1.33 L [place] # (Auto) 1.05 H PT INR Sodium POC Potassium Potassium Carbon Dioxide Anion Gap POC BUN BUN Creatinine POC Creatinine Glucose POC Glucose Hemoglobin A1c Uric Acid POC WB Ioniz Calcium Phosphorus Direct Bilirubin GGT AST ALT Lactate Dehydrogenase Urine Appearance Meds: Medications Acetaminophen (Acetaminophen 325 Mg Tablet) 650 mg PO Q6HP PRN; Protocol PRN Reason: Per Pain Protocol/Fever > 101 Last Admin: 02/26/22 15:50 Dose: 650 mg Documented by: Albuterol/Ipratropium (Ipratropium/Albuterol 3 Ml Ampul.Neb) 3 ml NEB Q4HP PRN PRN Reason: Shortness Of Breath Last Admin: 02/26/22 09:07 Dose: 3 ml Documented by: Aspirin (Aspirin 81 Mg Tab.Chew) 81 mg PO DAILY [facility] Last Admin: 02/26/22 11:44 Dose: 81 mg Documented by: Belladonna Alkaloids/Opium (Opium/Belladonna Alkaloids 30 Mg Supp.Rect) 30 mg MA Q4HP PRN PRN Reason: BLADDER SPASMS Last Admin: 02/26/22 01:51 Dose: 30 mg Documented by: Calcium Carbonate/Glycine (Calcium Carbonate 500 Mg Tab.Chew) 500 mg CHEWED Q4HP PRN PRN Reason: Dyspepsia Dextrose (Dextrose 50% 50 Ml Vial) 0 ml IV UD PRN PRN Reason: Per Sliding Scale Diagnostic Test (Pha) (Accu-Chek 1 Each Strip) 1 each FS [facility] Last Admin: 02/26/22 20:35 Dose: 1 each Documented by: Digoxin (Digoxin 125 Mcg Tablet) 125 mcg PO DAILY@1400 [facility] Glucose (Dextrose 31 Gm Oral.Susp) 15 gm PO PRN PRN PRN Reason: Hypoglycemia Hydroxyzine HCl (Hydroxyzine 25 Mg Tablet) 50 mg PO TIDP PRN PRN Reason: anxiety or insomnia Last Admin: 02/27/22 03:44 Dose: 50 mg Documented by: Potassium Chloride 40 meq/ (Dextrose) 520 mls @ 130 mls/hr IV UD PRN PRN Reason: Potassium < 3 Magnesium Sulfate (Magnesium Sulfate) 2 gm in 50 mls @ 50 mls/hr IV UD PRN PRN Reason: Magnesium </= 1.6 Esmolol HCl 2,500 mg/ Premix 250 mls @ 25.447 mls/hr IV .Q9H50M PRN; Protocol PRN Reason: tachy Sodium Chloride (Sodium Chloride 0.9%) 250 mls @ 20 mls/hr IV .[id number] [facility] Last Admin: 04/14/22 20:35 Dose: Not Given Documented by: Insulin Human Lispro (Insulin Lispro 1 Unit/0.01 Ml Unit) 0 unit SQ [facility]; Protocol Last Admin: 02/26/22 20:35 Dose: Not Given Documented by: Lorazepam (Lorazepam 0.5 Mg Tablet) 0.5 mg PO DAILYP PRN PRN Reason: Anxiety Last Admin: 02/26/22 16:21 Dose: 0.5 mg Documented by: Melatonin (Melatonin 3 Mg Tablet) 6 mg PO QHS [facility] Last Admin: 02/26/22 20:59 Dose: 6 mg Documented by: Metoclopramide HCl (Metoclopramide 10 Mg/2 Ml Vial) 10 mg IV Q6HP PRN PRN Reason: Nausea And Vomiting Metoprolol Tartrate (Metoprolol Tartrate 5 Mg/5 Ml Vial) 5 mg IV Q2HP PRN PRN Reason: Tachyarrhythmias HR>110 Last Admin: 02/25/22 21:04 Dose: 5 mg Documented by: Metoprolol Tartrate (Metoprolol Tartrate 25 Mg Tablet) 12.5 mg PO BID [facility] Last Admin: 02/26/22 21:12 Dose: Not Given Documented by: Nitroglycerin (Nitroglycerin 0.4 Mg Tab.Subl) 0.4 mg SL Q5M PRN PRN Reason: Chest Pain Ondansetron HCl (Ondansetron 4 Mg/2 Ml Vial) 4 mg IV Q4HP PRN PRN Reason: Nausea And Vomiting Diclofenac Sodium 1 (% Gel) 2 dose TOPICAL TIDP PRN PRN Reason: pain Polyethylene Glycol (Polyethylene Glycol 3350 17 Gm Packet) 17 gm PO DAILYP PRN PRN Reason: Constipation Simvastatin (Simvastatin 20 Mg Tablet) 20 mg [address] [facility] Last Admin: 02/26/22 20:58 Dose: 20 mg Documented by: Sodium Chloride (0.9 % Sodium Chloride 10 Ml Syringe) 10 ml IV Q8 [facility] Last Admin: 02/27/22 05:35 Dose: 10 ml Documented by: Tramadol HCl (Tramadol 50 Mg Tablet) 50 mg PO Q6-8HP PRN PRN Reason: Pain Last Admin: 02/27/22 01:00 Dose: 50 mg Documented by: Warfarin Sodium (Warfarin Per Pharmacy) 1 order PO [facility] [place] Narrative A/P Narrative: A: *Fall/generalized weakness: *MARYCHUY on CKD III: most-likely Cardiorenal -better *Cardiorenal syndrome: *Hyperkalemia/hyperphos: Improved *Hyponatremia:Improved *Met acidosis: improved *Transaminitis 2/2 Fatty liver: Ischemic from poor forward flow 2/2 cardiac. *Acute hypoxic respiratory failure: suspect aspiration vs ?CHF(less likely) -on 1-2L NC *h/o systolic(25-30%)/diastolic CHF with RV heart failure & significant valvular dz: -updated echo showing EF 20-25%, severe global hypokinesis of LV, moderately reduced RV systolic fxn, mod-sev MR, probable severe , pulm HTN, diastolic dysfxn. *Volume Depletion: responding well to gentle IVF *Oropharyngeal dysphagia, mild to moderate: *Afib w/RVR: on warfarin *INR supratherapeutic: down to 3.4, no bleeding *CAD w/CABG-stent: *HTN/HLD: *DM: A1c 7.0 *Anxiety: *CKD III: *anemia, chronic *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: *Prognosis guarded: tenuous status P: -hold warfarin, then restart to pharm dosing -responding well to digoxin, hold and f/u levels -cont BB, hold ACEI for MARYCHUY and low BP -IVF gentle today, hold diuretics for now -f/u renal fxn, -pt/to -TEDS and elevate legs while in bed -cont ASA/statin -SSI -dysphagia diet per ST -PT/OT -would recommend hospice eval -ppx: warfarin held and restart when INR appropriate, pharmacy to dose DNR Time Spent With Patient Time: Total time spent is greater than 50% in coordination of care (as documented) at patient's floor/unit and/or counseling patient: Total time spent with greater than 50% in coordination of care (as documented) at patient's floor/unit and/or counseling patient:: 25 - 35 minutes QUALITY VTE Deep Vein Thrombosis/Pulmonary Embolism Present on Admission: No
[2022-02-27] MEDS ORDERED: 0.9 % SODIUM CHLORIDE 250 ML IV ONE (08:39)
[2022-02-27] MEDS: 0.9 % SODIUM CHLORIDE 250 ML IV SCH ×2 (09:00→21:33)
[2022-02-27] MEDS: METOPROLOL TARTRATE 25 MG TABLET PO SCH ×2 (09:00→20:47)
[2022-02-27] MEDS: ASPIRIN 81 MG TAB.CHEW PO SCH (11:34)
[2022-02-27] MEDS: ACETAMINOPHEN 325 MG TABLET PO PRN ×2 (11:35→20:46)
[2022-02-27] MEDS ORDERED: DIGOXIN 125 MCG TABLET PO SCH (14:00)
[2022-02-27] MEDS: LORazepam 0.5 MG TABLET PO PRN (14:12)
--- NOTE | 2022-02-27 19:58 | XRay Report ---
INDICATION: follow up study, sob TECHNIQUE: AP portable upright chest x-ray COMPARISON: Previous examinations dated 02/25/2022, 02/16/2022 FINDINGS: Previous median sternotomy There is cardiomegaly. Vascularity is prominent consistent pulmonary congestion. There is peribronchial thickening and probable interstitial pulmonary edema. There is increased density in left retrocardiac region consistent with volume loss or consolidation. Pneumonia is possible No definite pleural effusion IMPRESSION: 1. Cardiomegaly and probable interstitial pulmonary edema 2. Density in the left retrocardiac region consistent with volume loss or pneumonia 3. No significant interval change since 02/25/2022 Interpreted and Authenticated by: Raghavendra Chun 02/27/22
[2022-02-27] MEDS: SIMVASTATIN 20 MG TABLET PO SCH (20:47)
[2022-02-27] MEDS: MELATONIN 3 MG TABLET PO SCH (21:00)
[2022-02-28] MEDS: hydrOXYzine 25 MG TABLET PO PRN ×2 (00:04→18:54)
[2022-02-28] MEDS: OPIUM/BELLADONNA ALKALOIDS 30 MG SUPP.RECT PR PRN ×2 (00:05→21:31)
[2022-02-28] MEDS: ALPRAZolam 0.5 MG TABLET PO PRN ×2 (01:23→20:18)
[2022-02-28] MEDS ORDERED: ALPRAZolam 0.5 MG TABLET ONE (01:30)
[2022-02-28] MEDS: 0.9 % SODIUM CHLORIDE 10 ML SYRINGE IV SCH ×3 (05:31→21:33)
[2022-02-28 06:28] LABS: Basophils # (Auto) 0.05 K/mcL (0.00-0.30); Basophils % (Auto) 0.7 % (0.0-2.0); Eosinophils # (Auto) 0.19 K/mcL (0.00-0.70); Eosinophils % (Auto) 2.5 % (0.0-7.0); Hematocrit 32.4 % (34.1-44.9); Hemoglobin 10.2 g/dL (11.2-15.7); Lymphocytes # (Auto) 0.66 K/mcL (1.50-4.80); Lymphocytes % (Auto) 8.7 % (15.5-49.0); Mean Cell Volume 102.5 fL (80.0-100.0); Mean Corpuscular HGB Conc 31.5 g/dL (31.0-36.0); Mean Platelet Volume 10.8 fL (7.4-10.4); Monocytes % (Auto) 11.9 % (1.0-12.0); Neutrophils % (Auto) 76.2 % (38.0-78.0); Platelet Count 168 K/mcL (140-440); RBC 3.16 M/mcL (3.59-5.38); Red Cell Distribution Width 14.3 % (11.5-14.5); WBC 7.6 K/mcL (4.5-11.0)
[2022-02-28 06:48] LABS: INR 3.1 (0.9-1.1); Prothrombin Time 33.8 sec (11.9-14.5)
[2022-02-28 06:54] LABS: Digoxin 1.3 ng/mL
[2022-02-28 06:59] LABS: ALT/SGPT 300 U/L (<40); AST/SGOT 122 U/L (<32); Albumin 3.3 gm/dL (3.2-5.2); Albumin/Globulin Ratio 1.3 (1.0-2.3); Alkaline Phosphatase 110 U/L (39-117); Bilirubin,Total 0.8 mg/dL (0.1-1.0); Blood Urea Nitrogen 44 mg/dL (8-23); Calcium 8.6 mg/dL (8.6-10.4); Carbon Dioxide 26 mmol/L (22-30); Chloride 103 mmol/L (96-108); Globulin 2.5 gm/dL (2.2-3.7); Glomerular Filtration Rate 37; Glucose 175 mg/dL (70-105); Phosphorous 2.8 mg/dL (2.5-4.5)
[2022-02-28] MEDS: INSULIN LISPRO 1 UNIT/0.01 ML UNIT SQ SCH ×4 (08:33→20:08)
[2022-02-28] MEDS: ASPIRIN 81 MG TAB.CHEW PO SCH (08:34)
[2022-02-28] MEDS: METOPROLOL TARTRATE 25 MG TABLET PO SCH ×2 (08:34→20:06)
--- NOTE | 2022-02-28 09:01 | Internal Med Progress Note ---
SUBJECTIVE Subjective Patient information: Note initiated : 02/28/22 at 9:01 am Service Date, if different from initiated Date: [] Patient: Carly Jaime 86 y/o F admitted on 02/24/22 for Fall, Rt Arm Pain, Decreased ROM. Chief Complaint: [] Interval history: Ms. Jaime is a 86 year old F Presents the ED after a fall last night at her care facility. She was found sitting on the ground. She does not know if she hit her head. 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 She has pain on her right arm and did have x-rays which were unremarkable. No chest pain cough or shortness of breath. No headaches. She did have some upset stomach and nausea last night. Did have diarrhea several days ago. She had [id number] lab testing which showed an INR of 8.4. Creatinine is 1.9 with previous readings in January and early February reading 1.4 and 1.5. Testing mildly elevated at 5.5. Patient was seen on February 17 for shortness of breath was treated for CHF exacerbation and told to take extra Lasix for 5 days. Last INR in our system is from January 25 which shows 4.3. 02/25 Still waiting for urine studies. No complaints overnight. INR 5 this morning. Potassium elevated sodium low. Metabolic acidosis. Upset stomach. Chest x-ray reported with possible mild interstitial edema 02/26 Patient had episode yesterday evening of tachypnea. Chest x-ray did have some or interstitial findings and patient was given Lasix but now considering the might be an aspiration event given what nurses have been noticed when she is eating and drinking. Poor urine output yesterday evening even after Lasix. Give trial of IV fluid today. Kamara for close monitoring of urine output as she is incontinent. Speech therapy evaluation and updated echo. Patient pleasant and no acute distress. 02/27 Clinically patient responded well to gentle IV fluids and digoxin yesterday. Unfortunately this is a very temporary bandage on a failing heart and multiple ways. Patient has no new complaints. Urine output did improve with IV fluids. Renal function and electrolytes better. Did discuss with patient if she is ever thought about hospice who says she has thought about hospice and feels that may be appropriate. 02/28: Kidney functions back to baseline, serum Cr level 1.3 this morning. INR 3.1. Patient was reported to be restless and pulling out lines last night which resolved after starting Xanax 0.5 mg p.o. twice daily as needed anxiety. Patient is not answering any of my questions this morning so unable to obtain any subjective. DC cardiac monitoring. DC Ativan. Resumed home dose of Lasix since kidney function is back to the baseline. Awaiting family to [facility] hospice facility to make the final decisions where they are all when and where to discharge patient to inpatient hospice service. Constitutional Vitals: Vital Signs Temp Pulse Resp BP Pulse Ox 35.9 C L 76 18 138/97 93 02/28/22 08:32 02/28/22 08:32 02/28/22 04:00 02/28/22 08:32 02/28/22 08:32 Period Temp Pulse Resp BP Sys/Ho Pulse Ox Last 24 Hr 35.9 C-36.6 C 39-104 16-26 96-138/59-97 4-100 Intake and Output 02/27/22 02/28/22 02/28/22 21:59 05:59 13:59 Intake Total 250 100 Output Total 160 350 Balance 90 -250 Weight 84.822 kg Intake & Output: Intake & Output 02/27/22 02/28/22 02/28/22 21:59 05:59 13:59 Intake Total 250 100 Output Total 160 350 Balance 90 -250 Weight 84.822 kg Intake: IV 250 Sodium Chloride 0.9% 250 ml @ 250 50 mls/hr IV .Q5H ONE Rx#: [id number] Oral 100 Output: Urine Catheter Amount 160 350 Other: Urine Appearance Cloudy Clear Uretheral (Kamara) Clear Urine Color Bright Yellow Light Luna Uretheral (Kamara) Pale Urine Odor Normal Strong Stool Size Small Stool Consistency Watery General appearance: disheveled, no acute distress and obese; no cooperative Head Head exam: Present atraumatic and normal inspection Eye Eye exam: Present normal appearance ENT ENT exam: Present mucous membranes moist, normal exam and normal external ear exam Additional comments: Nasal cannula in place Neck Neck exam: Present normal inspection Respiratory Respiratory exam: Present rhonchi and wheezes Cardiovascular Cardiovascular exam: Present irregular rhythm GI/Abdominal GI/Abdominal exam: Present normal bowel sounds Additional comments: Kamara catheter in place Back Exam Back exam: Present normal inspection Neurological Exam Neurological exam: Present alert; Absent oriented X3 Additional comments: unable to assess orientation since patient is nonverbal Skin Skin exam: Present intact and warm OBJ DATA Labs CBC & Chem 7: 02/28/22 05:08 02/28/22 05:08 Labs: Abnormal Lab Results 02/28/22 02/28/22 02/28/22 05:08 05:08 05:08 RBC 3.16 L Hgb 10.2 L Hct 32.4 L POC Hct MCV 102.5 H MPV 10.8 H Lymph % (Auto) 8.7 L Lymph # (Auto) 0.66 L PT 33.8 H INR 3.1 H Sodium Potassium Carbon Dioxide Anion Gap POC BUN BUN 44 H Creatinine 1.3 H POC Creatinine Glucose 175 H POC Glucose Uric Acid POC WB Ioniz Calcium Phosphorus Direct Bilirubin GGT AST 122 H ALT 300 H Lactate Dehydrogenase Total Protein 5.8 L 02/27/22 02/27/22 02/26/22 05:30 05:30 20:38 RBC Hgb Hct POC Hct 32.0 L MCV MPV Lymph % (Auto) Lymph # (Auto) PT 36.1 H INR 3.4 H Sodium Potassium Carbon Dioxide Anion Gap POC BUN 80 H BUN 66 H Creatinine 1.8 H POC Creatinine 2.3 H Glucose 131 H POC Glucose 135 H Uric Acid 14.5 H POC WB Ioniz Calcium 1.13 L Phosphorus Direct Bilirubin 0.3 H GGT 63 H AST 331 H ALT 412 H Lactate Dehydrogenase 400 H Total Protein 02/26/22 02/26/22 05:00 05:00 RBC Hgb Hct POC Hct MCV MPV Lymph % (Auto) Lymph # (Auto) PT 45.1 H INR 4.5 H Sodium 131 L Potassium 5.5 H Carbon Dioxide 17 L Anion Gap 17.0 H POC BUN BUN 69 H Creatinine 2.2 H POC Creatinine Glucose 170 H POC Glucose Uric Acid 14.2 H POC WB Ioniz Calcium Phosphorus 6.0 H* Direct Bilirubin 0.5 H GGT 65 H AST 827 H ALT 550 H Lactate Dehydrogenase 1169 H Total Protein Meds: Medications Acetaminophen (Acetaminophen 325 Mg Tablet) 650 mg PO Q6HP PRN; Protocol PRN Reason: Per Pain Protocol/Fever > 101 Last Admin: 02/27/22 20:46 Dose: 650 mg Documented by: Albuterol/Ipratropium (Ipratropium/Albuterol 3 Ml Ampul.Neb) 3 ml NEB Q4HP PRN PRN Reason: Shortness Of Breath Last Admin: 02/26/22 09:07 Dose: 3 ml Documented by: Alprazolam (Alprazolam 0.5 Mg Tablet) 0.5 mg PO BIDP PRN PRN Reason: Give Xanax 0.5 mg BID PRN PO Last Admin: 02/28/22 01:23 Dose: 0.5 mg Documented by: Aspirin (Aspirin 81 Mg Tab.Chew) 81 mg PO DAILY [facility] Last Admin: 02/28/22 08:34 Dose: 81 mg Documented by: Belladonna Alkaloids/Opium (Opium/Belladonna Alkaloids 30 Mg Supp.Rect) 30 mg LA Q4HP PRN PRN Reason: BLADDER SPASMS Last Admin: 02/28/22 00:05 Dose: 30 mg Documented by: Calcium Carbonate/Glycine (Calcium Carbonate 500 Mg Tab.Chew) 500 mg CHEWED Q4HP PRN PRN Reason: Dyspepsia Dextrose (Dextrose 50% 50 Ml Vial) 0 ml IV UD PRN PRN Reason: Per Sliding Scale Diagnostic Test (Pha) (Accu-Chek 1 Each Strip) 1 each FS [facility] Last Admin: 02/28/22 07:10 Dose: 1 each Documented by: Digoxin (Digoxin 125 Mcg Tablet) 125 mcg PO DAILY@1400 JAMIN Glucose (Dextrose 31 Gm Oral.Susp) 15 gm PO PRN PRN PRN Reason: Hypoglycemia Hydroxyzine HCl (Hydroxyzine 25 Mg Tablet) 50 mg PO TIDP PRN PRN Reason: anxiety or insomnia Last Admin: 02/28/22 00:04 Dose: 50 mg Documented by: Potassium Chloride 40 meq/ (Dextrose) 520 mls @ 130 mls/hr IV UD PRN PRN Reason: Potassium < 3 Magnesium Sulfate (Magnesium Sulfate) 2 gm in 50 mls @ 50 mls/hr IV UD PRN PRN Reason: Magnesium </= 1.6 Insulin Human Lispro (Insulin Lispro 1 Unit/0.01 Ml Unit) 0 unit SQ [facility]; Protocol Last Admin: 02/28/22 08:33 Dose: 2 units Documented by: Melatonin (Melatonin 3 Mg Tablet) 6 mg PO QHS [facility] Last Admin: 02/27/22 21:00 Dose: 6 mg Documented by: Metoclopramide HCl (Metoclopramide 10 Mg/2 Ml Vial) 10 mg IV Q6HP PRN PRN Reason: Nausea And Vomiting Metoprolol Tartrate (Metoprolol Tartrate 5 Mg/5 Ml Vial) 5 mg IV Q2HP PRN PRN Reason: Tachyarrhythmias HR>110 Last Admin: 02/25/22 21:04 Dose: 5 mg Documented by: Metoprolol Tartrate (Metoprolol Tartrate 25 Mg Tablet) 12.5 mg PO BID [facility] Last Admin: 02/28/22 08:34 Dose: 12.5 mg Documented by: Nitroglycerin (Nitroglycerin 0.4 Mg Tab.Subl) 0.4 mg SL Q5M PRN PRN Reason: Chest Pain Ondansetron HCl (Ondansetron 4 Mg/2 Ml Vial) 4 mg IV Q4HP PRN PRN Reason: Nausea And Vomiting Diclofenac Sodium 1 (% Gel) 2 dose TOPICAL TIDP PRN PRN Reason: pain Polyethylene Glycol (Polyethylene Glycol 3350 17 Gm Packet) 17 gm PO DAILYP PRN PRN Reason: Constipation Simvastatin (Simvastatin 20 Mg Tablet) 20 mg PO HS [facility] Last Admin: 02/27/22 20:47 Dose: 20 mg Documented by: Sodium Chloride (0.9 % Sodium Chloride 10 Ml Syringe) 10 ml IV Q8 [facility] Last Admin: 02/28/22 05:31 Dose: 10 ml Documented by: Tramadol HCl (Tramadol 50 Mg Tablet) 50 mg PO Q6-8HP PRN PRN Reason: Pain Last Admin: 02/27/22 20:48 Dose: 50 mg Documented by: Warfarin Sodium (Warfarin Per Pharmacy) 1 order PO [facility] [place] A/P Assessment and plan (1) Atrial fibrillation: Status: Acute (2) Supratherapeutic INR: Status: Acute (3) MARYCHUY (acute kidney injury): Status: Acute (4) Diabetes mellitus, type II: Status: Chronic (5) Anemia: Status: Chronic (6) Hyperlipidemia: Status: Chronic (7) History of coronary artery stent placement: Status: Chronic (8) Chronic diastolic heart failure: Status: Chronic (9) Dyspnea: Status: Acute (10) Renovascular hypertension: Status: Chronic Narrative A/P Narrative: Assessment and Plans: 1. Overall physical deconditioning due to multiple medical comorbidities: Inpatient med surg Okay to d/c cardiac monitoring Awaiting family to tour hospice facility to make the final decisions where they are all when and where to discharge patient to inpatient hospice service 2. Chronic diastolic CHF: Supplemental oxygen therapy, currently at 1 L/min Resumed home dose of Lasix since kidney function is back to the baseline Metoprolol tartrate 12.5 mg p.o. twice daily 3. Permanent atrial fibrillation's with supratherapeutic INR level: Daily INR check, goal INR level between 2-3, currently at 3.1 Resume Coumadin when INR level is therapeutic, with pharmacy assistance Metoprolol tartrate 12.5 mg p.o. twice daily Digoxin 4. T2DM: HgA1c Hold oral hypoglycemics SSI AC HS Accu Chek AC HS Hypoglycemia protocol Diabetic diet 5. Anemia, macrocytic: cbc w/ auto diff in the morning to trend H/H 6. Chronic kidney disease, recently resolved acute kidney injury likely due to cardiorenal syndrome: Avoid nephrotoxic agent Resumed home dose of Lasix since kidney function is back to the baseline Daily CMP to trend kidney functions 7. Dyslipidemia: Continue statin therapy 8. Essential HTN: Resumed home dose of Lasix since kidney function is back to the baseline Metoprolol tartrate 12.5 mg p.o. twice daily GI ppx: not currently indicated DVT ppx: Resume Coumadin when INR level is therapeutic, with pharmacy assistance Code status: DNI DNR Prognosis: Poor Disposition: inpatient med surg; Awaiting family to [facility] hospice facility to make the final decisions where they are all when and where to discharge patient to inpatient hospice service Time Spent With Patient Time: Total time spent is greater than 50% in coordination of care (as documented) at patient's floor/unit and/or counseling patient: Total time spent with greater than 50% in coordination of care (as documented) at patient's floor/unit and/or counseling patient:: 25 - 35 minutes QUALITY VTE Deep Vein Thrombosis/Pulmonary Embolism Present on Admission: No
[2022-02-28] MEDS: ACETAMINOPHEN 325 MG TABLET PO PRN (10:28)
[2022-02-28] MEDS: FUROSEMIDE 80 MG TABLET PO SCH (10:31)
[2022-02-28] MEDS: traMADol 50 MG TABLET PO PRN ×3 (13:52→20:07)
[2022-02-28] MEDS ORDERED: WARFARIN 2 MG TABLET PO ONE (14:00)
[2022-02-28] MEDS ORDERED: DIGOXIN 125 MCG TABLET PO SCH (14:00)
[2022-02-28] MEDS ORDERED: morphine 2 MG/ML VIAL IV ONE (14:09)
[2022-02-28] MEDS: morphine 2 MG/ML VIAL IV PRN ×2 (19:10→23:23)
[2022-02-28] MEDS: MELATONIN 3 MG TABLET PO SCH (20:07)
[2022-02-28] MEDS: SIMVASTATIN 20 MG TABLET PO SCH (20:07)
[2022-02-28] MEDS ORDERED: LIDOCAINE PATCH TOPICAL SCH (21:37)
[2022-03-01] MEDS: 0.9 % SODIUM CHLORIDE 10 ML SYRINGE IV SCH ×2 (06:07→15:31)
[2022-03-01 06:54] LABS: Basophils # (Auto) 0.02 K/mcL (0.00-0.30); Basophils % (Auto) 0.3 % (0.0-2.0); Eosinophils # (Auto) 0.17 K/mcL (0.00-0.70); Eosinophils % (Auto) 2.2 % (0.0-7.0); Hematocrit 36.5 % (34.1-44.9); Hemoglobin 11.3 g/dL (11.2-15.7); Lymphocytes # (Auto) 0.99 K/mcL (1.50-4.80); Lymphocytes % (Auto) 12.8 % (15.5-49.0); Mean Platelet Volume 10.8 fL (7.4-10.4); Monocytes # (Auto) 1.08 K/mcL (0.10-0.90); Neutrophils % (Auto) 70.7 % (38.0-78.0); Platelet Count 176 K/mcL (140-440); RBC 3.51 M/mcL (3.59-5.38); Red Cell Distribution Width 15.2 % (11.5-14.5); WBC 7.7 K/mcL (4.5-11.0)
[2022-03-01 07:01] LABS: ALT/SGPT 259 U/L (<40); AST/SGOT 82 U/L (<32); Albumin 3.4 gm/dL (3.2-5.2); Albumin/Globulin Ratio 1.2 (1.0-2.3); Alkaline Phosphatase 116 U/L (39-117); Bilirubin,Total 0.8 mg/dL (0.1-1.0); Blood Urea Nitrogen 40 mg/dL (8-23); Calcium 8.9 mg/dL (8.6-10.4); Carbon Dioxide 31 mmol/L (22-30); Chloride 106 mmol/L (96-108); Globulin 2.8 gm/dL (2.2-3.7); Glomerular Filtration Rate 40; Glucose 138 mg/dL (70-105); Phosphorous 3.5 mg/dL (2.5-4.5)
[2022-03-01 07:21] LABS: INR 2.7 (0.9-1.1)
[2022-03-01] MEDS: INSULIN LISPRO 1 UNIT/0.01 ML UNIT SQ SCH ×2 (08:40→11:59)
[2022-03-01] MEDS: METOPROLOL TARTRATE 25 MG TABLET PO SCH (09:55)
[2022-03-01] MEDS: ASPIRIN 81 MG TAB.CHEW PO SCH (09:55)
[2022-03-01] MEDS: FUROSEMIDE 80 MG TABLET PO SCH (09:55)
--- NOTE | 2022-03-01 09:59 | Internal Med Progress Note ---
SUBJECTIVE Subjective Patient information: Note initiated : 03/01/22 at 9:55 am Service Date, if different from initiated Date: [] Patient: Carly Jaime 86 y/o F admitted on 02/24/22 for Fall, Rt Arm Pain, Decreased ROM. Chief Complaint: [] Interval history: Ms. Jaime is a 86 year old F Presents the ED after a fall last night at her care facility. She was found sitting on the ground. She does not know if she hit her head. 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 She has pain on her right arm and did have x-rays which were unremarkable. No chest pain cough or shortness of breath. No headaches. She did have some upset stomach and nausea last night. Did have diarrhea several days ago. She had [id number] lab testing which showed an INR of 8.4. Creatinine is 1.9 with previous readings in January and early February reading 1.4 and 1.5. Testing mildly elevated at 5.5. Patient was seen on February 17 for shortness of breath was treated for CHF exacerbation and told to take extra Lasix for 5 days. Last INR in our system is from January 25 which shows 4.3. 02/25 Still waiting for urine studies. No complaints overnight. INR 5 this morning. Potassium elevated sodium low. Metabolic acidosis. Upset stomach. Chest x-ray reported with possible mild interstitial edema 02/26 Patient had episode yesterday evening of tachypnea. Chest x-ray did have some or interstitial findings and patient was given Lasix but now considering the might be an aspiration event given what nurses have been noticed when she is eating and drinking. Poor urine output yesterday evening even after Lasix. Give trial of IV fluid today. Kamara for close monitoring of urine output as she is incontinent. Speech therapy evaluation and updated echo. Patient pleasant and no acute distress. 02/27 Clinically patient responded well to gentle IV fluids and digoxin yesterday. Unfortunately this is a very temporary bandage on a failing heart and multiple ways. Patient has no new complaints. Urine output did improve with IV fluids. Renal function and electrolytes better. Did discuss with patient if she is ever thought about hospice who says she has thought about hospice and feels that may be appropriate. 02/28: Kidney functions back to baseline, serum Cr level 1.3 this morning. INR 3.1. Patient was reported to be restless and pulling out lines last night which resolved after starting Xanax 0.5 mg p.o. twice daily as needed anxiety. Patient is not answering any of my questions this morning so unable to obtain any subjective. DC cardiac monitoring. DC Ativan. Resumed home dose of Lasix since kidney function is back to the baseline. Awaiting family to tour hospice facility to make the final decisions where they are all when and where to discharge patient to inpatient hospice service. 03/01: Patient's oxygen is requirement jumped to 8 L/min as of this morning. She also become very lethargic even comatose. Not responding to voice or even pain stimuli. INR 2.7. Repeat chest x-ray this morning preliminary read by myself showing worsening degree of pulmonary edema. No focal infiltrates as I can see. Presumed diuretics. We have called family to come to the hospital and will carry a prognosis/goals of care conference to determine the overall goals of care. The current plan is to discharge patient to inpatient hospice tomorrow. Constitutional Vitals: Vital Signs Temp Pulse Resp BP Pulse Ox 35.9 C L 83 20 105/73 96 03/01/22 08:04 03/01/22 08:04 03/01/22 08:04 03/01/22 08:04 03/01/22 08:04 Period Temp Pulse Resp BP Sys/Ho Pulse Ox Last 24 Hr 35.9 C-36.6 C 70-89 12-20 99-140/73-97 90-97 Intake and Output 02/28/22 03/01/22 03/01/22 21:59 05:59 13:59 Intake Total 120 Output Total 650 600 Balance -530 -600 Weight 81.284 kg Intake & Output: Intake & Output 02/28/22 03/01/22 03/01/22 21:59 05:59 13:59 Intake Total 120 Output Total 650 600 Balance -530 -600 Weight 81.284 kg Intake: Nourishment/Supplement quantity 120 (ml) Output: Urine Catheter Amount 650 600 Other: Meal Dinner Percent of Meal Consumed 10 Feeding Ability Total Assistance Nourishment/Supplement name Glucerna Urine Appearance Clear Clear Uretheral (Kamara) Clear Urine Color Bright Yellow Dark Yellow Uretheral (Kamara) Bright Yellow Urine Odor Strong Uretheral (Kamara) Strong General appearance: average body habitus and no acute distress Exam: comatose Head Head exam: Present atraumatic and normal inspection Eye Eye exam: Present normal appearance ENT ENT exam: Present mucous membranes moist, normal exam and normal external ear exam Additional comments: Nasal cannula in place Neck Neck exam: Present normal inspection Respiratory Respiratory exam: Present decreased breath sounds and rhonchi Cardiovascular Cardiovascular exam: Present irregular rhythm GI/Abdominal GI/Abdominal exam: Present normal bowel sounds Additional comments: Kamara catheter in place Back Exam Back exam: Present normal inspection Neurological Exam Neurological exam: Present alert and oriented X3 Skin Skin exam: Present intact and warm OBJ DATA Labs CBC & Chem 7: 03/01/22 05:00 03/01/22 05:00 Labs: Abnormal Lab Results 03/01/22 03/01/22 03/01/22 05:00 05:00 05:00 RBC 3.51 L Hgb Hct POC Hct MCV 104.0 H RDW 15.2 H MPV 10.8 H Lymph % (Auto) 12.8 L Archuleta % (Auto) 14.0 H Lymph # (Auto) 0.99 L Arch[place] # (Auto) 1.08 H PT 30.0 H INR 2.7 H Sodium 146 H Carbon Dioxide 31 H POC BUN BUN 40 H Creatinine 1.2 H POC Creatinine Glucose 138 H POC Glucose Uric Acid POC WB Ioniz Calcium Direct Bilirubin GGT AST 82 H ALT 259 H Lactate Dehydrogenase Total Protein 02/28/22 02/28/22 02/28/22 05:08 05:08 05:08 RBC 3.16 L Hgb 10.2 L Hct 32.4 L POC Hct MCV 102.5 H RDW MPV 10.8 H Lymph % (Auto) 8.7 L Archuleta % (Auto) Lymph # (Auto) 0.66 L [place] # (Auto) PT 33.8 H INR 3.1 H Sodium Carbon Dioxide POC BUN BUN 44 H Creatinine 1.3 H POC Creatinine Glucose 175 H POC Glucose Uric Acid POC WB Ioniz Calcium Direct Bilirubin GGT AST 122 H ALT 300 H Lactate Dehydrogenase Total Protein 5.8 L 02/27/22 02/27/22 02/26/22 05:30 05:30 20:38 RBC Hgb Hct POC Hct 32.0 L MCV RDW MPV Lymph % (Auto) Archuleta % (Auto) Lymph # (Auto) Archuleta # (Auto) PT 36.1 H INR 3.4 H Sodium Carbon Dioxide POC BUN 80 H BUN 66 H Creatinine 1.8 H POC Creatinine 2.3 H Glucose 131 H POC Glucose 135 H Uric Acid 14.5 H POC WB Ioniz Calcium 1.13 L Direct Bilirubin 0.3 H GGT 63 H AST 331 H ALT 412 H Lactate Dehydrogenase 400 H Total Protein Meds: Medications Acetaminophen (Acetaminophen 325 Mg Tablet) 650 mg PO Q6HP PRN; Protocol PRN Reason: Per Pain Protocol/Fever > 101 Last Admin: 02/28/22 10:28 Dose: 650 mg Documented by: Albuterol/Ipratropium (Ipratropium/Albuterol 3 Ml Ampul.Neb) 3 ml NEB Q4HP PRN PRN Reason: Shortness Of Breath Last Admin: 02/26/22 09:07 Dose: 3 ml Documented by: Alprazolam (Alprazolam 0.5 Mg Tablet) 0.5 mg PO BIDP PRN PRN Reason: Give Xanax 0.5 mg BID PRN PO Last Admin: 02/28/22 20:18 Dose: 0.5 mg Documented by: Aspirin (Aspirin 81 Mg Tab.Chew) 81 mg PO DAILY [facility] Last Admin: 02/28/22 08:34 Dose: 81 mg Documented by: Belladonna Alkaloids/Opium (Opium/Belladonna Alkaloids 30 Mg Supp.Rect) 30 mg OK Q4HP PRN PRN Reason: BLADDER SPASMS Last Admin: 02/28/22 21:31 Dose: 30 mg Documented by: Calcium Carbonate/Glycine (Calcium Carbonate 500 Mg Tab.Chew) 500 mg CHEWED Q4HP PRN PRN Reason: Dyspepsia Dextrose (Dextrose 50% 50 Ml Vial) 0 ml IV UD PRN PRN Reason: Per Sliding Scale Diagnostic Test (Pha) (Accu-Chek 1 Each Strip) 1 each FS ACHS [facility] Last Admin: 03/01/22 08:28 Dose: 1 each Documented by: Digoxin (Digoxin 125 Mcg Tablet) 125 mcg PO DAILY@1400 [facility] Last Admin: 02/28/22 13:00 Dose: Not Given Documented by: Furosemide (Furosemide 80 Mg Tablet) 80 mg PO QAM [facility] Last Admin: 02/28/22 10:31 Dose: 80 mg Documented by: Glucose (Dextrose 31 Gm Oral.Susp) 15 gm PO PRN PRN PRN Reason: Hypoglycemia Hydroxyzine HCl (Hydroxyzine 25 Mg Tablet) 50 mg PO TIDP PRN PRN Reason: anxiety or insomnia Last Admin: 02/28/22 18:54 Dose: 50 mg Documented by: Potassium Chloride 40 meq/ (Dextrose) 520 mls @ 130 mls/hr IV UD PRN PRN Reason: Potassium < 3 Magnesium Sulfate (Magnesium Sulfate) 2 gm in 50 mls @ 50 mls/hr IV UD PRN PRN Reason: Magnesium </= 1.6 Insulin Human Lispro (Insulin Lispro 1 Unit/0.01 Ml Unit) 0 unit SQ [facility]; Protocol Last Admin: 03/01/22 08:40 Dose: Not Given Documented by: Lidocaine (Lidocaine Patch) 1 patch TOPICAL [facility] Last Admin: 02/28/22 23:21 Dose: 1 patch Documented by: Melatonin (Melatonin 3 Mg Tablet) 6 mg PO QHS [facility] Last Admin: 02/28/22 20:07 Dose: 6 mg Documented by: Metoclopramide HCl (Metoclopramide 10 Mg/2 Ml Vial) 10 mg IV Q6HP PRN PRN Reason: Nausea And Vomiting Metoprolol Tartrate (Metoprolol Tartrate 5 Mg/5 Ml Vial) 5 mg IV Q2HP PRN PRN Reason: Tachyarrhythmias HR>110 Last Admin: 02/25/22 21:04 Dose: 5 mg Documented by: Metoprolol Tartrate (Metoprolol Tartrate 25 Mg Tablet) 12.5 mg PO BID [facility] Last Admin: 02/28/22 20:06 Dose: 12.5 mg Documented by: Morphine Sulfate (Morphine 2 Mg/Ml Vial) 2 mg IV Q4HP PRN; Protocol PRN Reason: Per Pain Protocol Last Admin: 02/28/22 23:23 Dose: 2 mg Documented by: Nitroglycerin (Nitroglycerin 0.4 Mg Tab.Subl) 0.4 mg SL Q5M PRN PRN Reason: Chest Pain Ondansetron HCl (Ondansetron 4 Mg/2 Ml Vial) 4 mg IV Q4HP PRN PRN Reason: Nausea And Vomiting Diclofenac Sodium 1 (% Gel) 2 dose TOPICAL TIDP PRN PRN Reason: pain Polyethylene Glycol (Polyethylene Glycol 3350 17 Gm Packet) 17 gm PO DAILYP PRN PRN Reason: Constipation Simvastatin (Simvastatin 20 Mg Tablet) 20 mg PO [facility] Last Admin: 02/28/22 20:07 Dose: 20 mg Documented by: Sodium Chloride (0.9 % Sodium Chloride 10 Ml Syringe) 10 ml IV Q8 [facility] Last Admin: 03/01/22 06:07 Dose: 10 ml Documented by: Tramadol HCl (Tramadol 50 Mg Tablet) 50 mg PO Q6-8HP PRN PRN Reason: Pain Last Admin: 02/28/22 20:07 Dose: 50 mg Documented by: Warfarin Sodium (Warfarin Per Pharmacy) 1 order PO UD [facility] A/P Assessment and plan (1) Atrial fibrillation: Status: Acute (2) Supratherapeutic INR: Status: Acute (3) MARYCHUY (acute kidney injury): Status: Acute (4) Diabetes mellitus, type II: Status: Chronic (5) Anemia: Status: Chronic (6) Hyperlipidemia: Status: Chronic (7) History of coronary artery stent placement: Status: Chronic (8) Chronic diastolic heart failure: Status: Chronic (9) Dyspnea: Status: Acute (10) Renovascular hypertension: Status: Chronic Narrative A/P Narrative: Assessment and Plans: 1. Overall physical deconditioning due to multiple medical comorbidities: Inpatient med surg Pending family conference to determine goal of care; current plan is to discharge to inpatient hospice on Wednesday03/02/22 2. Chronic diastolic CHF, worsening dyspnea with increasing oxygen requirement: Supplemental oxygen therapy, currently at 8 L/min Resumed home dose of Lasix since kidney function is back to the baseline, Repeat chest x-ray this morning preliminary read by myself showing worsening degree of pulmonary edema. No focal infiltrates as I can see. Metoprolol tartrate 12.5 mg p.o. twice daily 3. Permanent atrial fibrillation's with supratherapeutic INR level: Daily INR check, goal INR level between 2-3, currently at 2.7-->resume Coumadin Metoprolol tartrate 12.5 mg p.o. twice daily Digoxin 4. T2DM: HgA1c Hold oral hypoglycemics SSI AC HS Accu Chek AC Hypoglycemia protocol Diabetic diet 5. Anemia, macrocytic: cbc w/ auto diff in the morning to trend H/H 6. Chronic kidney disease, recently resolved acute kidney injury likely due to cardiorenal syndrome: Avoid nephrotoxic agent Resumed home dose of Lasix since kidney function is back to the baseline Daily CMP to trend kidney functions 7. Dyslipidemia: Continue statin therapy 8. Essential HTN: Resumed home dose of Lasix since kidney function is back to the baseline Metoprolol tartrate 12.5 mg p.o. twice daily GI ppx: not currently indicated DVT ppx: Coumadin Code status: DNI DNR Prognosis: Poor Disposition: inpatient med surg; Pending family conference to determine goal of care; current plan is to discharge to inpatient hospice on Wednesday03/02/22 Time Spent With Patient Time: Total time spent is greater than 50% in coordination of care (as documented) at patient's floor/unit and/or counseling patient: Total time spent with greater than 50% in coordination of care (as documented) at patient's floor/unit and/or counseling patient:: 25 - 35 minutes QUALITY VTE Deep Vein Thrombosis/Pulmonary Embolism Present on Admission: No
--- NOTE | 2022-03-01 10:16 | XRay Report ---
INDICATION: shortness of breath TECHNIQUE: AP portable upright chest x-ray COMPARISON: Previous chest x-rays dated 02/27/2022, 02/25/2022, 02/16/2022 FINDINGS:Previous median sternotomy Lungs:Diffuse left lung infiltrates are worse since 02/27/2022 and 02/25/2022. Appearance is consistent with pneumonia. Heart, vascular:Persistent cardiomegaly. Vascularity is prominent and there is bronchial wall thickening. Appearance remains consistent with underlying congestive heart failure. Mediastinum, lucian:No mediastinal widening. No hilar mass Pleura:Left pleural fluid is possible but not well visualized on this AP radiograph Skeletal:Negative. IMPRESSION: 1. Markedly increased left lung infiltrates consistent with pneumonia 2. Probable underlying congestive heart failure Interpreted and Authenticated by: Raghavendra Chun 03/01/22
[2022-03-01] MEDS ORDERED: PIPERACILLIN SODIUM/TAZOBACTAM 3.375 GM in DEXTROSE 5% IN WATER 50 ML IV SCH ×2 (12:00→22:00)
[2022-03-01] MEDS ORDERED: SCOPOLAMINE 1 PATCH PATCH TOPICAL SCH (12:45)
[2022-03-01] MEDS ORDERED: LORazepam 2 MG/ML VIAL IV PRN (15:56)
[2022-03-01] MEDS ORDERED: FUROSEMIDE 20 MG/2 ML VIAL IV SCH (16:00)
--- NOTE | 2022-03-01 18:44 | Death Note ---
Discharge Sum: Prov Provider Patient information: Note initiated : 03/01/22 at 6:43 pm Service Date, if different from initiated Date: [] Patient: Carly Jaime 86 y/o F admitted on 02/24/22 for Fall, Rt Arm Pain, Decreased ROM. Chief Complaint: [] Primary care physician: NESHA Up Attending physician on admission: Ghassan Martinez Consults: 02/24/22 Consult to Physician [CONS] Stat Comment: Consulting Provider: Ghassan Martinez Reason For Exam: Physician to Consult Pronouncing clinician: Shane Krishnamurthy Discharge Sum: Diag Contributing Factors (1) Atrial fibrillation: (2) Supratherapeutic INR: (3) MARYCHUY (acute kidney injury): (4) Diabetes mellitus, type II: (5) Anemia: (6) Hyperlipidemia: (7) History of coronary artery stent placement: (8) Chronic diastolic heart failure: (9) Dyspnea: (10) Renovascular hypertension: Discharge Sum: Summary Date and Time Date of admission: 02/24/22 12:36 Date of : 03/01/22 Time of : 18:44 Additional Data Confirmation of as documented by pronouncing clinician: no pulse, no respirations, no heart sounds and pupils fixed and dilated Attending/PCP notified?: Yes Attending physician: Ghassan Martinez Was code activated?: No Autopsy requested?: No Hospice patient?: Yes
== END 2022-03-01 18:35 | disposition expired | DRG 308 ==
LOC: ED 08:20 → MEDSUR 12:36 → ICU 02-25 18:48 → MEDSUR 03-01 12:56
PROVIDERS: ADMIT Internal Medicine; ATTEND Internal Medicine